=== PATIENT | male | born 1960 | race Caucasian/White ===

== ENCOUNTER 2023-04-20 06:39 | Outpatient (OUT) | payer OTHER, SELFPAY ==
[2023-04-20 08:36] LABS: Prostate Specific Antigen Dx <0.13 ng/mL (<=4.00)
== END 2023-04-20 06:40 | disposition home or self-care (01) ==
LOC: LAB 06:46
PROVIDERS: PCP Internal Medicine; Visit Provider Urology
DX: C61 Malignant neoplasm of prostate (principal)
CPT/HCPCS: 36415; 84153

== ENCOUNTER 2023-12-29 11:47 | Outpatient (OUT) | payer OTHER, SELFPAY ==
[2023-12-29 12:55] LABS: Prostate Specific Antigen Dx <0.13 ng/mL (<=4.00)
== END 2023-12-29 11:48 | disposition home or self-care (01) ==
LOC: LAB 11:48
PROVIDERS: PCP Internal Medicine; Visit Provider Urology
DX: C61 Malignant neoplasm of prostate (principal)
CPT/HCPCS: 36415; 84153

== ENCOUNTER 2024-04-22 14:03 | Outpatient (OUT) | payer OTHER, SELFPAY ==
[2024-04-22 14:29] LABS: Basophils Absolute Auto 0.1 10^3/uL (0.0-0.1); Basophils Percent Auto 0.8 % (0.2-2.0); Eosinophils Absolute Auto 0.1 10^3/uL (0.0-0.7); Eosinophils Percent Auto 1.1 % (0.9-7.0); Hematocrit 44.6 % (42.0-54.0); Immature Granulocytes Abs Auto 0.01 10^3/uL (0.00-0.03); Immature Granulocytes Pct Auto 0.1 % (0.0-0.5); Lymphocytes Absolute Auto 1.5 10^3/uL (1.2-3.8); Lymphocytes Percent Auto 20.3 % (20.5-60.0); Mean Corpuscular HGB Conc 33.6 g/dL (29.9-35.2); Mean Corpuscular Hemoglobin 29.4 pg (25.9-34.0); Mean Corpuscular Volume 87.3 fL (80.0-94.0); Mean Platelet Volume 9.4 fL (9.5-13.5); Monocytes Absolute Auto 0.5 10^3/uL (0.3-0.8); Neutrophils Percent Auto 70.7 % (43.0-75.0); Platelet Count 257 10^3/uL (150-450); Red Blood Count 5.11 10^6/uL (4.70-6.10); White Blood Count 7.1 10^3/uL (4.0-11.0)
[2024-04-22 15:17] LABS: Alanine Aminotransferase 17 U/L (16-63); Albumin Globulin Ratio 1.3; Albumin Level 3.9 g/dL (3.4-5.0); Alkaline Phosphatase 57 U/L (46-116); Anion Gap 11.7; Aspartate Amino Transferase 12 U/L (15-37); BUN Creatinine Ratio 19.1; Bilirubin Total 0.8 mg/dL (0.2-1.0); Chloride 101 mmol/L (98-107); Estimated GFR (African America >60 (>=60); Estimated GFR (Non-African Ame >60 (>=60); Glucose 105 mg/dL (74-106); Potassium 3.7 mmol/L (3.5-5.1); Sodium 138 mmol/L (136-145); Thyroid Stimulating Hormone 1.183 uIU/mL (0.358-3.740); Total Protein 6.9 g/dL (6.4-8.2)
== END 2024-04-22 14:04 | disposition home or self-care (01) ==
LOC: LAB 14:04
PROVIDERS: PCP Internal Medicine; Visit Provider Internal Medicine
DX: R63.4 Abnormal weight loss (principal); C61 Malignant neoplasm of prostate; I10 Essential (primary) hypertension; E78.00 Pure hypercholesterolemia, unspecified
CPT/HCPCS: 36415; 80053; 84443; 85025

== ENCOUNTER 2024-04-25 13:55 | Emergency (ER) | payer OTHER, SELFPAY ==
[2024-04-25 14:09] VITALS: BP 134/91; PULSE 98; TEMP 37.3; O2SAT 98
--- NOTE | 2024-04-25 15:20 | CT_ITS ---
The [address] [address] Patient Name: JACQUELINE DIAZ MRN: [id number] date: 1960 Sex: M Assigned Patient Location: ER Current Patient Location: ER Accession/Order Number: [id number] Exam Date: 04/25/2024 15:43 Report Date: 04/25/2024 16:17 At the request of: CURLY WYNNE Procedure: CT abdomen pelvis w con CT ABDOMEN/PELVIS WITH IV CONTRAST. INDICATION: 20 lb weight loss. COMPARISON: There are no other studies available for comparison. TECHNIQUE: Contiguous axial images were obtained from the lung bases to the pelvic floor following the intravenous administration of contrast. Coronal and sagittal reformations are provided. FINDINGS: LOWER LUNGS: Clear. LIVER/BILIARY TREE: No mass. No intrahepatic ductal dilatation. There are calcified granulomas GALLBLADDER: No significant gallbladder wall thickening. No radiopaque stone. CBD: Normal CBD. SPLEEN: Normal in size. There are calcified granulomas. PANCREAS: No acute findings. No peripancreatic fluid or inflammation. No pancreatic duct dilatation. No discrete mass. ADRENALS: Normal. KIDNEYS: There are a few bilateral renal cysts measuring up to 1.3 cm and the right kidney. No hydronephrosis. There are nonobstructing bilateral renal stones measuring up to 2 mm. STOMACH AND BOWEL: Stomach is unremarkable. No dilated bowel loops. No bowel wall thickening. Moderate colonic fecal load. APPENDIX: Normal appendix. PERITONEAL CAVITY: No fluid. No fat stranding. ABDOMINAL WALL: No subcutaneous stranding. No subcutaneous fluid collection. LYMPH NODES: No mesenteric or retroperitoneal lymphadenopathy by CT criteria. ABDOMINAL AORTA: No aneurysm. PELVIS: Decompressed bladder. Status post prostatectomy. MUSCULOSKELETAL: No acute osseous abnormality. CT/CT abdomen pelvis w con IMPRESSION: No acute abnormality in the abdomen or pelvis. Moderate colonic and rectal fecal load. Electronically authenticated by: PRIMO URENA Date: 04/25/2024 16:17
--- NOTE | 2024-04-25 15:20 | XR_ITS ---
The [address] [address] Patient Name: JACQUELINE DIAZ MRN: [id number] date: 1960 Sex: M Assigned Patient Location: ER Current Patient Location: ER Accession/Order Number: [id number] Exam Date: 04/25/2024 15:52 Report Date: 04/25/2024 16:16 At the request of: CURLY WYNNE Procedure: XR chest 2V EXAM: XR chest 2V HISTORY: 20 lb wieght loss COMPARISON: 02/25/2021 TECHNIQUE: Chest X-ray, 2 views FINDINGS: Support devices: None. Lungs/pleura: No consolidation, effusion, or pneumothorax. No visible mass. Calcified granuloma is noted in the right upper lobe. Heart and mediastinum: Normal contours. No lymphadenopathy. Right paratracheal and hilar calcified lymph nodes, likely due to prior granulomatous disease. Bones: No acute abnormality identified. XR/XR chest 2V Impression: No radiographic evidence of acute cardiopulmonary process. Electronically authenticated by: LOREE MUHAMMAD Date: 04/25/2024 16:16
[2024-04-25 15:38] LABS: Bilirubin Urine NEGATIVE (NEGATIVE); Blood Urine NEGATIVE (NEGATIVE); Clarity Urine CLEAR (CLEAR); Color Urine YELLOW (YELLOW); Glucose Urine UA 100 mg/dL (NEGATIVE); Ketones Urine 15 mg/dL (NEGATIVE); Leukocyte Esterase Urine NEGATIVE (NEGATIVE); Nitrite Urine NEGATIVE (NEGATIVE); Protein Urine NEGATIVE (NEG/TRACE); Specific Gravity Urine >=1.030 (1.005-1.025)
--- NOTE | 2024-04-25 16:16 | ED.GENADUL1 ---
HPI HPI - General Adult General Chief complaint: Recheck/Abnormal Lab/Rx Stated complaint: GENERAL WEAKNESS Time Seen by Provider: 04/25/24 15:13 Source: patient Mode of arrival: walk-in Limitations: no limitations History of Present Illness HPI narrative: 63-year-old gentleman presents here with a chief complaint of constipation and decreased appetite. He states his stomach has been growling more than usual but he does not feel like eating. He states he believes he may have a pinworm infection although he is not seeing any sort of abnormalities in his stool. He had blood work drawn today by his primary care physician's office results were reviewed here. Patient states he also had orders for a CT scan and chest x-ray which she has not yet had performed. Patient's vital signs are stable. He does not appear toxic abdomen soft nontender to palpation initially. Related Data Previous Rx's ?Medication ?Instructions ?Recorded polyethylene glycol 3350 17 gram 34 g PO DAILY 4 days #14 ea 04/25/24 oral powder packet (Miralax) Allergies Allergy/AdvReac Type Severity Reaction Status Date / Time No Known Drug Allergies Allergy Verified 04/25/24 14:14 Opioid HPI Opioid Management Most Recent Opioid Data: No Data to Display Review of Systems ROS Narrative All Systems are negative except as noted/marked.All systems reviewed and otherwise negative [facility] Medical History (Updated 04/25/24 @ 16:54 by Alysha Osborne) Hypertension ?I10 - Essential (primary) hypertension (ICD-10) Social History Little interest or pleasure in doing things: not at all Feeling down, depressed, or hopeless: not at all Exam Narrative Exam Narrative: Nurses note and vital signs reviewed and patient is not hypoxic. General: The patient appears well and in no apparent distress. Patient is resting comfortably on cart. Skin: Warm, dry, no pallor noted. There is no rash noted. Head: Normocephalic, atraumatic Eye: Normal conjunctiva, no drainage, EOMI. PERRL Ears, Nose, Mouth, and Throat: oral mucosa is moist. Nares patent. Mouth without vesicles. Ear canals patent. Tm's without Erythema Cardiovascular: Regular Rate and Rhythm Respiratory: Patient is in no distress, no accessory muscle use, lungs are clear to auscultation, no wheezing, rales or rhonchi Back: non-tender, no CVA tenderness bilaterally to percussion. GI: Normal bowel sounds, no tenderness to palpation, no masses appreciated. No rebound, guarding, or rigidity noted. Musculoskeletal: The patient has no evidence of calf tenderness, no pitting edema, symmetrical pulses noted bilaterally Neurological: A&O x4, normal speech Psychiatric: Cooperative Constitutional Vital Signs, click to edit/add: Last Vital Signs Temp 99.1 F 04/25/24 14:09 Pulse 98 H 04/25/24 14:09 Resp 18 04/25/24 14:09 BP 134/91 04/25/24 14:09 Pulse Ox 98 04/25/24 14:09 O2 Del Method Room Air 04/25/24 14:09 Course Vital Signs Vital signs: Vital Signs Temperature 99.1 F 04/25/24 14:09 Pulse Rate 98 H 04/25/24 14:09 Respiratory Rate 18 04/25/24 14:09 Blood Pressure 134/91 04/25/24 14:09 Pulse Oximetry 98 04/25/24 14:09 Oxygen Delivery Method Room Air 04/25/24 14:09 Temperature 99.1 F 04/25/24 14:09 Pulse Rate 98 H 04/25/24 14:09 Respiratory Rate 18 04/25/24 14:09 Blood Pressure 134/91 04/25/24 14:09 Pulse Oximetry 98 04/25/24 14:09 Oxygen Delivery Method Room Air 04/25/24 14:09 Medical Decision Making [facility] Narrative Medical decision making narrative: 63-year-old gentleman presents here with a chief complaint of constipation and decreased appetite. He states his stomach has been growling more than usual but he does not feel like eating. He states he believes he may have a pinworm infection although he is not seeing any sort of abnormalities in his stool. He had blood work drawn today by his primary care physician's office results were reviewed here. Patient states he also had orders for a CT scan and chest x-ray which she has not yet had performed. Patient's vital signs are stable. He does not appear toxic abdomen soft nontender to palpation initially. 63-year-old male who presented here with a chief complaint of abdominal discomfort and weight loss. He was seen by primary care physician and had several tests including lab work ordered. Lab work today was reviewed and showed no acute abnormalities. Chest x-ray and CT scan were also ordered but patient had not yet had those completed. Upon arrival to the emergency room today, IV was established patient had a CT scan with contrast as well as a chest x-ray. Reading below shows patient does have a large amount of stool noted in the abdomen. No other acute abnormalities chest x-ray was normal. Patient was able to give us a stool specimen here. He was concerned he states he is no longer staying in his home because of fear of mold and also fear of pinworms he believes he was staying with any other family or friend who states they will no longer let him stay there for fear he has pinworms. Patient has not actually seen any worms or any issues in his stool. As stated cultures have been obtained. Patient will be discharged home prescription for MiraLAX to help with the constipation. Patient is encouraged to follow-up with Dr. Faizan gifford for further evaluation and also a colonoscopy which is to be set up. Patient states he had an order for a colonoscopy in early November and did not have it performed. Appeared toxic. Vital signs are stable he is not febrile abdomen was soft nontender to palpation. Medical Records Medical records reviewed: Yes I reviewed the patient's medical records Lab Data Lab results reviewed: Yes I reviewed the patient's lab results Labs: Lab Results 04/25/24 Range/Units 15:30 Urine Color Yellow (YELLOW) Urine Clarity Clear (CLEAR) Urine pH 6.0 (5.0-9.0) Ur Specific Railroad >=1.030 A (1.005-1.025) Urine Protein Negative (NEG/TRACE) mg/dL Urine Glucose (UA) 100 A (NEGATIVE) mg/dL Urine Ketones 15 A (NEGATIVE) mg/dL Urine Occult Blood Negative (NEGATIVE) Urine Nitrite Negative (NEGATIVE) Urine Bilirubin Negative (NEGATIVE) Urine Urobilinogen 2.0 A (0.2-1.0) EU/dL Ur Leukocyte Esterase Negative (NEGATIVE) Imaging Data CT scan - abdomen: Attestation: I have reviewed the pertinent imaging results. Radiologist's impression: ITS Impressions Abdomen/Pelvis CT 04/25/24 15:20 IMPRESSION: No acute abnormality in the abdomen or pelvis. Moderate colonic and rectal fecal load. Electronically authenticated by: PRIMO URENA Date: 04/25/2024 16:17 Chest X-Ray 04/25/24 15:20 Impression: No radiographic evidence of acute cardiopulmonary process. Electronically authenticated by: LOREE MUHAMMAD Date: 04/25/2024 16:16 Discharge Plan Discharge Chief Complaint: Recheck/Abnormal Lab/Rx Clinical Impression: Constipation Patient Disposition: Home, Self-Care Time of Disposition Decision: 16:54 Condition: Good Prescriptions / Home Meds: New polyethylene glycol 3350 [Miralax] 17 gram powder in packet 34 g PO DAILY 4 Days Qty: 14 0RF Print Language: Hungarian Instructions: Constipation (ED), High Fiber Diet (ED) Referrals: Pardeep Gifford DO [Primary Care Provider] - 1 week
[2024-04-25 17:01] VITALS: BP 134/88; PULSE 80; O2SAT 99
== END 2024-04-25 17:01 | disposition home or self-care (01) ==
PROVIDERS: Physician Assistant; Emergency Provider Emergency Medicine; PCP Internal Medicine
DX: K59.00 Constipation, unspecified (principal)
CPT/HCPCS: 71046; 74177; 81003; 87045; 87046; 87427; 99285; Q9967

== ENCOUNTER 2024-05-21 09:55 | Outpatient (OUT) | payer OTHER, SELFPAY ==
--- OUTSIDE RECORDS SUMMARY | 2024-05-21 10:01 | XMS_ITS | CCD ---
Author Organization [facility] Care Team Providers Care Vision Rehabilitation Therapist Name Role Phone PARDEEP MCLAUGHLIN Primary Care Physician [phone] TRA ., DR IVERSON Attending Unavailable GAITAN ., DR IVERSON Consulting Unavailable GAITAN ., DR IVERSON Admitting Unavailable BALL, DR CERVANTES Primary Care Unavailable GAITAN ., DR IVERSON Attending Unavailable GAITAN ., DR IVERSON Consulting Unavailable GAITAN ., DR IVERSON Admitting Unavailable ARNOLDO, DR CERVANTES Primary Care Unavailable MCGILL, REBEKA Consulting Unavailable GAITAN ., DR IVERSON Attending Unavailable GAITAN ., DR IVERSON Consulting Unavailable GAITAN ., DR IVERSON Admitting Unavailable RANOLDO, DR CERVANTES Primary Care Unavailable NICOLÁS [place], DR CARLITOS Ibanez Consulting Unavaila ble GAITAN ., DR IVERSON Procedure Practitioner Unav ailable AGUBOSIM, BRANDIN Consulting Unavailable DORKOSKIE, MAXIME Consulting Unavailable GAITAN ., DR IVERSON Attending Unavailable GAITAN ., DR IVERSON Consulting Unavailable ARNOLDO, DR CERVANTES Primary Care Unavailable GAITAN ., DR IVERSON Admitting Unavailable ARNOLDO, DR CERVANTES Primary Care Unavailable BALL, DR CERVANTES Admitting Unavailable ARNOLDO, DR CERVANTES Attending Unavailable BALL, DR CERVANTES Consulting Unavailable BALL, DR CERVANTES Primary Care Unavailable GAITAN ., DR IVERSON Attending Unavailable GAITAN ., DR IVERSON Consulting Unavailable GAITAN ., DR IVERSON Admcosta Unavailable GAITAN ., DR IVERSON Attending Unavailable BALL, DR CERVANTES Primary Care Unavailable GAITAN ., DR IVERSON Admcosta Unavailable GAITAN ., DR IVERSON Consulting Unavailable Arnoldo, Pardeep Unavailable Isidoro GAITAN Attending Unavailable Isidoro GAITAN Attending Unavailable Isidoro GAITAN Attending Unavailable Medications Current Medications Medication Drug Class(es) Dates Sig (Normalized) Sig (Original) cephalexin 500 mg oral capsule (2 sources) Cephalosporin Antibacterial Start: 12-17-2021 cephalexin 500 mg Cap Refills(s) 0 Start Date: 12/17/21 Status: Ordered losartan potassium 25 mg oral tablet (5 sources) Angiotensin 2 Receptor Ita Start: 01-01-2024 losartan 25 mg Tab Refills(s) 0 Start Date: 01/01/24 Status: Ordered Start: 06-26-2023 take 1 tablet by corby th every twenty-four hours Losartan Potassium 25 MG 1 tablet Orally Once a day Jun, Active olmesartan medoxomil 5 mg oral tablet (1 source) Angiotensin 2 Receptor Ita Start: 05-31-2023 Olmesartan Medoxomil 5 MG as directed Orally Once a day for 30 days May, Active tadalafil 20 mg oral tablet (10 sources) Phosphodiesterase 5 Inhibitor Start: 04-24-2023 take 1 tablet by mouth once daily as needed Cialis 20 mg Tab 20 mg = 1 tab(s), Oral, Daily, PRN for erectile dysfunction, # 30 tab(s), Refills(s) 1, Pharmacy: [id number], 173, cm, 04/24/23 13:49:00 EDT, Height/Length Dosing, 72.1, kg, 04/24/23 13:49:00 EDT, Weight Dosing Start Date: 04/24/23 Status: Ordered Start: 01-14-2022 End: 01-09-2023 take 1 tablet by mouth every twenty-four hours Cialis 20 MG 1 tablet as needed Orally Once a day for 0 days May, Active Completed/Discontinued Medications Medication Drug Class(es) Dates Sig (Normalized) Sig (Original) erythromycin 500 mg oral tablet (3 sources) Macrolide, Macrolide Antimicrobial Start: 11-25-2021 take 2 tablets by mouth three times daily erythromycin 500 mg Tab 1,000 mg = 2 tab(s), Oral, TID, Take 2 pills at 2pm, 4pm and midnight, # 6 tab(s), Refills(s) 0, Pharmacy: [facility]/pharmacy #[id number], 173, cm, 11/01/21 12:52:00 EDT, Height/Length Dosing, 72.3, kg, 11/01/21 12:52:00 EDT, Weight Dosing Start Date: 11/25/21 Status: Ordered metroNIDAZOLE 250 mg oral tablet (3 sources) Nitroimidazole Antimicrobial Start: 11-25-2021 take 1 tablet by mouth three times daily Flagyl 250 mg Tab 250 mg = 1 tab(s), Oral, TID, Take 1 tablet at 2pm, 4pm and midnight, # 3 tab(s), Refills(s) 0, [id number], cm, 11/01/21 12:52:00 EDT, Height/Length Dosing, 72.3, kg, 11/01/21 12:52:00 EDT, Weight Dosing Start Date: 11/25/21 Status: Ordered neomycin sulfate 500 mg oral tablet (3 sources) Aminoglycoside Antibacterial Start: 11-25-2021 take 2 tablets by mouth three times daily neomycin 500 mg Tab 1,000 mg = 2 tab(s), Oral, TID, Take 2 pills at 2pm, 4pm, and midnight, # 6 tab(s), Refills(s) 0, [id number], cm, 11/01/21 12:52:00 EDT, Height/Length Dosing, 72.3, kg, 11/01/21 12:52:00 EDT, Weight Dosing Start Date: 11/25/21 Status: Ordered Problems Problem Classification Problem Date Documented Da te Episodic/Chronic Anxiety disorders (18 sources) Generalized anxiety disorder; Translations: [Generalized anxiety disorder] Onset: 12-09-2021 08-20-2021 Chronic Cancer of prostate (20 sources) Malignant neoplasm of prostate; Translations: [Malignant tumor of prostate] Onset: 11-01-2021 Chronic Cancer of prostate (2 sources) Personal history of malignant neoplasm of prostate; Translations: [History of malignant neoplasm of prostate] Onset: 01-01-2024 Episodic Disorders of lipid metabolism (17 sources) Hyperlipidemia, group A; Translations: [Hyperlipidemia, unspecified] Onset: 12-16-2021 08-20-2021 Chronic Essential hypertension (8 sources) Essential hypertension; Translations: [Essential (primary) hypertension] Chronic Genitourinary symptoms and ill-defined conditions (7 sources) Unspecified urinary incontinence; Translations: [Urinary incontinence] Onset: 01-14-2022 Chronic Hyperplasia of prostate (13 sources) Benign prostatic hypertrophy with outflow obstruction; Translations: [Benign prostatic hyperplasia with lower urinary tract symptoms] Onset: 11-01-2021 Chronic Mood disorders (9 sources) Recurrent major depressive episodes, mild ; Translations: [Major depressive disorder, single episode, unspecified] Onset: 12-16-2021 08-20-2021 Chronic Other and unspecified benign neoplasm (1 source) Benign neoplasm of descending colon Episodic Other circulatory disease (1 source) Elevated blood-pressure reading, without diagnosis of hypertension Episodic Other diseases of kidney and ureters (1 source) Urinary tract obstruction; Translations: [Other obstructive and reflux uropathy] Onset: 01-14-2022 Episodic Other male genital disorders (2 sources) Male erectile dysfunction, unspecified; Translations: [Erectile dysfunction] Onset: 01-01-2024 Chronic Other screening for suspected conditions (not mental disorders or infectious disease) (13 sources) Raised prostate specific antigen; Translations: [Elevated prostate specific antigen [PSA]] Onset: 11-01-2021 Episodic Otitis media and related conditions (2 sources) Unspecified Eustachian tube disorder, left ear Episodic Unclassified (1 source) CONTACT W/AND (SUSP) EXPOS COVID-19; Translations: [CONTACT W/AND (SUSP) EXPOS COVID-19] Onset: 12-09-2021 Results Test Name Value Interpretation Reference Range Facil ity Ambulatory Visit Summaryon 0 01-01-2024 Ambulatory Visit Summary TAWANDA WARNER :1960 Visit Date:01/01/2024 Ambulatory Visit Instructions Your Diagnosis History of prostate cancer ED (erectile dysfunction) Your Care Team Attending Physician - TRA NAGEL, Isidoro Deshpande Primary Care Physician - ARNOLDO [place], PARDEEP This Is Your Medications List tadalafil (Cialis 20 mg Tab) Contact prescribing physician if questions or concerns losartan (losartan 25 mg Tab) Procedures Performed Radical prostatectomy (12/10/2021), Transrectal biopsy of prostate using ultrasound (US) guidance (10/19/2021), Colonoscopy. Discharge Vitals Heart Rate (Peripheral) 76 Blood Pressure 132/81 Height 173 cm Height 68 in Weight 72 kg Weight 158.4 lb BMI 24.06 What to do next Scheduled Follow-Up Appointments Monday 10:45 AM EDT With: TRA NAGEL, Isidoro Deshpande Where: [facility] Lab Reportson 01-01-2024 Lab Reports [id number] [id number] [facility] Patient Educationon 01-01-20 Patient Education Oncology Prostate Cancer Screening Prostate cancer screening is testing that is done to check for the presence of prostate cancer in men. The prostate gland is a walnut-sized gland that is located below the bladder and in front of the rectum in males. The function of the prostate is to add fluid to semen during ejaculation. Prostate cancer is one of the most common types of cancer in men. Who should have prostate cancer screening? Screening recommendations vary based on age and other risk factors, as well as between the professional organizations who make the recommendations. In general, screening is recommended if: ? You are age 50 to 70 and have an average risk for prostate cancer. You should talk with your health care provider about your need for screening and how often screening should be done. Because most prostate cancers are slow growing and will not cause , screening in this age group is generally reserved for men who have a 10- to 15-year life expectancy. ? You are younger than age 50, and you have these risk factors: ? Having a father, brother, or uncle who has been diagnosed with prostate cancer. The risk is higher if your family member's cancer occurred at an early age or if you have multiple family members with prostate cancer at an early age. ? Being a male who is Black or is of Gene or sub-Saharan descent. In general, screening is not recommended if: ? You are younger than age 40. ? You are between the ages of 40 and 49 and you have no risk factors. ? You are 70 years of age or older. At this age, the risks that screening can cause are greater than the benefits that it may provide. If you are at high risk for prostate cancer, your health care provider may recommend that you have screenings more often or that you start screening at a younger age. How is screening for prostate cancer done? The recommended prostate cancer screening test is a blood test called the prostate-specific antigen (PSA) test. PSA is a protein that is made in the prostate. As you age, your prostate naturally produces more PSA. Abnormally high PSA levels may be caused by: ? Prostate cancer. ? An enlarged prostate that is not caused by cancer (benign prostatic hyperplasia, or BPH). This condition is very common in older men. ? A prostate gland infection (prostatitis) or urinary tract infection. ? Certain medicines such as male hormones (like testosterone) or other medicines that raise testosterone levels. A rectal exam may be done as part of prostate cancer screening to help provide information about the size of your prostate gland. When a rectal exam is performed, it should be done after the PSA level is drawn to avoid any effect on the results. Depending on the PSA results, you may need more tests, such as: ? A physical exam to check the size of your prostate gland, if not done as part of screening. ? Blood and imaging tests. ? A procedure to remove tissue samples from your prostate gland for testing (biopsy). This is the only way to know for certain if you have prostate cancer. What are the benefits of prostate cancer screening? ? Screening can help to identify cancer at an early stage, before symptoms start and when the cancer can be treated more easily. ? There is a small chance that screening may lower your risk of dying from prostate cancer. The chance is small because prostate cancer is a slow-growing cancer, and most men with prostate cancer from a different cause. What are the risks of prostate cancer screening? The main risk of prostate cancer screening is diagnosing and treating prostate cancer that would never have caused any symptoms or problems. This is called overdiagnosisand overtreatment. PSA screening cannot tell you if your PSA is high due to cancer or a different cause. A prostate biopsy is the only procedure to diagnose prostate cancer. Even the results of a biopsy may not tell you if your cancer needs to be treated. Slow-growing prostate cancer may not need any treatment other than monitoring, so diagnosing and treating it may cause unnecessary stress or other side effects. Questions to ask your health care provider ? When should I start prostate cancer screening? ? What is my risk for prostate cancer? ? How often do I need screening? ? What type of screening tests do I need? ? How do I get my test results? ? What do my results mean? ? Do I need treatment? Where to find more information ? The [place] [employer]: www.cancer.org ? [place] [employer]: www.auanet.org Contact a health care provider if: ? You have difficulty urinating. ? You have pain when you urinate or ejaculate. ? You have blood in your urine or semen. ? You have pain in your back or in the area of your prostate. Summary ? Prostate cancer is a common type of cancer in men. The prostate gland is located below the bladder and in front of the rectum. This gland adds flu (more content not included)... Normal [facility] Urology Office/Clinic Noteon 01-01-2024 Urology Office/Clinic Note Chief Complaint 6m PSA HPI Staff 8 month f/u with PSA Dx: prostate cancer S/p radical prostatectomy 12/10/21. *Cialis 20mg PRN-pt states he does not use that often PSA 12/29/23- <0.13 Denies all urinary complaints. No concerns at this time. History of Present Illness Tests reviewed: reviewed UA, PSA I have reviewed the previous health record information and history for this patient from Dr. Gaitan. I have reviewed and verified the staff HPI to be accurate for this encounter. Review of Systems PHQ Score Initial Depression Screen Score: 0 SCORE ROS - Provider Constitutional: denies weight loss, denies hot flashes. Eyes: denies eye problems. Gastrointestinal: denies nausea, denies vomiting. Cardiovascular: denies chest pain or angina. Integumentary: no dryness Musculoskeletal: denies musculoskeletal symptoms. ENMT: denies otolaryngeal symptoms. Respiratory: no shortness of breath. Heme/Lymph: denies easy bleeding tendency, denies easy bruising tendency. Psychiatric: no confusion, no anxiety. Genitourinary: See HPI. Physical Exam Vitals & Measurements HR: 76(Peripheral) BP: 132/81 HT: 68 in HT: 173 cm WT: 72 kg WT: 158.4 lb BMI: 24.06 General Appearance: alert, no distress, well nourished, well developed male. Genitourinary: normal scrotum, normal testes, normal urethra, normal epididymis, normal vas deferens/spermatic cord. Flank Pain: none. Bladder: nonpalpable. Assessment/Plan 1. History of prostate cancer (Z85.46: Personal history of malignant neoplasm of prostate) PSA: 01/12/22 - 0.05 05/05/22 - <0.13 09/08/22 - <0.13 04/20/23 - <0.13 12/29/23 - <0.13 S/p radical prostatectomy 12/10/21. Feels he empties completely. Denies UUI. Occasional weak stream, not bothersome. Denies hesitancy or start/stop stream. Denies gross hematuria. UA today negative for blood and infection. PSA remains stable and undetectable. Discussed extending out surveillance to 1 year vs 6 mos. Pt is agreeable. -PSA in 1 year 2. ED (erectile dysfunction) (N52.9: Male erectile dysfunction, unspecified) Taking Cialis 20mg prn to help with blood flow for erections s/p prostatectomy. Follow-up With When Contact Information TRA NAGEL, Isidoro Deshpande, URL [facility] [address], [place] [address] [id number] Additional Instructions: 1 yr w/ PSA Patient Education Prostate Cancer Screening I, Maddie Hung, personally scribed for Dr. Gaitan on 01/01/2024 11:22:59. . Documentation recorded by the scribe, Maddie Hung, accurately reflects the services(s) I performed and decisions made by me. Authenticated by Dr. Gaitan on 01/01/2024 11:24:52. Problem List/Past Medical History Ongoing BPH with urinary obstruction ED (erectile dysfunction) Elevated PSA HERI (generalized anxiety disorder) History of prostate cancer Hyperlipidemia, group A Mild episode of recurrent major depressive disorder Urinary leakage Historical No qualifying data Procedure/Surgical History Radical prostatectomy (12/10/2021), Transrectal biopsy of prostate using ultrasound (US) guidance (10/19/2021), Colonoscopy. Medications Cialis 20 mg Tab, 20 mg= 1 tab(s), Oral, Daily, PRN, 1 refills losartan 25 mg Tab Allergies No Known Allergies Social History Tobacco Never (less than 100 in lifetime) Tobacco Use:. Never Smokeless Tobacco Use:., 04/24/2023 Family History Diabetes: Father. Hypertension: Father. Prostate cancer: Father. Uterine cancer: Mother. Immunizations Vaccine Date Status Comments influenza virus vaccine, inactivated - Not Given Postpone due to refusal SARS-CoV-2 (COVID-19) Ad26 vaccine 06/30/2021 Recorded SARS-CoV-2 (COVID-19) mRNA BNT-162b2 vax 05/19/2021 Recorded SARS-CoV-2 (COVID-19) mRNA BNT-162b2 vax 05/2021 Recorded Pt had 2 shots SARS-CoV-2 (COVID-19) mRNA BNT-162b2 vax 04/28/2021 Recorded Lab Results Ambulatory Point of Care Results Bilirubin Urine Dipstick: 2+ Moderate (01/01/24 10:57:00) Blood Urine Dipstick: Trace-intact (01/01/24 10:57:00) Glucose Urine Dipstick: Negative (01/01/24 10:57:00) Ketones Urine Dipstick: 2+ 40 mg/dl (01/01/24 10:57:00) Leukocytes Urine Dipstick: Negative (01/01/24 10:57:00) Nitrite Urine Dipstick: Negative (01/01/24 10:57:00) Protein Urine Dipstick: Trace (01/01/24 10:57:00) Specific [place] Urine Dipstick: >=1.030 (01/01/24 10:57:00) Urine Appearance Urine Dipstick: Clear (01/01/24 10:57:00) Urine Color Urine Dipstick: Yellow (01/01/24 10:57:00) Urobilinogen Urine Dipstick: Normal 0.2-1 EU/dl (01/01/24 10:57:00) pH Urine Dipstick: 5.5 (01/01/24 10:57:00) Normal [facility] Comment on above: Result Comment: Elec tronically Signed By: Isidoro GAITAN MD\.br\Date and Time Signed: 01/01/24 11:24 EDT\.br\Electronically Co-Signed By: Maddie Hung\.br\Date and Time Co-Signed: 01/01/24 11:23 EDT Ambulatory Visit Summaryon 0 04-24-2023 Ambulatory Visit Summary TAWANDA WARNER :1960 Visit Date:04/24/2023 Ambulatory Visit Instructions Your Diagnosis Prostate cancer Tests Performed Urnls Dip Stick Auto w/o Microscopy POC [id number] Your Care Team Attending Physician - Isidoro GAITAN MD Primary Care Physician - PARDEEP MCLAUGHLIN DO This Is Your Medications List tadalafil (Cialis 20 mg Tab) Procedures Performed Radical prostatectomy (12/10/2021), Transrectal biopsy of prostate using ultrasound (US) guidance (10/19/2021), Colonoscopy. Discharge Vitals Temperature (Temporal Artery) 36.8 ?C Heart Rate (Peripheral) 84 Blood Pressure 118/82 Height 173 cm Height 68 in Weight 72.1 kg Weight 158.62 lb BMI 24.09 What to do next Scheduled Follow-Up Appointments Monday. 2023 10:30 AM EDT With: TRA NAGEL, Isidoro Deshpande Where: [facility] [place] Kameron Normal [facility] Patient Educationon 04-24-20 Patient Education Oncology Prostate Cancer The prostate is a small gland that produces fluid that makes up semen (seminal fluid). It is located below the bladder in men, in front of the rectum. Prostate cancer is the abnormal growth of cells in the prostate gland. What are the causes? The exact cause of this condition is not known. What increases the risk? You are more likely to develop this condition if: ? You are 65 years of age or older. ? You have a family history of prostate cancer. ? You have a family history of breast and ovarian cancer. ? You have genes that are passed from parent to child (inherited), such as BRCA1 and BRCA2. ? You have Narvaez syndrome. men and men of descent are diagnosed with prostate cancer at higher rates than other men. The reasons for this are not well understood and are likely due to a combination of genetic and environmental factors. What are the signs or symptoms? Symptoms of this condition include: ? Problems with urination. This may include: ? A weak or interrupted flow of urine. ? Trouble starting or stopping urination. ? Trouble emptying the bladder all the way. ? The need to urinate more often, especially at night. ? Blood in urine or semen. ? Persistent pain or discomfort in the lower back, lower abdomen, or hips. ? Trouble getting an erection. ? Weakness or numbness in the legs or feet. How is this diagnosed? This condition can be diagnosed with: ? A digital rectal exam. For this exam, a health care provider inserts a gloved finger into the rectum to feel the prostate gland. ? A blood test called a prostate-specific antigen (PSA) test. ? A procedure in which a sample of tissue is taken from the prostate and checked under a microscope (prostate biopsy). ? An imaging test called transrectal ultrasonography. Once the condition is diagnosed, tests will be done to determine how far the cancer has spread. This is called staging the cancer. Staging may involve imaging tests, such as a bone scan, CT scan, PET scan, or MRI. Stages of prostate cancer The stages of prostate cancer are as follows: ? Stage 1 (I). At this stage, the cancer is found in the prostate only. The cancer is not visible on imaging tests, and it is usually found by accident, such as during prostate surgery. ? Stage 2 (II). At this stage, the cancer is more advanced than it is in stage 1, but the cancer has not spread outside the prostate. ? Stage 3 (III). At this stage, the cancer has spread beyond the outer layer of the prostate to nearby tissues. The cancer may be found in the seminal vesicles, which are near the bladder and the prostate. ? Stage 4 (IV). At this stage, the cancer has spread to other parts of the body, such as the lymph nodes, bones, bladder, rectum, liver, or lungs. Prostate cancer grading Prostate cancer is also graded according to how the cancer cells look under a microscope. This is called the [place] score and the total score can range from 6?10, indicating how likely it is that the cancer will spread (metastasize) to other parts of the body. The higher the score, the greater the likelihood that the cancer will spread. ? [place] 6 or lower: This indicates that the cancer cells look similar to normal prostate cells (well differentiated). ? Mart[place] 7: This indicates that the cancer cells look somewhat similar to normal prostate cells (moderately differentiated). ? [place] 8, 9, or 10: This indicates that the cancer cells look very different than normal prostate cells (poorly differentiated). How is this treated? Treatment for this condition depends on several factors, including the stage of the cancer, your age, personal preferences, and your overall health. Talk with your health care provider about treatment options that are recommended for you. Common treatments include: ? Observation for early stage prostate cancer (active surveillance). This involves having exams, blood tests, and in some cases, more biopsies. For some men, this is the only treatment needed. ? Surgery. Types of surgeries include: ? Open surgery (radical prostatectomy). In this surgery, a larger incision is made to remove the prostate. ? A laparoscopic radical prostatectomy. This is a surgery to remove the prostate and lymph nodes through several small incisions. It is often referred to as a minimally invasive surgery. ? A robotic radical prostatectomy. This is laparoscopic surgery to remove the prostate and lymph nodes with the help of robotic arms that are controlled by the surgeon. ? Cryoablation. This is surgery to freeze and destroy cancer cells. ? Radiation treatment. Types of radiation treatment include: ? External beam radiation. This type aims beams of radiation from outside the body at the prostate to destroy cancerous cells. ? Brachytherapy. This type uses radioactive needles, seeds, wires, or tubes that are implanted into the prostate gland. Like external be (more content not included)... Normal [facility] Reminderson 04-24-2023 Reminders - From: Maddie Hung To: CARMEN Gaitan; Sent: 04/24/2023 17:36:04 EDT Show up: 09/24/2023 16:35:00 EST Subject: PSA prior to appt Reminder Message Please Remember to:_have pt get PSA done prior to appt in 6 months. Normal [facility] Urology Office/Clinic Noteon 04-24-2023 Urology Office/Clinic Note Chief Complaint 6 month F/U with PSA HPI Staff 7 month F/U with PSA Last seen in our office on 09/12/2022 PSA 04/20/23 - 0.13 Previous DX; Prostate Cancer S/p radical prostatectomy done 12/10/21. *Cialis 20 mg QOD to help with blood flow for erections s/p prostatectomy.* He states it did not work well that he noticed. But he wants refills on this, he did not refill due to changing insurance. Urinary leakage Dysuria: _denies Incomplete bladder emptying: denies Hematuria: denies Frequency: 5-6 times a day Urgency: _denies Nocturia: _2-3 times a night Stream: denies hesitation, good stream Leaking: denies Post void dripping: denies Wearing pads/ Depends: denies Urge incontinence: denies Stress incontinence: denies Incontinence without Sensory Awareness: denies Abdominal pain: denies Flank pain: denies Sexual complaints: _denies History of Present Illness Tests reviewed: reviewed UA, PSA I have reviewed the previous health record information and history for this patient from Dr. Gaitan. I have reviewed and verified the staff HPI to be accurate for this encounter. There have been no associated fever, chills, flank pain, or blood in the urine. Denies any urinary infections since last encounter. Review of Systems PHQ Score Initial Depression Screen Score: 0 ROS - Provider Constitutional: denies weight loss, denies hot flashes. Eyes: denies eye problems. Gastrointestinal: denies nausea, denies vomiting. Cardiovascular: denies chest pain or angina. Integumentary: no dryness Musculoskeletal: denies musculoskeletal symptoms. ENMT: denies otolaryngeal symptoms. Respiratory: no shortness of breath. Heme/Lymph: denies easy bleeding tendency, denies easy bruising tendency. Psychiatric: no confusion, no anxiety. Genitourinary: See HPI. Physical Exam Vitals & Measurements T: 36.8 ?C(Temporal Artery) HR: 84(Peripheral) BP: 118/82 HT: 68 in HT: 173 cm WT: 72.1 kg WT: 158.62 lb BMI: 24.09 General Appearance: alert, no distress, well nourished, well developed male. Genitourinary: normal scrotum, normal testes, normal urethra, normal epididymis, normal vas deferens/spermatic cord. Flank Pain: none. Bladder: nonpalpable. Assessment/Plan 1. Prostate cancer (C61: Malignant neoplasm of prostate) S/p radical prostatectomy 12/10/21. Continues taking Cialis 20mg PRN to help with blood flow for erections s/p prostatectomy. Reports he has not been taking it due to worries about insurance coverage. Educated pt to use [employer]. Discussed vacuum device, states he does not have an issue achieving an erection. UA today negative for blood and infection. Denies any bothersome urinary sxs. no leaking. PSA: 01/12/22 - 0.05 05/05/22 - <0.13 09/08/22 - <0.13 04/20/23 - <0.13 Follow up with PSA in 6 months or sooner if needed. Pt understands and agrees with plan. Follow-up With When Contact Information TRA NAGEL, Isidoro Deshpande, NI In 6 months [facility] [address], [place] [phone]- [phone] Additional Instructions: PSA Patient Education Prostate Cancer I, Maddie Hung, personally scribed for Dr. Gaitan on 04/24/2023 15:17:46. . Documentation recorded by the scribe, Maddie Hung, accurately reflects the services(s) I performed and decisions made by me. Authenticated by Dr. Gaitan on 04/24/2023 15:20:28. Problem List/Past Medical History Ongoing BPH with urinary obstruction Elevated PSA HERI (generalized anxiety disorder) Hyperlipidemia, group A Mild episode of recurrent major depressive disorder Prostate cancer Urinary leakage Historical No qualifying data Procedure/Surgical History Radical prostatectomy (12/10/2021), Transrectal biopsy of prostate using ultrasound (US) guidance (10/19/2021), Colonoscopy. Medications Cialis 20 mg Tab, 20 mg= 1 tab(s), Oral, Daily, PRN, 1 refills Allergies No Known Allergies Social History Tobacco Never (less than 100 in lifetime) Tobacco Use:. Never Smokeless Tobacco Use:., 04/24/2023 Family History Diabetes: Father. Hypertension: Father. Prostate cancer: Father. Uterine cancer: Mother. Immunizations Vaccine Date Status Comments influenza virus vaccine, inactivated - Not Given Postpone due to refusal SARS-CoV-2 (COVID-19) Ad26 vaccine 06/30/2021 Recorded SARS-CoV-2 (COVID-19) mRNA BNT-162b2 vax 05/19/2021 Recorded SARS-CoV-2 (COVID-19) mRNA BNT-162b2 vax 05/2021 Recorded Pt had 2 shots SARS-CoV-2 (COVID-19) mRNA BNT-162b2 vax 04/28/2021 Recorded Lab Results Ambulatory Point of Care Results Bilirubin Urine Dipstick: Negative (04/24/23 14:03:00) Blood Urine Dipstick: Negative (04/24/23 14:03:00) Glucose Urine Dipstick: Negative (04/24/23 14:03:00) Ketones Urine Dipstick: Negative (04/24/23 14:03:00) Leukocytes Urine Dipstick: Negative (04/24/23 14:03:00) Nitrite Urine Dipstick: Negative (04/24/23 14:03:00) Protein Urine Dips (more content not included)... Normal [facility] Comment on above: Result Comment: Elec tronically Signed By: Isidoro GAITAN MD\.br\Date and Time Signed: 04/24/23 15:20 EDT\.br\Electronically Co-Signed By: Maddie Hung.br\Date and Time Co-Signed: 04/24/23 15:18 EDT Lab Reportson 04-23-2023 Lab Reports [id number] 0CD:127 Normal [facility] CBC AUTO DIFFon 05-17-2022 BASO # 0.1 103/ul Normal 0.0-0.1 Comment on above: Performed By: #### B MP #### [facility] [address] [place] [address] Dr. Herson Narvaez Basophils/100 WBC (Bld) 1.0 % Normal 0.2-2.0 Comment on above: Performed By: #### B MP #### [facility] [address] [address] [address] Herson Narvaez EO # 0.2 103/ul Normal 0.0-0.7 Comment on above: Performed By: #### B MP #### [facility] [address] [address] [address] Herson Narvaez Eosinophils/100 WBC (Bld) 3.1 % Normal 0.9-7.0 [facility] Comment on above: Performed By: #### B MP #### [facility] [address] [place] [address] Dr. Herson Narvaez Erythrocyte distribution width (RBC) [Ratio] 15.8 % Critically high 11.0-15.0 [facility] Comment on above: Performed By: #### B MP #### [facility] [address] [address] [address] Herson Narvaez Hematocrit (Bld) [Volume fraction] 44.7 % Normal 42.0-54.0 Comment on above: Performed By: #### B MP #### [facility] [address] [place] [address] Dr. Herson Narvaez Hemoglobin (Bld) [Mass/Vol] 14.4 g/dL Normal 14.0-18.0 [facility] Comment on above: Performed By: #### B MP #### [facility] [address] [place] [address] Dr. Herson Narvaez IG # 0.01 10e3/ul Normal 0.00-0.03 [facility] Comment on above: Performed By: #### B MP #### [facility] [address] [place] [address] Dr. Herson Narvaez IG % 0.2 % Normal 0.0-0.5 Comment on above: Performed By: #### B MP #### [facility] [address] [place] [address] Dr. Herson Narvaez LYMPH # 1.5 103/ul Normal 1.2-3.8 [facility] Comment on above: Performed By: #### B MP #### [facility] [address] [place] [address] Dr. Herson Narvaez Lymphocytes/100 WBC (Bld) 26.0 % Normal 20.5-60.0 [facility] Comment on above: Performed By: #### B MP #### [facility] [address] [place] [address] Dr. Herson Narvaez MANUAL DIFF REQ NO Normal [facility] Comment on above: Performed By: #### B MP #### [facility] [address] [place] [address] Dr. Herson Narvaez MCH (RBC) [Entitic mass] 27.9 pg Normal 25.9-34.0 [facility] Comment on above: Performed By: #### B MP #### [facility] [address] [place] [address] Dr. Herson Narvaez MCHC (RBC) [Mass/Vol] 32.2 g/dL Normal 29.9-35.2 [facility] Comment on above: Performed By: #### B MP #### [facility] [address] [place] [address] Dr. Herson Narvaez MCV (RBC) [Entitic vol] 86.6 fL Normal 80.0-94.0 [facility] Comment on above: Performed By: #### B MP #### [facility] [address] [place] [address] Dr. Herson Narvaez MONO # 0.5 103/ul Normal 0.3-0.8 [facility] Comment on above: Performed By: #### B MP #### [facility] [address] [place] [address] Dr. Herson Narvaez Monocytes/100 WBC (Bld) 7.9 % Normal 1.7-12.0 [facility] Comment on above: Performed By: #### B MP #### [facility] [address] [place] [address] Dr. Herson Narvaez NEUT # 3.6 103/ul Normal 1.4-6.5 Comment on above: Performed By: #### B MP #### [facility] [address] [place] [address] Dr. Herson Narvaez Neutrophils/100 WBC (Bld) 61.8 % Normal 43.0-75.0 Comment on above: Performed By: #### B MP #### [facility] [address] [place] [address] Dr. Herson Narvaez Platelet mean volume (Bld) [Entitic vol] 9.6 fL Normal 9.5-13.5 [facility] Comment on above: Performed By: #### B MP #### [facility] [address] [place] [address] Dr. Herson Narvaez PLT 242 103/ul Normal 150-450 [facility] Comment on above: Performed By: #### B MP #### [facility] [address] [place] [address] Dr. Herson Narvaez RBC 5.16 106/ul Normal 4.70-6.10 [facility] Comment on above: Performed By: #### B MP #### [facility] [address] [place] [address] Dr. Herson Narvaez WBC 5.8 103/ul Normal 4.0-11.0 [facility] Comment on above: Performed By: #### B MP #### [facility] [address] [address] [address] Herson Narvaez LIPID PROFILEon 05-17-2022 CHOL-HDL RATIO NORM SEE BELOW Normal Comment on above: Result Comment: 3.3 - 4.4 LOW RISK 4.4 - 7.1 AVERAGE RISK 7.1 - 11.0 MODERATE RISK >11.0 HIGH RISK Performed By: #### B MP #### [facility] [address] [address] [address] Herson Narvaez Cholesterol [Mass/Vol] 199 mg/dL Normal <=200 Comment on above: Performed By: #### B MP #### [facility] [address] [address] [address] Herson Narvaez Cholesterol in HDL [Mass/Vol] 70 mg/dL Critically high 40-60 Comment on above: Performed By: #### B MP #### [facility] [address] [address] [address] Herson Narvaez Cholesterol in LDL [Mass/Vol] 114.6 mg/dL Normal Comment on above: Performed By: #### B MP #### [facility] [address] [address] [address] Herson Narvaez Cholesterol.total/ Cholesterol in HDL [Mass ratio] 2.8 {ratio} Normal Comment on above: Performed By: #### B MP #### [facility] [address] [address] [address] Herson Narvaez HDL NORMAL > or = 60 mg/dl - LO W CARDIOVASCULAR RISK <40 mg/dl - HIGH CARDIOVASCULAR RISK Normal [facility] Comment on above: Performed By: #### B MP #### [facility] [address] [address] [address] Herson Narvaez LDL CALC NORMAL SEE BELOW Normal [facility] Comment on above: Result Comment: <100 mg/dl OPTIMAL 100 - 129 mg/dl NEAR OR ABOVE OPTIMAL 130 - 159 mg/dl BORDERLINE HIGH 160 - 189 mg/dl HIGH >190 mg/dl VERY HIGH Performed By: #### B MP #### [facility] [address] [address] [address] Herson Narvaez Triglyceride [Mass/Vol] 72 mg/dL Normal <=150 Comment on above: Performed By: #### B MP #### [facility] [address] [address] [address] Herson Narvaez VLDL CALC 14.4 mg/dL Normal Comment on above: Performed By: #### B MP #### [facility] [address] [address] [address] Herson Narvaez PROF 14(COMP METB)on 022 Albumin [Mass/Vol] 3.9 g/dL Normal 3.4-5.0 [facility] Comment on above: Performed By: #### L IPID, CMP #### [facility] [address] [place] [address] Dr. Herson Narvaez Albumin/Globulin [Mass ratio] 1.1 {ratio} Normal Comment on above: Performed By: #### L IPID, CMP #### [facility] [address] [place] [address] Dr. Herson Narvaez ALP [Catalytic activity/Vol] 61 U/L Normal 46-116 Comment on above: Performed By: #### L IPID, CMP #### [facility] [address] [place] [address] Dr. Herson Narvaez ALT [Catalytic activity/Vol] 22 U/L Normal 16-63 Comment on above: Performed By: #### L IPID, CMP #### [facility] [address] [place] [address] Dr. Herson Narvaez Anion gap [Moles/Vol] 12.2 mmol/L Normal Comment on above: Performed By: #### L IPID, CMP #### [facility] [address] [place] [address] Dr. Herson Narvaez AST [Catalytic activity/Vol] 18 U/L Normal 15-37 Comment on above: Performed By: #### L IPID, CMP #### [facility] [address] [address] [address] Herson Narvaez Bilirubin [Mass/Vol] 0.5 mg/dL Normal 0.2-1.0 Comment on above: Performed By: #### L IPID, CMP #### [facility] [address] [place] [address] Dr. Herson Narvaez Calcium [Mass/Vol] 8.8 mg/dL Normal 8.5-10.1 [facility] Comment on above: Performed By: #### L IPID, CMP #### [facility] [address] [place] [address] Dr. Herson Narvaez Chloride [Moles/Vol] 105 mmol/L Normal 98-107 Comment on above: Performed By: #### L IPID, CMP #### [facility] [address] [place] [address] Dr. Herson Narvaez CO2 [Moles/Vol] 25.8 mmol/L Normal 21.0-32.0 [place] Comment on above: Performed By: #### L IPID, CMP #### [facility] [address] [place] [address] Dr. Herson Narvaez Creatinine [Mass/Vol] 1.07 mg/dL Normal 0.70-1.30 Comment on above: Performed By: #### L IPID, CMP #### [facility] [address] [place] [address] Dr. Herson Narvaez EGFR-AF EMIRATI >60 Normal >=[address] [facility] Comment on above: Performed By: #### L IPID, CMP #### [facility] [address] [place] [address] Dr. Herson Narvaez EGFR-NON AF EMIRATI >60 Normal >=60 Comment on above: Performed By: #### L IPID, CMP #### [facility] [address] [place] [address] Dr. Herson Narvaez Globulin (S) [Mass/Vol] 3.4 g/dL Normal Comment on above: Performed By: #### L IPID, CMP #### [facility] [address] [address] [address] Herson Narvaez Glucose [Mass/Vol] 113 mg/dL Critically high 74-106 [facility] Comment on above: Performed By: #### L IPID, CMP #### [facility] [address] [address] [address] Herson Narvaez Potassium [Moles/Vol] 4.0 mmol/L Normal 3.5-5.1 Comment on above: Performed By: #### L IPID, CMP #### [facility] [address] [place] [address] Dr. Herson Narvaez Protein [Mass/Vol] 7.3 g/dL Normal 6.4-8.2 [facility] Comment on above: Performed By: #### L IPID, CMP #### [facility] [address] [place] [address] Dr. Herson Narvaez Sodium [Moles/Vol] 139 mmol/L Normal 136-145 [facility] Comment on above: Performed By: #### L IPID, CMP #### [facility] [address] [address] [address] Herson Narvaez Urea nitrogen [Mass/Vol] 14.0 mg/dL Normal 7.0-18.0 Comment on above: Performed By: #### L IPID, CMP #### [facility] [address] [address] [address] Herson Narvaez Urea nitrogen/Creatinin e [Mass ratio] 13.1 mg/mg Normal Comment on above: Performed By: #### L IPID, CMP #### [facility] [address] [address] [address] Herson Narvaez CBC AUTO DIFFon 12-11-2021 BASO # 0.0 103/ul Normal 0.0-0.1 Comment on above: Performed By: #### C BC #### [facility] [address] [address] [address] Herson Narvaez Basophils/100 WBC (Bld) 0.1 % Critically low 0.2-2.0 Comment on above: Performed By: #### C BC #### [facility] [address] [place] [address] Dr. Herson Narvaez EO # 0.0 103/ul Normal 0.0-0.7 Comment on above: Performed By: #### C BC #### [facility] [address] [place] [address] Dr. Herson Narvaez Eosinophils/100 WBC (Bld) 0.0 % Critically low 0.9-7.0 Comment on above: Performed By: #### C BC #### [facility] [address] [place] [address] Dr. Herson Narvaez Erythrocyte distribution width (RBC) [Ratio] 13.8 % Normal 11.0-15.0 Comment on above: Performed By: #### C BC #### [facility] [address] [place] [address] Dr. Herson Narvaez Hematocrit (Bld) [Volume fraction] 32.6 % Critically low 42.0-54.0 Comment on above: Performed By: #### C BC #### [facility] [address] [place] [address] Dr. Herson Narvaez Hemoglobin (Bld) [Mass/Vol] 10.9 g/dL Critically low 14.0-18.0 Comment on above: Performed By: #### C BC #### [facility] [address] [place] [address] Dr. Herson Narvaez IG # 0.11 10e3/ul Critically high 0.00-0.03 [facility] Comment on above: Performed By: #### C BC #### [facility] [address] [place] [address] Dr. Herson Narvaez IG % 0.5 % Normal 0.0-0.5 Comment on above: Performed By: #### C BC #### [facility] [address] [place] [address] Dr. Herson Narvaez LYMPH # 0.9 103/ul Critically low 1.2-3.8 [facility] Comment on above: Performed By: #### C BC #### [facility] [address] [place] [address] Dr. Herson Narvaez Lymphocytes/100 WBC (Bld) 4.6 % Critically low 20.5-60.0 Comment on above: Performed By: #### C BC #### [facility] [address] [place] [address] Dr. Herson Narvaez MANUAL DIFF REQ NO Normal [facility] Comment on above: Performed By: #### C BC #### [facility] [address] [place] [address] Dr. Herson Narvaez MCH (RBC) [Entitic mass] 30.5 pg Normal 25.9-34.0 Comment on above: Performed By: #### C BC #### [facility] [address] [place] [address] Dr. Herson Narvaez MCHC (RBC) [Mass/Vol] 33.4 g/dL Normal 29.9-35.2 Comment on above: Performed By: #### C BC #### [facility] [address] [place] [address] Dr. Herson Narvaez MCV (RBC) [Entitic vol] 91.3 fL Normal 80.0-94.0 Comment on above: Performed By: #### C BC #### [facility] [address] [place] [address] Dr. Herson Navraez MONO # 1.5 103/ul Critically high 0.3-0.8 [facility] Comment on above: Performed By: #### C BC #### [facility] [address] [place] [address] Dr. Herson Narvaez Monocytes/100 WBC (Bld) 7.6 % Normal 1.7-12.0 [facility] Comment on above: Performed By: #### C BC #### [facility] [address] [place] [address] Dr. Herson Narvaez NEUT # 17.4 103/ul Critically high 1.4-6.[address] [facility] Comment on above: Performed By: #### C BC #### [facility] [address] [address] [address] Herson Narvaez Neutrophils/100 WBC (Bld) 87.2 % Critically high 43.0-75.0 Comment on above: Performed By: #### C BC #### [facility] [address] [address] [address] Herson Narvaez Platelet mean volume (Bld) [Entitic vol] 9.3 fL Critically low 9.5-13.5 Comment on above: Performed By: #### C BC #### [facility] [address] [address] [address] Herson Narvaez PLT 224 103/ul Normal 150-450 Comment on above: Performed By: #### C BC #### [facility] [address] [address] [address] Herson Narvaez RBC 3.57 106/ul Critically low 4.70-6.10 [facility] Comment on above: Performed By: #### C BC #### [facility] [address] [address] [address] Herson Narvaez WBC 20.0 103/ul Critically high 4.0-11.0 [place] Comment on above: Performed By: #### C BC #### [facility] [address] [address] [address] Herson Narvaez PROF CHEM 8 (BAS METB)on Anion gap [Moles/Vol] 12.0 mmol/L Normal Comment on above: Performed By: #### B MP #### [facility] [address] [address] [address] Herson Narvaez Calcium [Mass/Vol] 7.3 mg/dL Critically low 8.5-10.1 [facility] Comment on above: Performed By: #### B MP #### [facility] [address] [address] [address] Herson Narvaez Chloride [Moles/Vol] 109 mmol/L Critically high 98-107 Comment on above: Performed By: #### B MP #### [facility] [address] [address] [address] Herson Narvaez CO2 [Moles/Vol] 25.7 mmol/L Normal 21.0-32.0 [place] Comment on above: Performed By: #### B MP #### [facility] [address] [address] [address] Herson Narvaez Creatinine [Mass/Vol] 1.48 mg/dL Critically high 0.70-1.30 Comment on above: Performed By: #### B MP #### [facility] [address] [address] [address] Herson Narvaez EGFR-AF EMIRATI 58 mL/min/1.73m2 Critically low >=60 Comment on above: Performed By: #### B MP #### [facility] [address] [address] [address] Herson Narvaez EGFR-NON AF EMIRATI 48 mL/min/1.73m2 Critically low >=60 Comment on above: Performed By: #### B MP #### [facility] [address] [address] [address] Herson Narvaez Glucose [Mass/Vol] 144 mg/dL Critically high 74-106 [facility] Comment on above: Performed By: #### B MP #### [facility] [address] [address] [address] Herson Narvaez Potassium [Moles/Vol] 4.7 mmol/L Normal 3.5-5.1 Comment on above: Performed By: #### B MP #### [facility] [address] [address] [address] Herson Narvaez Sodium [Moles/Vol] 142 mmol/L Normal 136-145 [facility] Comment on above: Performed By: #### B MP #### [facility] [address] [address] [address] Herson Narvaez Urea nitrogen [Mass/Vol] 19.0 mg/dL Critically high 7.0-18.0 Comment on above: Performed By: #### B MP #### [facility] [address] [address] [address] Herson Narvaez Urea nitrogen/Creatinin e [Mass ratio] 12.8 mg/mg Normal [facility] Comment on above: Performed By: #### B MP #### [facility] [address] [place] [address] Dr. Herson Narvaez CBC AUTO DIFFon 12-10-2021 BASO # 0.0 103/ul Normal 0.0-0.1 Comment on above: Performed By: #### C BC #### [facility] [address] [place] [address] Dr. Herson Narvaez Basophils/100 WBC (Bld) 0.2 % Normal 0.2-2.0 Comment on above: Performed By: #### C BC #### [facility] [address] [place] [address] Dr. Herson Narvaez EO # 0.0 103/ul Normal 0.0-0.7 Comment on above: Performed By: #### C BC #### [facility] [address] [place] [address] Dr. Herson Narvaez Eosinophils/100 WBC (Bld) 0.1 % Critically low 0.9-7.0 Comment on above: Performed By: #### C BC #### [facility] [address] [place] [address] Dr. Herson Narvaez Erythrocyte distribution width (RBC) [Ratio] 13.3 % Normal 11.0-15.0 Comment on above: Performed By: #### C BC #### [facility] [address] [place] [address] Dr. Herson Narvaez Hematocrit (Bld) [Volume fraction] 33.6 % Critically low 42.0-54.0 Comment on above: Performed By: #### C BC #### [facility] [address] [place] [address] Dr. Herson Narvaez Hemoglobin (Bld) [Mass/Vol] 11.2 g/dL Critically low 14.0-18.0 Comment on above: Performed By: #### C BC #### [facility] [address] [place] [address] Dr. Herson Narvaez IG # 0.08 10e3/ul Critically high 0.00-0.03 [facility] Comment on above: Performed By: #### C BC #### [facility] [address] [place] [address] Dr. Herson Narvaez IG % 0.5 % Normal 0.0-0.5 Comment on above: Performed By: #### C BC #### [facility] [address] [place] [address] Dr. Herson Narvaez LYMPH # 1.1 103/ul Critically low 1.2-3.8 [facility] Comment on above: Performed By: #### C BC #### [facility] [address] [place] [address] Dr. Herson Narvaez Lymphocytes/100 WBC (Bld) 6.2 % Critically low 20.5-60.0 Comment on above: Performed By: #### C BC #### [facility] [address] [place] [address] Dr. Herson Narvaez MANUAL DIFF REQ NO Normal [facility] Comment on above: Performed By: #### C BC #### [facility] [address] [place] [address] Dr. Herson Narvaez MCH (RBC) [Entitic mass] 29.6 pg Normal 25.9-34.0 Comment on above: Performed By: #### C BC #### [facility] [address] [place] [address] Dr. Herson Narvaez MCHC (RBC) [Mass/Vol] 33.3 g/dL Normal 29.9-35.2 Comment on above: Performed By: #### C BC #### [facility] [address] [place] [address] Dr. Herson Narvaez MCV (RBC) [Entitic vol] 88.9 fL Normal 80.0-94.0 Comment on above: Performed By: #### C BC #### [facility] [address] [address] [address] Herson Narvaez MONO # 0.3 103/ul Normal 0.3-0.8 [facility] Comment on above: Performed By: #### C BC #### [facility] [address] [address] [address] Herson Narvaez Monocytes/100 WBC (Bld) 1.8 % Normal 1.7-12.0 Comment on above: Performed By: #### C BC #### [facility] [address] [address] [address] Herson Narvaez NEUT # 15.7 103/ul Critically high 1.4-6.5 [place] Comment on above: Performed By: #### C BC #### [facility] [address] [place] [address] Dr. Herson Narvaez Neutrophils/100 WBC (Bld) 91.2 % Critically high 43.0-75.0 Comment on above: Performed By: #### C BC #### [facility] [address] [address] [address] Herson Narvaez Platelet mean volume (Bld) [Entitic vol] 9.1 fL Critically low 9.5-13.5 Comment on above: Performed By: #### C BC #### [facility] [address] [address] [address] Herson Narvaez PLT 229 103/ul Normal 150-450 [facility] Comment on above: Performed By: #### C BC #### [facility] [address] [address] [address] Herson Narvaez RBC 3.78 106/ul Critically low 4.70-6.10 [facility] Comment on above: Performed By: #### C BC #### [facility] [address] [address] [address] Herson Narvaez WBC 17.1 103/ul Critically high 4.0-11.[address] [facility] Comment on above: Performed By: #### C BC #### [facility] [address] [address] [address] Herson Narvaez PROF CHEM 8 (BAS METB)on Anion gap [Moles/Vol] 11.0 mmol/L Normal Comment on above: Performed By: #### B MP #### [facility] [address] [address] [address] Herson Narvaez Calcium [Mass/Vol] 7.1 mg/dL Critically low 8.5-10.1 [facility] Comment on above: Performed By: #### B MP #### [facility] [address] [address] [address] Herson Narvaez Chloride [Moles/Vol] 104 mmol/L Normal 98-107 Comment on above: Performed By: #### B MP #### [facility] [address] [place] [address] Dr. Herson Narvaez CO2 [Moles/Vol] 24.9 mmol/L Normal 21.0-32.0 [place] Comment on above: Performed By: #### B MP #### [facility] [address] [address] [address] Herson Narvaez Creatinine [Mass/Vol] 1.22 mg/dL Normal 0.70-1.30 Comment on above: Performed By: #### B MP #### [facility] [address] [address] [address] Herson Narvaez EGFR-AF EMIRATI >60 Normal >=60 [place] Comment on above: Performed By: #### B MP #### [facility] [address] [address] [address] Herson Narvaez EGFR-NON AF EMIRATI 60 mL/min/1.73m2 Normal >=60 Comment on above: Performed By: #### B MP #### [facility] [address] [address] [address] Herson Narvaez Glucose [Mass/Vol] 185 mg/dL Critically high 74-106 [facility] Comment on above: Performed By: #### B MP #### [facility] [address] [address] [address] Herson Narvaez Potassium [Moles/Vol] 3.9 mmol/L Normal 3.5-5.1 Comment on above: Performed By: #### B MP #### [facility] [address] [address] [address] Herson Narvaez Sodium [Moles/Vol] 136 mmol/L Normal 136-145 [facility] Comment on above: Performed By: #### B MP #### [facility] [address] [address] [address] Herson Narvaez Urea nitrogen [Mass/Vol] 18.0 mg/dL Normal 7.0-18.0 Comment on above: Performed By: #### B MP #### [facility] [address] [address] [address] Herson Narvaez Urea nitrogen/Creatinin e [Mass ratio] 14.7 mg/mg Normal Comment on above: Performed By: #### B MP #### [facility] [address] [address] [address] Herson Narvaez [facility]on [facility]-13 SARS-CoV-2 (COVID-19) RNA SHANNEN+probe Ql (Unsp spec) Not detected Normal NOT DETECTED [facility] Comment on above: Result Comment: This test is not yet approved or cleared by the [place] FDA. When there are no FDA-approved or cleared tests available, and other criteria are met, FDA can make tests available under an emergency access mechanism called an Emergency Use Authorization (EUA). The EUA for this test is supported by the Line O Scribe Operator of Health and Human Service's (HHS's) declaration that circumstances exist to justify the emergency use of in vitro diagnostics for the detection and/or diagnosis of the virus that causes COVID-19. This EUA will remain in effect (meaning this test can be used) for the duration of the COVID-19 declaration justifying emergency of IVDs, unless it is terminated or revoked by FDA (after which the test may no longer be used). When diagnostic testing is negative, the possibility of a false negative should be considered in the context of a patient's recent exposures and the presence of clinical signs and symptoms consistent with SARS-CoV-2. Performed By: #### C VDTB #### [facility] [address] [place] [address] Dr. Herson Narvaez TYPE AND SCREENon 12-07-2021 TYPE AND SCREEN Negative Normal [facility] Comment on above: Performed By: #### B MP #### [facility] [address] [place] [address] Dr. Herson Narvaez CBC AUTO DIFFon 11-29-2021 BASO # 0.1 103/ul Normal 0.0-0.1 Comment on above: Performed By: #### C BC #### [facility] [address] [place] [address] Dr. Herson Narvaez Basophils/100 WBC (Bld) 1.2 % Normal 0.2-2.0 Comment on above: Performed By: #### C BC #### [facility] [address] [place] [address] Dr. Herson Narvaez EO # 0.4 103/ul Normal 0.0-0.7 Comment on above: Performed By: #### C BC #### [facility] [address] [place] [address] Dr. Herson Narvaez Eosinophils/100 WBC (Bld) 5.4 % Normal 0.9-7.0 Comment on above: Performed By: #### C BC #### [facility] [address] [place] [address] Dr. Herson Narvaez Erythrocyte distribution width (RBC) [Ratio] 13.6 % Normal 11.0-15.0 [facility] Comment on above: Performed By: #### C BC #### [facility] [address] [place] [address] Dr. Herson Narvaez Hematocrit (Bld) [Volume fraction] 43.2 % Normal 42.0-54.0 Comment on above: Performed By: #### C BC #### [facility] [address] [place] [address] Dr. Herson Narvaez Hemoglobin (Bld) [Mass/Vol] 14.6 g/dL Normal 14.0-18.0 Comment on above: Performed By: #### C BC #### [facility] [address] [place] [address] Dr. Herson Narvaez IG # 0.02 10e3/ul Normal 0.00-0.03 Comment on above: Performed By: #### C BC #### [facility] [address] [place] [address] Dr. Herson Narvaez IG % 0.3 % Normal 0.0-0.5 Comment on above: Performed By: #### C BC #### [facility] [address] [place] [address] Dr. Herson Narvaez LYMPH # 2.3 103/ul Normal 1.2-3.8 Comment on above: Performed By: #### C BC #### [facility] [address] [place] [address] Dr. Herson Narvaez Lymphocytes/100 WBC (Bld) 33.2 % Normal 20.5-60.0 Comment on above: Performed By: #### C BC #### [facility] [address] [place] [address] Dr. Herson Narvaez MANUAL DIFF REQ NO Normal [facility] Comment on above: Performed By: #### C BC #### [facility] [address] [place] [address] Dr. Herson Narvaez MCH (RBC) [Entitic mass] 30.0 pg Normal 25.9-34.0 Comment on above: Performed By: #### C BC #### [facility] [address] [place] [address] Dr. Herson Narvaez MCHC (RBC) [Mass/Vol] 33.8 g/dL Normal 29.9-35.2 Comment on above: Performed By: #### C BC #### [facility] [address] [place] [address] Dr. Herson Narvaez MCV (RBC) [Entitic vol] 88.7 fL Normal 80.0-94.0 Comment on above: Performed By: #### C BC #### [facility] [address] [place] [address] Dr. Herson Narvaez MONO # 0.6 103/ul Normal 0.3-0.8 Comment on above: Performed By: #### C BC #### [facility] [address] [place] [address] Dr. Herson Narvaez Monocytes/100 WBC (Bld) 8.3 % Normal 1.7-12.0 Comment on above: Performed By: #### C BC #### [facility] [address] [place] [address] Dr. Herson Narvaez NEUT # 3.6 103/ul Normal 1.4-6.5 Comment on above: Performed By: #### C BC #### [facility] [address] [place] [address] Dr. Herson Narvaez Neutrophils/100 WBC (Bld) 51.6 % Normal 43.0-75.0 Comment on above: Performed By: #### C BC #### [facility] [address] [place] [address] Dr. Herson Narvaez Platelet mean volume (Bld) [Entitic vol] 9.0 fL Critically low 9.5-13.5 Comment on above: Performed By: #### C BC #### [facility] [address] [place] [address] Dr. Herson Narvaez PLT 231 103/ul Normal 150-450 [facility] Comment on above: Performed By: #### C BC #### [facility] [address] [place] [address] Dr. Herson Narvaez RBC 4.87 106/ul Normal 4.70-6.10 [facility] Comment on above: Performed By: #### C BC #### [facility] [address] [place] [address] Dr. Herson Narvaez WBC 6.9 103/ul Normal 4.0-11.0 [facility] Comment on above: Performed By: #### C BC #### [facility] [address] [address] [address] Herson Narvaez LIVER PROFILEon 11-29-2021 Albumin [Mass/Vol] 3.7 g/dL Normal 3.4-5.0 [facility] Comment on above: Performed By: #### L IVER, BMP #### [facility] [address] [address] [address] Herson Narvaez Albumin/Globulin [Mass ratio] 1.2 {ratio} Normal Comment on above: Performed By: #### L IVER, BMP #### [facility] [address] [address] [address] Herson Narvaez ALP [Catalytic activity/Vol] 52 U/L Normal 46-116 Comment on above: Performed By: #### L IVER, BMP #### [facility] [address] [address] [address] Herson Narvaez ALT [Catalytic activity/Vol] 30 U/L Normal 16-63 Comment on above: Performed By: #### L IVER, BMP #### [facility] [address] [address] [address] Herson Narvaez AST [Catalytic activity/Vol] 16 U/L Normal 15-37 Comment on above: Performed By: #### L IVER, BMP #### [facility] [address] [address] [address] Herson Narvaez BILI, CONJUGATED 0.1 mg/dL Normal 0.0-0.3 [place] Comment on above: Performed By: #### L IVER, BMP #### [facility] [address] [address] [address] Herson Narvaez Bilirubin [Mass/Vol] 0.5 mg/dL Normal 0.2-1.3 Comment on above: Performed By: #### L IVER, BMP #### [facility] [address] [address] [address] Herson Narvaez Globulin (S) [Mass/Vol] 3.2 g/dL Normal Comment on above: Performed By: #### L IVJERROD, BMP #### [facility] [address] [place] [address] Dr. Herson Narvaez Protein [Mass/Vol] 6.9 g/dL Normal 6.1-8.2 [facility] Comment on above: Performed By: #### L IVJERROD, BMP #### [facility] [address] [place] [address] Dr. Herson Narvaez PROF CHEM 8 (BAS METB)on Anion gap [Moles/Vol] 14.0 mmol/L Normal Comment on above: Performed By: #### L IVJERROD, BMP #### [facility] [address] [place] [address] Dr. Herson Narvaez Calcium [Mass/Vol] 8.5 mg/dL Normal 8.5-10.1 [facility] Comment on above: Performed By: #### L GERMÁN, BMP #### [facility] [address] [place] [address] Dr. Herson Narvaez Chloride [Moles/Vol] 106 mmol/L Normal 98-107 [facility] Comment on above: Performed By: #### L GERMÁN, BMP #### [facility] [address] [place] [address] Dr. Herson Narvaez CO2 [Moles/Vol] 26.3 mmol/L Normal 22.0-30.[address] [facility] Comment on above: Performed By: #### L GERMÁN, BMP #### [facility] [address] [place] [address] Dr. Herson Narvaez Creatinine [Mass/Vol] 0.98 mg/dL Normal 0.66-1.25 [facility] Comment on above: Performed By: #### L IVJERROD, BMP #### [facility] [address] [place] [address] Dr. Herson Narvaez EGFR-AF EMIRATI >94 Normal >=[address] [facility] Comment on above: Performed By: #### L GERMÁN, BMP #### [facility] [address] [place] [address] Dr. Herson Narvaez EGFR-NON AF EMIRATI >77 Normal >=60 [facility] Comment on above: Performed By: #### L GERMÁN, BMP #### [facility] [address] [place] [address] Dr. Herson Narvaez Glucose [Mass/Vol] 95 mg/dL Normal 74-106 [facility] Comment on above: Performed By: #### L GERMÁN, BMP #### [facility] [address] [place] [address] Dr. Herson Narvaez Potassium [Moles/Vol] 4.3 mmol/L Normal 3.4-5.0 Comment on above: Performed By: #### Shamar DUNLAP, BMP #### [facility] [address] [place] [address] Dr. Herson Narvaez Sodium [Moles/Vol] 142 mmol/L Normal 137-145 [facility] Comment on above: Performed By: #### Shamar DUNLAP, BMP #### [facility] [address] [place] [address] Dr. Herson Narvaez Urea nitrogen [Mass/Vol] 20.0 mg/dL Critically high 7.0-18.0 Comment on above: Performed By: #### Shamar DUNLAP, BMP #### [facility] [address] [place] [address] Dr. Herson Narvaez Urea nitrogen/Creatinin e [Mass ratio] 20.4 mg/mg Normal [facility] Comment on above: Performed By: #### Shamar DUNLAP, BMP #### [facility] [address] [place] [address] Dr. Herson Narvaez PROTIMEon 11-29-2021 INR Coag (PPP) [Relative time] 1.08 {INR} Normal Comment on above: Performed By: #### B MP #### [facility] [address] [place] [address] Dr. Herson Narvaez INR GUIDELINES SEE BELOW Normal [facility] Comment on above: Result Comment: MODESTA RED INR: 2.0 - 3.0 CONDITIONS NOT LISTED BELOW 2.5 - 3.5 FOR PROSTHETIC HEART VALVE REPLACEMENT 2.5 - 3.5 RECURRENT THROMBOSIS Performed By: #### B MP #### [facility] [address] [place], [place] [address] Dr. Herson Narvaez PT Coag (PPP) [Time] 11.6 s Normal 9.0-11.6 Comment on above: Performed By: #### B MP #### [facility] [address] [place], [place] [address] Dr. Herson Narvaez PTTon 11-29-2021 aPTT Coag (Bld) [Time] 23.9 s Normal 22.3-36.2 Comment on above: Performed By: #### B MP #### [facility] [address] [place], [place] [address] Dr. Herson Narvaez MR prostate wo/w conon 09-02 MR prostate wo/w con [facility] [address] MRI Report Signed Patient: Tawanda Warner MR#: [id number] : 1960 Acct:[id number] Age/Sex: 61 / M ADM Date: 09/01/21 Loc: MR Room: Type: [facility] Attending Dr: Isidoro Gaitan MD Ordering Provider: Isidoro Gaitan MD Date of Service: 09/01/21 MR/MR prostate wo/w con: ELEVATED PSA Copies to: Isidoro Gaitan MD EXAMINATION: MR prostate wo/w con HISTORY: Elevated PSA level COMPARISON: NONE TECHNIQUE: Multiparametric imaging of the prostate gland was performed with IV contrast. FINDINGS: Prostate Dimensions: 5.0 x 3.7 x 4.6 cm Prostate Volume: 45 mL Peripheral Zone: Heterogenous and T2 signal suggestive of prior prostatitis. No focal T2 or ADC map abnormality is identified to suggest prostate malignancy. No suspicious abnormal enhancement is seen. Central/Transitional Zone: BPH changes. No focal T2 or ADC map abnormalities identified to suggest prostate malignancy. No suspicious abnormal enhancement is seen. Seminal Vesicles: Unremarkable Neurovascular bundles: Unremarkable. Lymphadenopathy: No evidence of lymphadenopathy. Bladder: The bladder is unremarkable. Bowel: The visualized bowel is without acute abnormality. Peritoneal Cavity: No free fluid. Bones: No aggressive bony lesions. MR/MR prostate wo/w con IMPRESSION: * No MRI evidence of prostate malignancy. * BPH changes. * Heterogenous T2 signal involving the peripheral zone suggestive of prior prostatitis. Impression dictated by: Jonh Fuentes Jr., Jalen09/02/2021 1:49 PM Dictation Location: [place] [address] Transcribed By: [facility] 09/02/21 1349 Dictated By: Jonh Fuentes Jr DO 09/02/21 1340 Signed By: 09/02/21 1349 Normal [facility] Blood Urea Nitrogenon 2021 Urea nitrogen [Mass/Vol] 21 mg/dL Normal 9-23 [facility] Comment on above: Performed By: #### C CHICHO BUN #### [facility] [address] [place] [address] Creatinineon 09-01-2021 Creatinine [Mass/Vol] 1.01 mg/dL Normal 0.64-1.27 [facility] Comment on above: Performed By: #### C CHICHO BUN #### [address] Estimated GFR ( Ronda > 60 Normal [facility] Comment on above: Result Comment: GFR estimated reference range: According to KDOQI guidelines, <60 ml/min/1.73m2 is sufficient to diagnose a patient with chronic kidney disease. PERFORMED BY: [place] [address] PATHOLOGIST [employer] ZHANNA LUCAS M.D. Performed By: #### C CHICHO BUN #### [facility] [address] [place] [address] Estimated GFR (Non- Am > 60 Normal [facility] Comment on above: Performed By: #### C CHICHO BUN #### [place] [id number] [facility] Vital Signs Date Time Vital Sign Value Performing Clinician Facility 01-01-2024 11:00-0400 Blood Pressure Location Isidoro GAITAN [facility] 05-20-2024 11:00-0400 Diastolic blood pressure 81 mm[Hg] Isidoro GAITAN [facility] 01-01-2024 11:00-0400 Heart rate 76 /min Isidoro GAITAN [facility] 01-01-2024 11:00-0400 Systolic blood pressure 132 mm[Hg] Isidoro GIATAN [facility] 09-18-2023 08:30-0500 Body height 172.72 cm Pardeep Ball Other [facility] Other 09-18-2023 08:30-0500 Body mass index (BMI) [Ratio] 27.76 kg/m2 Pardeep Ball Other [facility] Other 09-18-2023 08:30-0500 Body weight 82.83 kg Pardeep Ball Other [facility] Other 09-18-2023 08:30-0500 Diastolic blood pressure 88 mm[Hg] Pardeep Ball Other [facility] Other 09-18-2023 08:30-0500 Respiratory rate 12 /min Pardeep Ball Other [facility] Other 09-18-2023 08:30-0500 Systolic blood pressure 131 mm[Hg] Pardeep Ball Other [facility] Other 05-17-2023 08:30-0400 Body height 172.72 cm Pardeep Ball Other [facility] Other 05-17-2023 08:30-0400 Body mass index (BMI) [Ratio] 27.43 kg/m2 Pardeep Ball Other [facility] Other 05-17-2023 08:30-0400 Body weight 81.83 kg Pardeep Ball Other [facility] Other 05-17-2023 08:30-0400 Diastolic blood pressure 102 mm[Hg] Pardeep Ball Other [facility] Other 05-17-2023 08:30-0400 Respiratory rate 12 /min Pardeep Ball Other [facility] Other 05-17-2023 08:30-0400 Systolic blood pressure 162 mm[Hg] Pardeep Ball Other [facility] Other 04-24-2023 13:47-0400 Blood Pressure Location Isidoro GAITAN [facility] 04-24-2023 13:47-0400 Body temperature 98.24 [degF] Isidoro GAITAN [facility] 04-24-2023 13:47-0400 Diastolic blood pressure 82 mm[Hg] Isidoro GAITAN [facility] 04-24-2023 13:47-0400 Heart rate 84 /min Isidoro GAITAN [facility] 04-24-2023 13:47-0400 Systolic blood pressure 118 mm[Hg] Isidoro GAITAN [facility] 09-12-2022 10:45-0500 Blood Pressure Location Isidoro GAITAN [facility] 09-12-2022 10:45-0500 Diastolic blood pressure 90 mm[Hg] Isidoro GAITAN [facility] 09-12-2022 10:45-0500 Heart rate 72 /min Isidoro GAITAN [facility] 09-12-2022 10:45-0500 Respiratory rate 16 /min Isidoro GAITAN [facility] 09-12-2022 10:45-0500 Systolic blood pressure 140 mm[Hg] Isidoro GAITAN [facility] 01-14-2022 09:33-0400 Blood Pressure Location Isidoro GAITAN [facility] 01-14-2022 09:33-0400 Diastolic blood pressure 74 mm[Hg] Isidoro GAITAN [facility] 01-14-2022 09:33-0400 Heart rate 61 /min Isidoro GAITAN [facility] 01-14-2022 09:33-0400 Respiratory rate 16 /min Isidoro GAITAN [facility] 01-14-2022 09:33-0400 Systolic blood pressure 121 mm[Hg] Isidoro GAITAN [facility] 12-20-2021 09:35-0400 Blood Pressure Location Isidoro GAITAN [facility] 12-20-2021 09:35-0400 Diastolic blood pressure 80 mm[Hg] Isidoro GAITAN [facility] 12-20-2021 09:35-0400 Heart rate 89 /min Isidoro GAITAN [facility] 12-20-2021 09:35-0400 Systolic blood pressure 120 mm[Hg] Isidoro GAITAN [facility] 12-17-2021 10:03-0400 Blood Pressure Location Isidoro GAITAN [facility] 12-17-2021 10:03-0400 Diastolic blood pressure 83 mm[Hg] Isidoro GAITAN [facility] 12-17-2021 10:03-0400 Heart rate 87 /min Isidoro GAITAN [facility] 12-17-2021 10:03-0400 Respiratory rate 16 /min Isidoro GAITAN [facility] 12-17-2021 10:03-0400 Systolic blood pressure 132 mm[Hg] [facility] 11-01-2021 12:49-0400 Blood Pressure Location Isidoro GAITAN [facility] 11-01-2021 12:49-0400 Diastolic blood pressure 83 mm[Hg] [email or web address] 11-01-2021 12:49-0400 Heart rate 85 /min Isidoro GAITAN [facility] 11-01-2021 12:49-0400 Respiratory rate 16 /min Isidoro GAITAN [facility] 11-01-2021 12:49-0400 Systolic blood pressure 118 mm[Hg] [email or web address] Encounters Encounter Date Encounter Type Care Provider Facility Start: 01-03-2025 ambulatory Isidoro GAITAN Facili ty:[facility] Start: 01-01-2024 End: 01-02-2024 ambulatory Isidoro GAITAN [facility] [facility] Start: 01-01-2024 End: 01-01-2024 Patient encounter procedure Isidoro GAITAN [facility] [employer] Start: 09-18-2023 End: 09-18-2023 ambulatory Pardeep Mclaughlin Other [employer] Other Start: 09-18-2023 Office outpatient vi sit 25 minutes Pardeep ZHANG [facility] Start: 08-18-2023 End: 08-18-2023 ambulatory Pardeep Mclaughlin Other [employer] Other Start: 08-18-2023 Telephone encounter Pardeep Vazquez [facility] Start: 07-31-2023 End: 07-31-2023 ambulatory Pardeep Mclaughlin Other [facility] Other Start: 07-31-2023 Telephone encounter Pardeep Vazquez [employer] Start: 06-26-2023 End: 06-26-2023 ambulatory Pardeep Mclaughlin Other [employer] Other Start: 06-26-2023 Telephone encounter Pardeep Mclaughlin YURIY Mclaughlin [facility] Start: 05-31-2023 End: 05-31-2023 ambulatory Pardeep Mclaughlin Other [employer] Other Start: 05-31-2023 Telephone encounter Pardeep Mclaughlin YURIY Mclaughlin [facility] Start: 05-17-2023 End: 05-17-2023 ambulatory Pardeep Mclaughlin Other [employer] Other Start: 05-17-2023 Patient encounter procedure Pardeep Mclaughlin LEATHA Mclaughlin [facility] Start: 04-24-2023 End: 04-25-2023 ambulatory Isidoro GAITAN Facility:[facility] Start: 04-24-2023 End: 04-24-2023 Patient encounter procedure Isidoro GAITAN [facility] Start: 09-12-2022 End: 09-12-2022 Patient encounter procedure Isidoro GAITAN [facility] Start: 09-08-2022 End: 09-09-[address] ISIDORO GAITAN . Facility:[facility] Start: 05-20-2022 Encounter for genera l adult medical examination without abnormal findings DR PARDEEP MCLAUGHLIN Start: 05-17-2022 End: 05-18-[address] PARDEEP MCLAUGHLIN Facility:[facility] Start: 05-17-2022 End: 05-18-2022 Encounter for general adult medical examination without abnormal findings DR PARDEEP MCLAUGHLIN Facility:[facility] Start: 05-05-2022 End: 05-06-[address] PARDEEP MCLAUGHLIN Facility:[facility] Start: 01-14-2022 End: 01-14-2022 Patient encounter procedure Isidoro GAITAN [facility] Start: 01-12-2022 End: 01-13-[address] ISIDORO GAITAN . Facility:[facility] Start: 12-20-2021 End: 12-20-2021 Patient encounter procedure Isidoro GAITAN [facility] Start: 12-17-2021 End: 12-17-2021 Patient encounter procedure Isidoro GAITAN [facility] Start: 12-15-2021 End: 12-15-2021 Patient encounter procedure Isidoro GAITAN [facility] Start: 12-10-2021 End: 12-11-2021 Evaluation and management of inpatient DR ISIDORO GAITAN . Facility:[facility] Start: 12-09-2021 Encounter for preprocedural laboratory examination DR ISIDORO GAITAN . [facility] Start: 12-07-2021 End: 12-08-[address] ISIDORO GAITAN . Facility:[facility] Start: 12-07-2021 End: 12-08-2021 Encounter for preprocedural laboratory examination DR ISIDORO GAITAN . Facility:[facility] Start: 12-02-2021 Encounter for preprocedural cardiovascular examination DR ISIDORO GAITAN . [facility] Start: 11-29-2021 End: 11-30-[address] ISIDORO GAITAN . Facility:[facility] Start: 11-01-2021 End: 11-01-2021 Patient encounter procedure Isidoro GAITAN [facility] Procedures Date Procedure Procedure Detail Performing Clinician Start: 09-08-[address] KP GAITAN . Comment on above: Performed By: #### P SAD #### [facility] [address] [place] [address] Dr. Herson Narvaez Start: 05-05-[address] KP GAITAN . Comment on above: Performed By: #### P SAD #### [facility] [address] [address] [address] Herson Narvaez Start: 01-12-[address] KP GAITAN . Comment on above: Performed By: #### B MP #### [facility] [address] [address] [address] Herson Narvaez Start: 12-10-2021 Resection of Pelvis Lymphatic, Open Approach DR ISDIORO GAITAN . Start: 12-10-2021 Resection of Prostat e, Open Approach DR ISIDORO GAITAN . Start: 12-10-2021 Radical prostatectomy P kike GAITAN Start: 10-19-2021 Transrectal biopsy o f prostate using ultrasound guidance Isidoro GAITAN Colonoscopy Isidoro GAITAN Immunizations Immunization Date Immunization Notes Care Provider Fa cili 06-30-2021 SARS-CoV-2 (COVID-19 ) Ad26 vaccine, recombinant Isidoro GAITAN [facility] 05-19-2021 SARS-CoV-2 (COVID-19 ) mRNA BNT-162b2 vax Isidoro GAITAN [facility] 2021 SARS-CoV-2 (COVID-19 ) mRNA BNT-162b2 vax Isidoro GAITAN [facility] Comment on above: Result Comment: Pt h ad 2 shots 04-28-2021 SARS-CoV-2 (COVID-19 ) mRNA BNT-162b2 vax Isidoro GAITAN [facility] NEGATED: Highlighted row has not occurred!12-20-2021 influenza virus vaccine, unspecified formulation Isidoro GAITAN [facility] Payers Date Payer Category Payer Unknown [id number] 1961 Unknown [id number] 1961 Unknown [id number] 1960 Unknown [id number] 2.16.84 [id number] 1958 Unknown [id number] 2.16.84 [id number] 1958 Unknown [id number] 2.16.84 [id number] 1958 Unknown [id number] 2.16.84 [id number] 1958 Unknown [id number] 2.16.84 [id number] 1958 Unknown [id number] 2.16.84 [id number] 1958 Unknown [id number] 2.16.84 [id number] 1958 Unknown [id number] 2.16.8 [id number] 1958 Unknown [id number] 2.16.8 [id number] 1958 Unknown [id number] 2.16.8 [id number] Social History Date Type Detail Facility Start: 11-01-2021 End: 04-24-2023 Tobacco smoking status Never smoked tobacco (finding) [facility] Sex Assigned At Male [facility] Tobacco smoking status Never [facility] Functional Status Date Assessment Result Facility 01-01-2024 Functional Status N/A [facility] 04-24-2023 Functional Status N/A [facility] 09-12-2022 Functional Status N/A [facility] Clinical Notes 11-01-2021 to 01-01-2024 Note Date & Type Note Facility 01-01-2024 Hospital Discharge instructions Patient Education 01/01/2024 11:20:08 Prostate Cancer Screening Prostate Cancer Screening Prostate cancer screening is testing that is done to check for the presence of prostate cancer in men. The prostate gland is a walnut-sized gland that is located below the bladder and in front of the rectum in males. The function of the prostate is to add fluid to semen during ejaculation. Prostate cancer is one of the most common types of cancer in men. Who should have prostate cancer screening? Screening recommendations vary based on age and other risk factors, as well as between the professional organizations who make the recommendations. In general, screening is recommended if: You are age 50 to 70 and have an average risk for prostate cancer. You should talk with your health care provider about your need for screening and how often screening should be done. Because most prostate cancers are slow growing and will not cause , screening in this age group is generally reserved for men who have a 10- to 15-year life expectancy. You are younger than age 50, and you have these risk factors: ?Having a father, brother, or uncle who has been diagnosed with prostate cancer. The risk is higher if your family member's cancer occurred at an early age or if you have multiple family members with prostate cancer at an early age. ?Being a male who is Black or is of Gene or sub-Saharan descent. In general, screening is not recommended if: You are younger than age 40. You are between the ages of 40 and 49 and you have no risk factors. You are 70 years of age or older. At this age, the risks that screening can cause are greater than the benefits that it may provide. If you are at high risk for prostate cancer, your health care provider may recommend that you have screenings more often or that you start screening at a younger age. How is screening for prostate cancer done? The recommended prostate cancer screening test is a blood test called the prostate-specific antigen (PSA) test. PSA is a protein that is made in the prostate. As you age, your prostate naturally produces more PSA. Abnormally high PSA levels may be caused by: Prostate cancer. An enlarged prostate that is not caused by cancer (benign prostatic hyperplasia, or BPH). This condition is very common in older men. A prostate gland infection (prostatitis) or urinary tract infection. Certain medicines such as male hormones (like testosterone) or other medicines that raise testosterone levels. A rectal exam may be done as part of prostate cancer screening to help provide information about the size of your prostate gland. When a rectal exam is performed, it should be done after the PSA level is drawn to avoid any effect on the results. Depending on the PSA results, you may need more tests, such as: A physical exam to check the size of your prostate gland, if not done as part of screening. Blood and imaging tests. A procedure to remove tissue samples from your prostate gland for testing (biopsy). This is the only way to know for certain if you have prostate cancer. What are the benefits of prostate cancer screening? Screening can help to identify cancer at an early stage, before symptoms start and when the cancer can be treated more easily. There is a small chance that screening may lower your risk of dying from prostate cancer. The chance is small because prostate cancer is a slow-growing cancer, and most men with prostate cancer from a different cause. What are the risks of prostate cancer screening? The main risk of prostate cancer screening is diagnosing and treating prostate cancer that would never have caused any symptoms or problems. This is called overdiagnosisand overtreatment. PSA screening cannot tell you if your PSA is high due to cancer or a different cause. A prostate biopsy is the only procedure to diagnose prostate cancer. Even the results of a biopsy may not tell you if your cancer needs to be treated. Slow-growing prostate cancer may not need any treatment other than monitoring, so diagnosing and treating it may cause unnecessary stress or other side effects. Questions to ask your health care provider When should I start prostate cancer screening? What is my risk for prostate cancer? How often do I need screening? What type of screening tests do I need? How do I get my test results? What do my results mean? Do I need treatment? Where to find more information The [place] [employer]: www.cancer.org [place] [employer]: www.auanet.org Contact a health care provider if: You have difficulty urinating. You have pain when you urinate or ejaculate. You have blood in your urine or semen. You have pain in your back or in the area of your prostate. Summary Prostate cancer is a common type of cancer in men. The prostate gland is located below the bladder and in front of the rectum. This gland adds fluid to semen during ejaculation. Prostate cancer screening may identify cancer at an early stage, when the cancer can be treated more easily and is less likely to have spread to other areas of the body. The prostate-specific antigen (PSA) test is the recommended screening test for prostate cancer, but it has associated risks. Discuss the risks and benefits of prostate cancer screening with your health care provider. If you are age 70 or older, the risks that screening can cause are greater than the benefits that it may provide. This information is not intended to replace advice given to you by your health care provider. Make sure you discuss any questions you have with your health care provider. Document Revised: 01/24/2022 Document Reviewed: 01/24/2022 [employer] Patient Education 2022 [employer]. Follow Up Care 04/24/2023 15:19:29 With:TRA NAGEL, Isidoro Deshpande, URL Address: [facility] [address], [place] [address]- [phone] When: Unknown Comments:1 yr w/ PSA [facility] 09-18-2023 Evaluation note Encounter Date Diagnosis Assessment Notes Sep, Elevated cholesterol (ICD-10 - E78.00) Instructed on diet and exercise.Discusse d the beneficial effects of lowering cholesterol in reducing the risk for cerebrovascular and cardiovascular disease. Sep, Primary hypertension (ICD-10 - I10) This patient is instructed to consume a healthy, low-fat, low-salt diet. They are also encouraged to continue exercise to achieve/maintain a normal BMI. Patient is instructed on home BP measurements: - rest for 5 minutes w/o talking.- positioned w/ feet on floor and arm supported.- average best 2/3 readings w/ goal < 135/85.- update office w/ home readings in 2 weeks. Sep, HERI (generalized anxiety disorder) (ICD-10 - F41.1) Healthy diet, exercise and keep active. No medical therapy necessary. Seek activities for enjoyment and relaxation Sep, Prostate cancer (ICD-10 - C61) PSA suppressed s/p radical prostatectomy No s/s recurrence f/u Urology Sep, Dysfunction of left eustachian tube (ICD-10 - H69.92) Valsalva maneuver as well as Flonase NS. He cancelled his appt w/ ENT for audiogram and evaluation. Recommend initiating Flonase and continuing valsalva. Sep, Adenomatous polyp of descending colon (ICD-10 - D12.4) Continue surveillance scopes. He is due for screening colonoscopy 11/2023. He is due for screening colonoscopy in November,He denies change in appetite, weight or bowel habitsHe denies heartburn, dysphagia, melena or hematochezia. Sep, Screening for colon cancer (ICD-10 - Z12.11) Referral sent to schedule colonoscopy [facility] Other 11-13-2023 Evaluation note* Encounter Date Diagnosis Assessment Notes Treatment Notes Treatment Clinical Notes Jun, Primary hypertension (ICD-10 - I10) [employer] Other 10-18-2023 Evaluation note* Encounter Date Diagnosis Assessment Notes Treatment Notes Treatment Clinical Notes May, Primary hypertension (ICD-10 - I10) [facility] Other 10-04-2023 Evaluation note* Encounter Date Diagnosis Assessment Notes Treatment Notes Treatment Clinical Notes May, Medicare annual wellness visit, initial (ICD-10 - Z00.00) Personalized health advice was given to the beneficiary including a written plan for screenings discussed and provided. Advanced care planning reviewed and/or information given as requested. Additional counseling was provided here today in regards to, [ ]. The above visit was performed by [ ], under direct supervision of [ ]. Document reviewed and amended by provider signed below. May, Elevated BP without diagnosis of hypertension (ICD-10 - R03.0) This patient is instructed to consume a healthy, low-fat, low-salt diet. They are also encouraged to continue exercise to achieve/maintain a normal BMI. Patient is instructed on home BP measurements: - rest for 5 minutes w/o talking- positioned w/ feet on floor and arm supported- average best 2/3 readings w/ goal < 135/85 _update office in couple weeks May, Elevated cholesterol (ICD-10 - E78.00) Instructed on diet and exerciseDiscussed the beneficial effects of lowering cholesterol in reducing the risk for cerebrovascular and cardiovascular disease. May, HERI (generalized anxiety disorder) (ICD-10 - F41.1) Healthy diet and exercise, keep active May, Prostate cancer (ICD-10 - C61) Suppressed PSA No s/s recurrence f/u May, Dysfunction of left eustachian tube (ICD-10 - H69.92) Valsalva Antihistamine/deconges tant if develop nasal obstruction or rhinorrhea Refer for Audiogram and ENT [facility] Other 09-11-2023 Hospital Discharge instructions Patient Education 04/24/2023 15:07:13 Prostate Cancer Prostate Cancer The prostate is a small gland that produces fluid that makes up semen (seminal fluid). It is located below the bladder in men, in front of the rectum. Prostate cancer is the abnormal growth of cells in the prostate gland. What are the causes? The exact cause of this condition is not known. What increases the risk? You are more likely to develop this condition if: You are 65 years of age or older. You have a family history of prostate cancer. You have a family history of breast and ovarian cancer. You have genes that are passed from parent to child (inherited), such as BRCA1 and BRCA2. You have Narvaez syndrome. men and men of descent are diagnosed with prostate cancer at higher rates than other men. The reasons for this are not well understood and are likely due to a combination of genetic and environmental factors. What are the signs or symptoms? Symptoms of this condition include: Problems with urination. This may include: ?A weak or interrupted flow of urine. ?Trouble starting or stopping urination. ?Trouble emptying the bladder all the way. ?The need to urinate more often, especially at night. Blood in urine or semen. Persistent pain or discomfort in the lower back, lower abdomen, or hips. Trouble getting an erection. Weakness or numbness in the legs or feet. How is this diagnosed? This condition can be diagnosed with: A digital rectal exam. For this exam, a health care provider inserts a gloved finger into the rectum to feel the prostate gland. A blood test called a prostate-specific antigen (PSA) test. A procedure in which a sample of tissue is taken from the prostate and checked under a microscope (prostate biopsy). An imaging test called transrectal ultrasonography. Once the condition is diagnosed, tests will be done to determine how far the cancer has spread. This is called staging the cancer. Staging may involve imaging tests, such as a bone scan, CT scan, PETscan, or MRI. Stages of prostate cancer The stages of prostate cancer are as follows: Stage 1 (I). At this stage, the cancer is found in the prostate only. The cancer is not visible on imaging tests, and it is usually found by accident, such as during prostate surgery. Stage 2 (II). At this stage, the cancer is more advanced than it is in stage 1, but the cancer has not spread outside the prostate. Stage 3 (III). At this stage, the cancer has spread beyond the outer layer of the prostate to nearby tissues. The cancer may be found in the seminal vesicles, which are near the bladder and the prostate. Stage 4 (IV). At this stage, the cancer has spread to other parts of the body, such as the lymph nodes, bones, bladder, rectum, liver, or lungs. Prostate cancer grading Prostate cancer is also graded according to how the cancer cells look under a microscope. This is called the [place] score and the total score can range from 6 10, indicating how likely it is that the cancer will spread (metastasize) to other parts of the body. The higher the score, the greater thelikelihood that the cancer will spread. Marti 6 or lower: This indicates that the cancer cells look similar to normal prostate cells (well differentiated). Marti 7: This indicates that the cancer cells look somewhat similar to normal prostate cells (moderately differentiated). Marti 8, 9, or 10: This indicates that the cancer cells look very different than normal prostate cells (poorly differentiated). How is this treated? Treatment for this condition depends on several factors, including the stage of the cancer, your age, personal preferences, and your overall health. Talk with your health care provider about treatment options that are recommended for you. Common treatments include: Observation for early stage prostate cancer (active surveillance). This involves having exams, blood tests, and in some cases, more biopsies. For some men, this is the only treatment needed. Surgery. Types of surgeries include: ?Open surgery (radical prostatectomy). In this surgery, a larger incision is made to remove the prostate. ?A laparoscopic radical prostatectomy. This is a surgery to remove the prostate and lymph nodes through several small incisions. It is often referred to as a minimally invasive surgery. ?A robotic radical prostatectomy. This is laparoscopic surgery to remove the prostate and lymph nodes with the help of robotic arms that are controlled by the surgeon. ?Cryoablation. This is surgery to freeze and destroy cancer cells. Radiation treatment. Types of radiation treatment include: ?External beam radiation. This type aims beams of radiation from outside the body at the prostate to destroy cancerous cells. ?Brachytherapy. This type uses radioactive needles, seeds, wires, or tubes that are implanted into the prostate gland. Like external beam radiation, brachytherapy destroys cancerous cells. An advantage is that this type of radiation limits the damage to surrounding tissue and has fewer side effects. Chemotherapy. This treatment kills cancer cells or stops them from multiplying. It kills both cancer cells and normal cells. Targeted therapy. This treatment uses medicines to kill cancer cells without damaging normal cells. Hormone treatment. This treatment involves taking medicines that act on testosterone, one of the male hormones, by: ?Stopping your body from producing testosterone. ?Blocking testosterone from reaching cancer cells. Follow these instructions at home: Lifestyle Do not use any products that contain nicotine or tobacco. These products include cigarettes, chewing tobacco, and vaping devices, such as e-cigarettes. If you need help quitting, ask your health careprovider. Eat a healthy diet. To do this: ?Eat foods that are high in fiber. These include beans, whole grains, and fresh fruits and vegetables. ?Limit foods that are high in fat and sugar. These include fried or sweet foods. Treatment for prostate cancer may affect sexual function. If you have a partner, continue to have intimate moments. This may include touching, holding, hugging, and caressing your partner. Get plenty of sleep. Consider joining a support group for men who have prostate cancer. Meeting with a support group mayhelp you learn to manage the stress of having cancer. General instructions Take [id number] and prescription medicines only as told by your health care provider. If you have to go to the hospital, notify your cancer specialist (oncologist). Keep all follow-up visits. This is important. Where to find more information [place] [employer]: www.cancer.org [place] [employer] On[employer]: www.cancer.net [employer] Cancer [place]: www.cancer.gov Contact a health care provider if: You have new or increasing trouble urinating. You have new or increasing blood in your urine. You have new or increasing pain in your hips, back, or chest. Get help right away if: You have weakness or numbness in your legs. You cannot control urination or your bowel movements (incontinence). You have chills or a fever. Summary The prostate is a small gland that is involved in the production of semen. It is located below a man's bladder, in front of the rectum. Prostate cancer is the abnormal growth of cells in the prostate gland. Treatment for this condition depends on the stage of the cancer, your age, personal preferences, and your overall health. Talk with your health care provider about treatment options that are recommended for you. Consider joining a support group for men who have prostate cancer. Meeting with a support group mayhelp you learn to manage the stress of having cancer. This information is not intended to replace advice given to you by your health care provider. Make sure you discuss any questions you have with your health care provider. Document Revised: 10/27/2021 Document Reviewed: 10/27/2021 [employer] Patient Education 2022 [employer]. Follow Up Care 09/12/2022 11:45:29 With:TRA NAGEL, Isidoro Deshpande, URL Address: [facility] [address] , [place] [address]- [phone] When:Within 6 Month(s) Comments:PSA [facility] 01-30-2023 Hospital Discharge instructions Patient Education 09/12/2022 11:24:47 [employer] Exercises Kegel Exercises Kegel exercises can help strengthen your pelvic floor muscles. The pelvic floor is a group of muscles that support your rectum, small intestine, and bladder. In females, pelvic floor muscles also help support the womb (uterus). These muscles help you control the flow of urine and stool. Kegel exercises are painless and simple, and they do not require any equipment. Your provider may suggest Kegel exercises to: Improve bladder and bowel control. Improve sexual response. Improve weak pelvic floor muscles after surgery to remove the uterus (hysterectomy) or (females). Improve weak pelvic floor muscles after prostate gland removal or surgery (males). Kegel exercises involve squeezing your pelvic floor muscles, which are the same muscles you squeezewhen you try to stop the flow of urine or keep from passing gas. The exercises can be done while sitting, standing, or lying down, but it is best to vary your position. Exercises How to do Kegel exercises: 1.Squeeze your pelvic floor muscles tight. You should feel a tight lift in your rectal area. If youare a female, you should also feel a tightness in your vaginal area. Keep your stomach, buttocks, and legs relaxed. 2.Hold the muscles tight for up to 10 seconds. 3.Breathe normally. 4.Relax your muscles. 5.Repeat as told by your health care provider. Repeat this exercise daily as told by your health care provider. Continue to do this exercise for at least 4 6 weeks, or for as long as told by your health care provider. You may be referred to a physical therapist who can help you learn more about how to do Kegel exercises. Depending on your condition, your health care provider may recommend: Varying how long you squeeze your muscles. Doing several sets of exercises every day. Doing exercises for several weeks. Making Kegel exercises a part of your regular exercise routine. This information is not intended to replace advice given to you by your health care provider. Make sure you discuss any questions you have with your health care provider. Document Released: 07/17/2013 Document Revised: 03/20/2019 Document Reviewed: 03/20/2019 [employer] Patient Education 2020 [employer]. Follow Up Care 05/30/2022 11:17:27 With:TRA NAGEL, Isidoro Deshpande, URL Address: [facility] [address], [place] [address]- When: Unknown [facility] 06-03-2022 Hospital Discharge instructions Patient Education 01/14/2022 09:41:08 Prostate Cancer, Qowu-iq-Rqvw Prostate Cancer The prostate is a male gland that helps make semen. Prostate cancer is when abnormal cells grow in this gland. Follow these instructions at home: Take pnxn-tsl-mbzgvov and prescription medicines only as told by your doctor. Eat a healthy diet. Get plenty of sleep. Ask your doctor for help to find a support group for men with prostate cancer. Keep all follow-up visits as told by your doctor. This is important. If you have to go to the hospital, let your cancer doctor (oncologist) know. Touch, hold, hug, and caress your partner to continue to show sexual feelings. Contact a doctor if: You have trouble peeing (urinating). You have blood in your pee (urine). You have pain in your hips, back, or chest. Get help right away if: You have weakness in your legs. You lose feeling (have numbness) in your legs. You cannot control your pee or your poop (stool). You have trouble breathing. You have sudden pain in your chest. You have chills or a fever. Summary The prostate is a male gland that helps make semen. Prostate cancer is when abnormal cells grow in this gland. Ask your doctor for help to find a support group for men with prostate cancer. Contact a doctor if you have problems peeing or have any new pain that you did not have before. This information is not intended to replace advice given to you by your health care provider. Make sure you discuss any questions you have with your health care provider. Document Released: 07/19/2010 Document Revised: 07/13/2018 Document Reviewed: 04/10/2017 [employer] Patient Education 2019 [employer]. Follow Up Care 12/20/2021 10:34:40 With:TRA NAGEL, Isidoro Deshpande, URL Address: [facility] [address] , [place] [address]- When: Unknown [facility] [place] 05-09-2022 Hospital Discharge instructions Patient Education 12/20/2021 08:06:57 Prostate Cancer, Geya-vm-Hfkk Prostate Cancer The prostate is a male gland that helps make semen. Prostate cancer is when abnormal cells grow in this gland. Follow these instructions at home: Take wajn-oeh-fkpzwzw and prescription medicines only as told by your doctor. Eat a healthy diet. Get plenty of sleep. Ask your doctor for help to find a support group for men with prostate cancer. Keep all follow-up visits as told by your doctor. This is important. If you have to go to the hospital, let your cancer doctor (oncologist) know. Touch, hold, hug, and caress your partner to continue to show sexual feelings. Contact a doctor if: You have trouble peeing (urinating). You have blood in your pee (urine). You have pain in your hips, back, or chest. Get help right away if: You have weakness in your legs. You lose feeling (have numbness) in your legs. You cannot control your pee or your poop (stool). You have trouble breathing. You have sudden pain in your chest. You have chills or a fever. Summary The prostate is a male gland that helps make semen. Prostate cancer is when abnormal cells grow in this gland. Ask your doctor for help to find a support group for men with prostate cancer. Contact a doctor if you have problems peeing or have any new pain that you did not have before. This information is not intended to replace advice given to you by your health care provider. Make sure you discuss any questions you have with your health care provider. Document Released: 07/19/2010 Document Revised: 07/13/2018 Document Reviewed: 04/10/2017 [employer] Patient Education 2020 [employer]. Follow Up Care 12/17/2021 11:19:32 With:TRA NAGEL, Isidoro Deshpande, URL Address: [facility] [address] , [place] [address]- When: Unknown [facility] 05-06-2022 Hospital Discharge instructions Patient Education 12/17/2021 07:59:25 Prostate Cancer Prostate Cancer The prostate is a walnut-sized gland that is involved in the production of semen. It is located below a man's bladder, in front of the rectum. Prostate cancer is the abnormal growth of cells in the prostate gland. What are the causes? The exact cause of this condition is not known. What increases the risk? This condition is more likely to develop in men who: Are older than age 65. Are -[place]. Are obese. Have a family history of prostate cancer. Have a family history of breast cancer. What are the signs or symptoms? Symptoms of this condition include: A need to urinate often. Weak or interrupted flow of urine. Trouble starting or stopping urination. Inability to urinate. Pain or burning during urination. Painful ejaculation. Blood in urine or semen. Persistent pain or discomfort in the lower back, lower abdomen, hips, or upper thighs. Trouble getting an erection. Trouble emptying the bladder all the way. How is this diagnosed? This condition can be diagnosed with: A digital rectal exam. For this exam, a health care provider inserts a gloved finger into the rectum to feel the prostate gland. A blood test called a prostate-specific antigen (PSA) test. An imaging test called transrectal ultrasonography. A procedure in which a sample of tissue is taken from the prostate and examined under a microscope (prostate biopsy). Once the condition is diagnosed, tests will be done to determine how far the cancer has spread. This is called staging the cancer. Staging may involve imaging tests, such as: A bone scan. A CT scan. A PET scan. An MRI. The stages of prostate cancer are as follows: Stage I. At this stage, the cancer is found in the prostate only. The cancer is not visible on imaging tests and it is usually found by accident, such as during a prostate surgery. Stage II. At this stage, the cancer is more advanced than it is in stage I, but the cancer has not spread outside the prostate. Stage III. At this stage, the cancer has spread beyond the outer layer of the prostate to nearby tissues. The cancer may be found in the seminal vesicles, which are near the bladder and the prostate. Stage IV. At this stage, the cancer has spread other parts of the body, such as the lymph nodes, bones, bladder, rectum, liver, or lungs. How is this treated? Treatment for this condition depends on several factors, including the stage of the cancer, your age, personal preferences, and your overall health. Talk with your health care provider about treatment options that are recommended for you. Common treatments include: Observation for early stage prostate cancer (active surveillance). This involves having exams, blood tests, and in some cases, more biopsies. For some men, this is the only treatment needed. Surgery. Types of surgeries include: ?Open surgery. In this surgery, a larger incision is made to remove the prostate. ?A laparoscopic prostatectomy. This is a surgery to remove the prostate and lymph nodes through several, small incisions. It is often referred to as a minimally invasive surgery. ?A robotic prostatectomy. This is a surgery to remove the prostate and lymph nodes with the help ofa robotic arm that is controlled by a computer. ?Orchiectomy. This is a surgery to remove the testicles. ?Cryosurgery. This is a surgery to freeze and destroy cancer cells. Radiation treatment. Types of radiation treatment include: ?External beam radiation. This type aims beams of radiation from outside the body at the prostate to destroy cancerous cells. ?Brachytherapy. This type uses radioactive needles, seeds, wires, or tubes that are implanted into the prostate gland. Like external beam radiation, brachytherapy destroys cancerous cells. An advantage is that this type of radiation limits the damage to surrounding tissue and has fewer side effects. High-intensity, focused ultrasonography. This treatment destroys cancer cells by delivering high-energy ultrasound waves to the cancerous cells. Chemotherapy medicines. This treatment kills cancer cells or stops them from multiplying. Hormone treatment. This treatment involves taking medicines that act on one of the male hormones (testosterone): ?By stopping your body from producing testosterone. ?By blocking testosterone from reaching cancer cells. Follow these instructions at home: Take fqpm-svt-ccvlpfo and prescription medicines only as told by your health care provider. Maintain a healthy diet. Get plenty of sleep. Consider joining a support group for men who have prostate cancer. Meeting with a support group mayhelp you learn to cope with the stress of having cancer. Keep all follow-up visits as told by your health care provider. This is important. If you have to go to the hospital, notify your cancer specialist (oncologist). Treatment for prostate cancer may affect sexual function. Continue to have intimate moments with your partner. This may include touching, holding, hugging, and caressing. Contact a health care provider if: You have trouble urinating. You have blood in your urine. You have pain in your hips, back, or chest. Get help right away if: You have weakness or numbness in your legs. You cannot control urination or your bowel movements (incontinence). You have trouble breathing. You have sudden chest pain. You have chills or a fever. Summary The prostate is a walnut-sized gland that is involved in the production of semen. It is located below a man's bladder, in front of the rectum. Prostate cancer is the abnormal growth of cells in the prostate gland. Treatment for this condition depends on several factors, including the stage of the cancer, your age, personal preferences, and your overall health. Talk with your health care provider about treatment options that are recommended for you. Consider joining a support group for men who have prostate cancer. Meeting with a support group mayhelp you learn to cope with the stress of having cancer. This information is not intended to replace advice given to you by your health care provider. Make sure you discuss any questions you have with your health care provider. Document Released: 07/31/2006 Document Revised: 07/13/2018 Document Reviewed: 04/10/2017 [employer] Patient Education 2020 [employer]. Follow Up Care 12/15/2021 13:23:32 With:TRA NAGEL, Isidoro Deshpande, URL Address: [facility] [address] [place] [address]- [phone] When:3 to 4 days Comments:Dr. Gaitan to take out catheter [facility] [place] 05-04-2022 Hospital Discharge instructions Patient Education 12/15/2021 13:29:27 Prostate Cancer Prostate Cancer The prostate is a walnut-sized gland that is involved in the production of semen. It is located below a man's bladder, in front of the rectum. Prostate cancer is the abnormal growth of cells in the prostate gland. What are the causes? The exact cause of this condition is not known. What increases the risk? This condition is more likely to develop in men who: Are older than age 65. Are -[place]. Are obese. Have a family history of prostate cancer. Have a family history of breast cancer. What are the signs or symptoms? Symptoms of this condition include: A need to urinate often. Weak or interrupted flow of urine. Trouble starting or stopping urination. Inability to urinate. Pain or burning during urination. Painful ejaculation. Blood in urine or semen. Persistent pain or discomfort in the lower back, lower abdomen, hips, or upper thighs. Trouble getting an erection. Trouble emptying the bladder all the way. How is this diagnosed? This condition can be diagnosed with: A digital rectal exam. For this exam, a health care provider inserts a gloved finger into the rectum to feel the prostate gland. A blood test called a prostate-specific antigen (PSA) test. An imaging test called transrectal ultrasonography. A procedure in which a sample of tissue is taken from the prostate and examined under a microscope (prostate biopsy). Once the condition is diagnosed, tests will be done to determine how far the cancer has spread. This is called staging the cancer. Staging may involve imaging tests, such as: A bone scan. A CT scan. A PET scan. An MRI. The stages of prostate cancer are as follows: Stage I. At this stage, the cancer is found in the prostate only. The cancer is not visible on imaging tests and it is usually found by accident, such as during a prostate surgery. Stage II. At this stage, the cancer is more advanced than it is in stage I, but the cancer has not spread outside the prostate. Stage III. At this stage, the cancer has spread beyond the outer layer of the prostate to nearby tissues. The cancer may be found in the seminal vesicles, which are near the bladder and the prostate. Stage IV. At this stage, the cancer has spread other parts of the body, such as the lymph nodes, bones, bladder, rectum, liver, or lungs. How is this treated? Treatment for this condition depends on several factors, including the stage of the cancer, your age, personal preferences, and your overall health. Talk with your health care provider about treatment options that are recommended for you. Common treatments include: Observation for early stage prostate cancer (active surveillance). This involves having exams, blood tests, and in some cases, more biopsies. For some men, this is the only treatment needed. Surgery. Types of surgeries include: ?Open surgery. In this surgery, a larger incision is made to remove the prostate. ?A laparoscopic prostatectomy. This is a surgery to remove the prostate and lymph nodes through several, small incisions. It is often referred to as a minimally invasive surgery. ?A robotic prostatectomy. This is a surgery to remove the prostate and lymph nodes with the help ofa robotic arm that is controlled by a computer. ?Orchiectomy. This is a surgery to remove the testicles. ?Cryosurgery. This is a surgery to freeze and destroy cancer cells. Radiation treatment. Types of radiation treatment include: ?External beam radiation. This type aims beams of radiation from outside the body at the prostate to destroy cancerous cells. ?Brachytherapy. This type uses radioactive needles, seeds, wires, or tubes that are implanted into the prostate gland. Like external beam radiation, brachytherapy destroys cancerous cells. An advantage is that this type of radiation limits the damage to surrounding tissue and has fewer side effects. High-intensity, focused ultrasonography. This treatment destroys cancer cells by delivering high-energy ultrasound waves to the cancerous cells. Chemotherapy medicines. This treatment kills cancer cells or stops them from multiplying. Hormone treatment. This treatment involves taking medicines that act on one of the male hormones (testosterone): ?By stopping your body from producing testosterone. ?By blocking testosterone from reaching cancer cells. Follow these instructions at home: Take egfm-nru-nahqjzq and prescription medicines only as told by your health care provider. Maintain a healthy diet. Get plenty of sleep. Consider joining a support group for men who have prostate cancer. Meeting with a support group mayhelp you learn to cope with the stress of having cancer. Keep all follow-up visits as told by your health care provider. This is important. If you have to go to the hospital, notify your cancer specialist (oncologist). Treatment for prostate cancer may affect sexual function. Continue to have intimate moments with your partner. This may include touching, holding, hugging, and caressing. Contact a health care provider if: You have trouble urinating. You have blood in your urine. You have pain in your hips, back, or chest. Get help right away if: You have weakness or numbness in your legs. You cannot control urination or your bowel movements (incontinence). You have trouble breathing. You have sudden chest pain. You have chills or a fever. Summary The prostate is a walnut-sized gland that is involved in the production of semen. It is located below a man's bladder, in front of the rectum. Prostate cancer is the abnormal growth of cells in the prostate gland. Treatment for this condition depends on several factors, including the stage of the cancer, your age, personal preferences, and your overall health. Talk with your health care provider about treatment options that are recommended for you. Consider joining a support group for men who have prostate cancer. Meeting with a support group mayhelp you learn to cope with the stress of having cancer. This information is not intended to replace advice given to you by your health care provider. Make sure you discuss any questions you have with your health care provider. Document Released: 07/31/2006 Document Revised: 07/13/2018 Document Reviewed: 04/10/2017 [employer] Patient Education 2020 [employer]. 12/15/2021 13:16:04 Prostate Cancer Prostate Cancer The prostate is a walnut-sized gland that is involved in the production of semen. It is located below a man's bladder, in front of the rectum. Prostate cancer is the abnormal growth of cells in the prostate gland. What are the causes? The exact cause of this condition is not known. What increases the risk? This condition is more likely to develop in men who: Are older than age 65. Are -[place]. Are obese. Have a family history of prostate cancer. Have a family history of breast cancer. What are the signs or symptoms? Symptoms of this condition include: A need to urinate often. Weak or interrupted flow of urine. Trouble starting or stopping urination. Inability to urinate. Pain or burning during urination. Painful ejaculation. Blood in urine or semen. Persistent pain or discomfort in the lower back, lower abdomen, hips, or upper thighs. Trouble getting an erection. Trouble emptying the bladder all the way. How is this diagnosed? This condition can be diagnosed with: A digital rectal exam. For this exam, a health care provider inserts a gloved finger into the rectum to feel the prostate gland. A blood test called a prostate-specific antigen (PSA) test. An imaging test called transrectal ultrasonography. A procedure in which a sample of tissue is taken from the prostate and examined under a microscope (prostate biopsy). Once the condition is diagnosed, tests will be done to determine how far the cancer has spread. This is called staging the cancer. Staging may involve imaging tests, such as: A bone scan. A CT scan. A PET scan. An MRI. The stages of prostate cancer are as follows: Stage I. At this stage, the cancer is found in the prostate only. The cancer is not visible on imaging tests and it is usually found by accident, such as during a prostate surgery. Stage II. At this stage, the cancer is more advanced than it is in stage I, but the cancer has not spread outside the prostate. Stage III. At this stage, the cancer has spread beyond the outer layer of the prostate to nearby tissues. The cancer may be found in the seminal vesicles, which are near the bladder and the prostate. Stage IV. At this stage, the cancer has spread other parts of the body, such as the lymph nodes, bones, bladder, rectum, liver, or lungs. How is this treated? Treatment for this condition depends on several factors, including the stage of the cancer, your age, personal preferences, and your overall health. Talk with your health care provider about treatment options that are recommended for you. Common treatments include: Observation for early stage prostate cancer (active surveillance). This involves having exams, blood tests, and in some cases, more biopsies. For some men, this is the only treatment needed. Surgery. Types of surgeries include: ?Open surgery. In this surgery, a larger incision is made to remove the prostate. ?A laparoscopic prostatectomy. This is a surgery to remove the prostate and lymph nodes through several, small incisions. It is often referred to as a minimally invasive surgery. ?A robotic prostatectomy. This is a surgery to remove the prostate and lymph nodes with the help ofa robotic arm that is controlled by a computer. ?Orchiectomy. This is a surgery to remove the testicles. ?Cryosurgery. This is a surgery to freeze and destroy cancer cells. Radiation treatment. Types of radiation treatment include: ?External beam radiation. This type aims beams of radiation from outside the body at the prostate to destroy cancerous cells. ?Brachytherapy. This type uses radioactive needles, seeds, wires, or tubes that are implanted into the prostate gland. Like external beam radiation, brachytherapy destroys cancerous cells. An advantage is that this type of radiation limits the damage to surrounding tissue and has fewer side effects. High-intensity, focused ultrasonography. This treatment destroys cancer cells by delivering high-energy ultrasound waves to the cancerous cells. Chemotherapy medicines. This treatment kills cancer cells or stops them from multiplying. Hormone treatment. This treatment involves taking medicines that act on one of the male hormones (testosterone): ?By stopping your body from producing testosterone. ?By blocking testosterone from reaching cancer cells. Follow these instructions at home: Take svzk-ljm-xsiajlb and prescription medicines only as told by your health care provider. Maintain a healthy diet. Get plenty of sleep. Consider joining a support group for men who have prostate cancer. Meeting with a support group mayhelp you learn to cope with the stress of having cancer. Keep all follow-up visits as told by your health care provider. This is important. If you have to go to the hospital, notify your cancer specialist (oncologist). Treatment for prostate cancer may affect sexual function. Continue to have intimate moments with your partner. This may include touching, holding, hugging, and caressing. Contact a health care provider if: You have trouble urinating. You have blood in your urine. You have pain in your hips, back, or chest. Get help right away if: You have weakness or numbness in your legs. You cannot control urination or your bowel movements (incontinence). You have trouble breathing. You have sudden chest pain. You have chills or a fever. Summary The prostate is a walnut-sized gland that is involved in the production of semen. It is located below a man's bladder, in front of the rectum. Prostate cancer is the abnormal growth of cells in the prostate gland. Treatment for this condition depends on several factors, including the stage of the cancer, your age, personal preferences, and your overall health. Talk with your health care provider about treatment options that are recommended for you. Consider joining a support group for men who have prostate cancer. Meeting with a support group mayhelp you learn to cope with the stress of having cancer. This information is not intended to replace advice given to you by your health care provider. Make sure you discuss any questions you have with your health care provider. Document Released: 07/31/2006 Document Revised: 07/13/2018 Document Reviewed: 04/10/2017 [employer] Patient Education 2020 [employer]. Follow Up Care 12/14/2021 15:41:04 With:TRA NAGEL, Isidoro Deshpande, URL Address: [facility] [address] , [place] [address]- Business (1) When: Unknown [facility] [place] [facility] 04-01-2022 History general Narrative - Reported* Type Description Date Medical History HERI (generalized anxiety disorde r) Medical History Prostate cancer Medical History Elevated cholesterol Surgical History Colonoscopy (repeat 5 years ) 2 019 Surgical History Radical prostatectomy 11/2021 Hospitalization History SEE SURGICAL HX [employer] Other 03-21-2022 Hospital Discharge instructions Patient Education 11/01/2021 13:15:29 Laparoscopic Prostatectomy Laparoscopic Prostatectomy Laparoscopic prostatectomy is a surgery to remove the entire prostate gland and seminal vesicles. The surgery is performed using a thin, pencil-sized instrument (laparoscope) with a light and camera on the end to help the surgeon see inside the abdomen. This surgery may be done to treat prostate cancer or an enlarged prostate gland (benign prostatic hyperplasia). Laparoscopic prostatectomy is less invasive than other types of surgeries for removing the prostategland. During this procedure, 4 5 small incisions are made in the abdomen. The laparoscope and other surgical instruments are placed through the incisions and the prostate gland is removed. Tell a health care provider about: Any allergies you have. All medicines you are taking, including vitamins, herbs, eye drops, creams, and iqwy-han-omykcub medicines. Any problems you or family members have had with anesthetic medicines. Any blood disorders you have. Any surgeries you have had. Any medical conditions you have. What are the risks? Generally, this is a safe procedure. However, problems may occur, including: Infection. Bleeding and the risk that you may require donated blood (transfusion). Allergic reactions to medicines. Damage to other structures or organs, such as the rectum, bladder, or small bowel. Blockage in the intestines or bowel. Scarring (stricture) that causes problems with the flow of urine. Inability to control when you urinate (incontinence). Inability to get or keep an erection (erectile dysfunction). What happens before the procedure? Staying hydrated Follow instructions from your health care provider about hydration, which may include: Up to 2 hours before the procedure you may continue to drink clear liquids, such as water, clear fruit juice, black coffee, and plain tea. Eating and drinking restrictions Follow instructions from your health care provider about eating and drinking, which may include: 8 hours before the procedure stop eating heavy meals or foods such as meat, fried foods, or fatty foods. 6 hours before the procedure stop eating light meals or foods, such as toast or cereal. 6 hours before the procedure stop drinking milk or drinks that contain milk. 2 hours before the procedure stop drinking clear liquids. General instructions Ask your health care provider about: ?Changing or stopping your regular medicines. This is especially important if you are taking diabetes medicines or blood thinners. ?Taking medicines such as aspirin and ibuprofen. These medicines can thin your blood. Do not take these medicines before your procedure if your health care provider instructs you not to. Follow your health care provider's instructions about cleansing your bowels. Do not use any products that contain nicotine or tobacco, such as cigarettes and e-cigarettes. If you need help quitting, ask your health care provider. Practice any breathing exercises as told by your health care provider. Plan to have someone take you home from the hospital or clinic. If you will be going home right after the procedure, plan to have someone with you for 24 hours. What happens during the procedure? To reduce your risk of infection: ?Your health care team will wash or sanitize their hands. ?Your skin will be washed with soap. ?Hair may be removed from the surgical area. An IV tube will be inserted into one of your veins. You will be given one or more of the following: ?A medicine to help you relax (sedative). ?A medicine to make you fall asleep (general anesthetic). A tube (Soria catheter) will be inserted into your urethra to drain urine from your bladder. An incision will be made in your abdomen at your belly button. A laparoscope will be inserted into your abdomen through the incision. Four or more small incisions will be made. Surgical instruments will be inserted into the incisions and used to remove your prostate and seminal vesicles. Your urethra will be disconnected from your bladder. Your urethra will be reconnected to the group of muscles that help push urine through the urethra (bladder neck). The laparoscope and other surgical instruments will be removed. Your incisions will be closed with stitches (sutures). The procedure may vary among health care providers and hospitals. What happens after the procedure? Your blood pressure, heart rate, breathing rate, and blood oxygen level will be monitored until themedicines you were given have worn off. You may continue to receive fluids and medicines through an IV tube. You may be given antibiotics, or medicine to help relieve pain or nausea. You will be encouraged to walk as soon as possible. You will also use a device or do breathing exercises to keep your lungs clear. You may continue to have a Soria catheter draining your urine. You will be instructed on how to care for this at home. Do not drive for 24 hours if you received a sedative. Summary Laparoscopic prostatectomy is a surgery to remove the entire prostate gland and seminal vesicles. The surgery is performed using a thin, pencil-sized instrument (laparoscope) with a light and camera on the end to help the surgeon see inside the abdomen. You may continue to receive fluids and medicines through an IV tube. You may be given antibiotics, or medicine to help relieve pain or nausea. You will continue to have a Soria catheter draining your urine. You will be instructed on how to care for this at home. Plan to have someone take you home from the hospital or clinic. This information is not intended to replace advice given to you by your health care provider. Make sure you discuss any questions you have with your health care provider. Document Released: 07/31/2006 Document Revised: 07/13/2018 Document Reviewed: 07/17/2017 [employer] Patient Education 2020 [employer]. 11/01/2021 13:15:19 Prostate Cancer Prostate Cancer The prostate is a walnut-sized gland that is involved in the production of semen. It is located below a man's bladder, in front of the rectum. Prostate cancer is the abnormal growth of cells in the prostate gland. What are the causes? The exact cause of this condition is not known. What increases the risk? This condition is more likely to develop in men who: Are older than age 65. Are -[place]. Are obese. Have a family history of prostate cancer. Have a family history of breast cancer. What are the signs or symptoms? Symptoms of this condition include: A need to urinate often. Weak or interrupted flow of urine. Trouble starting or stopping urination. Inability to urinate. Pain or burning during urination. Painful ejaculation. Blood in urine or semen. Persistent pain or discomfort in the lower back, lower abdomen, hips, or upper thighs. Trouble getting an erection. Trouble emptying the bladder all the way. How is this diagnosed? This condition can be diagnosed with: A digital rectal exam. For this exam, a health care provider inserts a gloved finger into the rectum to feel the prostate gland. A blood test called a prostate-specific antigen (PSA) test. An imaging test called transrectal ultrasonography. A procedure in which a sample of tissue is taken from the prostate and examined under a microscope (prostate biopsy). Once the condition is diagnosed, tests will be done to determine how far the cancer has spread. This is called staging the cancer. Staging may involve imaging tests, such as: A bone scan. A CT scan. A PET scan. An MRI. The stages of prostate cancer are as follows: Stage I. At this stage, the cancer is found in the prostate only. The cancer is not visible on imaging tests and it is usually found by accident, such as during a prostate surgery. Stage II. At this stage, the cancer is more advanced than it is in stage I, but the cancer has not spread outside the prostate. Stage III. At this stage, the cancer has spread beyond the outer layer of the prostate to nearby tissues. The cancer may be found in the seminal vesicles, which are near the bladder and the prostate. Stage IV. At this stage, the cancer has spread other parts of the body, such as the lymph nodes, bones, bladder, rectum, liver, or lungs. How is this treated? Treatment for this condition depends on several factors, including the stage of the cancer, your age, personal preferences, and your overall health. Talk with your health care provider about treatment options that are recommended for you. Common treatments include: Observation for early stage prostate cancer (active surveillance). This involves having exams, blood tests, and in some cases, more biopsies. For some men, this is the only treatment needed. Surgery. Types of surgeries include: ?Open surgery. In this surgery, a larger incision is made to remove the prostate. ?A laparoscopic prostatectomy. This is a surgery to remove the prostate and lymph nodes through several, small incisions. It is often referred to as a minimally invasive surgery. ?A robotic prostatectomy. This is a surgery to remove the prostate and lymph nodes with the help ofa robotic arm that is controlled by a computer. ?Orchiectomy. This is a surgery to remove the testicles. ?Cryosurgery. This is a surgery to freeze and destroy cancer cells. Radiation treatment. Types of radiation treatment include: ?External beam radiation. This type aims beams of radiation from outside the body at the prostate to destroy cancerous cells. ?Brachytherapy. This type uses radioactive needles, seeds, wires, or tubes that are implanted into the prostate gland. Like external beam radiation, brachytherapy destroys cancerous cells. An advantage is that this type of radiation limits the damage to surrounding tissue and has fewer side effects. High-intensity, focused ultrasonography. This treatment destroys cancer cells by delivering high-energy ultrasound waves to the cancerous cells. Chemotherapy medicines. This treatment kills cancer cells or stops them from multiplying. Hormone treatment. This treatment involves taking medicines that act on one of the male hormones (testosterone): ?By stopping your body from producing testosterone. ?By blocking testosterone from reaching cancer cells. Follow these instructions at home: Take dxtv-xvo-jmjeduz and prescription medicines only as told by your health care provider. Maintain a healthy diet. Get plenty of sleep. Consider joining a support group for men who have prostate cancer. Meeting with a support group mayhelp you learn to cope with the stress of having cancer. Keep all follow-up visits as told by your health care provider. This is important. If you have to go to the hospital, notify your cancer specialist (oncologist). Treatment for prostate cancer may affect sexual function. Continue to have intimate moments with your partner. This may include touching, holding, hugging, and caressing. Contact a health care provider if: You have trouble urinating. You have blood in your urine. You have pain in your hips, back, or chest. Get help right away if: You have weakness or numbness in your legs. You cannot control urination or your bowel movements (incontinence). You have trouble breathing. You have sudden chest pain. You have chills or a fever. Summary The prostate is a walnut-sized gland that is involved in the production of semen. It is located below a man's bladder, in front of the rectum. Prostate cancer is the abnormal growth of cells in the prostate gland. Treatment for this condition depends on several factors, including the stage of the cancer, your age, personal preferences, and your overall health. Talk with your health care provider about treatment options that are recommended for you. Consider joining a support group for men who have prostate cancer. Meeting with a support group mayhelp you learn to cope with the stress of having cancer. This information is not intended to replace advice given to you by your health care provider. Make sure you discuss any questions you have with your health care provider. Document Released: 07/31/2006 Document Revised: 07/13/2018 Document Reviewed: 04/10/2017 [employer] Patient Education 2020 [employer] 11/01/2021 13:15:17 Brachytherapy for Prostate Cancer Brachytherapy for Prostate Cancer Brachytherapy for prostate cancer is radiation treatment that is placed inside of the prostate (prostate gland). There are several types of brachytherapy: Low-dose rate (LDR) therapy. This may involve temporary implants or permanent radioactive seed or pellet implants. The radiation does not travel far from the prostate, which means that healthy, noncancerous tissues around the prostate receive only a small dose of radiation. This helps to protect those tissues from injury. This type of treatment may be followed by a course of external beam radiation. ?Temporary low-dose implants are left in the prostate for 1 7 days. The implants are needles, applicators, or thin, plastic tubes (catheters) that contain radioactive material. You will need to stay in the hospital while the implant is in place. ?Permanent low-dose implants (seeds or pellets) are injected into the prostate, and they work for up to one year after they are inserted. They are left in place and are not removed. High-dose rate (HDR) therapy. This is given through needles, applicators, or catheters that containradioactive material. The tubes are removed after treatment, and no radiation is left in the prostate. This type of treatment may be followed by a course of external beam radiation. Tell a health care provider about: Any allergies you have. All medicines you are taking, including vitamins, herbs, eye drops, creams, and tlez-qbz-htrfrsw medicines. Any problems you or family members have had with anesthetic medicines. Any surgeries you have had. Any blood disorders you have. Any medical conditions you have. What are the risks? Generally, this is a safe procedure. However, problems may occur, including: Inflammation of the rectum. Problems getting or keeping an erection (erectile dysfunction). Trouble urinating. Diarrhea. Bleeding. Loss of bowel control. What happens before the procedure? Staying hydrated Follow instructions from your health care provider about hydration, which may include: Up to 2 hours before the procedure you may continue to drink clear liquids, such as water, clear fruit juice, black coffee, and plain tea. Eating and drinking Follow instructions from your health care provider about eating and drinking, which may include: 8 hours before the procedure stop eating heavy meals or foods such as meat, fried foods, or fatty foods. 6 hours before the procedure stop eating light meals or foods, such as toast or cereal. 6 hours before the procedure stop drinking milk or drinks that contain milk. 2 hours before the procedure stop drinking clear liquids. Medicines Ask your health care provider about: ?Changing or stopping your regular medicines. This is especially important if you are taking diabetes medicines or blood thinners. ?Taking medicines such as aspirin and ibuprofen. These medicines can thin your blood. Do not take these medicines before your procedure if your health care provider instructs you not to. You may be given antibiotic medicine to help prevent infection. General instructions Plan to have someone take you home from the hospital or clinic. If you will be going home right after the procedure, plan to have someone with you for 24 hours. You may have imaging tests done, including an ultrasound, CT scan, or MRI. You may have blood tests done. You may have a test to check the electrical signals in your heart (electrocardiogram). You may need to take medicine to clean out your bowel (bowel prep). What happens during the procedure? To lower your risk of infection: ?Your health care team will wash or sanitize their hands. ?Your skin will be washed with soap. ?Hair may be removed from the surgical area. An IV will be inserted into one of your veins. You will be given one or more of the following: ?A medicine to help you relax (sedative). ?A medicine to numb the area (local anesthetic). ?A medicine to make you fall asleep (general anesthetic). You may have a thin, plastic tube (catheter) inserted to drain your bladder. If you are receiving brachytherapy with implants: ?A needle, applicator, or catheter will be inserted into the prostate. It will be inserted through a body cavity, such as the rectum, or through the tissue between the testicles and the anus (perineum). ?An X-ray, ultrasound, MRI, or CT scan will be used to guide the catheter or applicator toward the prostate. ?Radioactive seeds, wires, or ribbons will be fed through the catheter or applicator. ?If the high-dose method is used: ?The radioactive wires or ribbons will be left in for a few minutes and then removed. ?Once the treatment is finished, the catheter or applicator will be removed. ?If the low-dose method is used, the implant will stay in place for 1 7 days. ?You will remain in the hospital while the implant is in place. ?Once the treatment is finished, the radioactive material and catheter will be removed. If you are receiving permanent, low-dose brachytherapy: ?Small, radioactive seeds or pellets will be injected into your prostate. This may be done through a catheter, needle, or applicator. ?The catheter or applicator will be removed, leaving the seeds in the prostate. The procedure may vary among health care providers and hospitals. What happens after the procedure? Your blood pressure, heart rate, breathing rate, and blood oxygen level will be monitored until themedicines you were given have worn off. Do not drive for 24 hours if you were given a sedative. Summary Brachytherapy for prostate cancer is radiation treatment placed inside of the prostate (prostate gland). There are several types of brachytherapy for prostate cancer, including low-dose temporary treatment, low-dose permanent treatment, and high-dose temporary treatment. Temporary low-dose implants are left in the prostate for 1 7 days. Permanent low-dose implants are injected into the prostate and left in place. They work for up to one year after they are inserted. Permanent high-dose therapy is given through tubes that contain radioactive material. The tubes areremoved after treatment, and no radiation is left in the prostate. This information is not intended to replace advice given to you by your health care provider. Make sure you discuss any questions you have with your health care provider. Document Released: 01/08/2007 Document Revised: 07/13/2018 Document Reviewed: 08/09/2017 [employer] Patient Education [employer]. Follow Up Care 09/17/2021 12:52:37 With:Isidoro GAITAN MD, URL Address: [facility] [address], [place] [address]- [phone] When: Unknown Comments:Patient to call with his decision regarding prostate cancer [facility] evaluation + Plan note No data available for this section [facility] evaluation + Plan note Future Appointments Appointment Date:12/17/2021 10:45:00 AM Scheduled Provider:Isidoro GAITAN MD Location:[facility] Appointment Type:URO Office Visit [facility] Evaluation + Plan note Future Appointments Appointment Date:12/20/2021 09:30:00 AM Scheduled Provider:Isidoro GAITAN MD Location:[facility] Appointment Type:URO Office Visit [facility] evaluation + Plan note Future Appointments Appointment Date:01/14/2022 09:45:00 AM Scheduled Provider:Isidoro GAITAN MD Location[facility] Appointment Type:URO Office Visit Diagnostic Tests Pending * PSA Total 12/20/21 [facility] evaluation + Plan note Future Appointments Appointment Date:05/09/2022 10:45:00 AM Scheduled Provider:Isidoro GAITAN MD Location:[facility] Appointment Type:URO Office Visit Diagnostic Tests Pending * PSA Total 01/14/22 [facility] [employer] evaluation + Plan note Future Appointments Appointment Date:12/09/2022 10:15:00 AM Scheduled Provider:Isidoro GAITAN MD Location:[facility] Appointment Type:URO Office Visit Diagnostic Tests Pending * PSA Total 09/12/22 [facility] evaluation + Plan note Future Appointments Appointment Date:10/30/2023 10:30:00 AM Scheduled Provider:Isidoro GAITAN MD Location:[facility] Appointment Type:URO Office Visit Diagnostic Tests Pending * PSA Total 04/24/23 [facility] evaluation + Plan note Future Appointments Appointment Date:01/03/2025 10:45:00 AM Scheduled Provider:Isidoro GAITAN MD Location:[facility] Appointment Type:URO Office Visit Diagnostic Tests Pending * PSA Total 01/01/24 [facility] evaluation noteNo [employer] Other Progress note No data available for this section [facility] reason for referral (narrative)* Reason *FU 05/24 Referral for left sided eustachian tube dysfunction Diagnosis 1 Dysfunction of left eustachian tube (H69.92) Referral Organization [facility] Referring Provider First Name Pardeep Referring Provider Last Name Arnoldo Referring Provider Specialty Internal Me dicine Referred Organization [facility] Referred Provider Anjelica Oneill Referred Address ,[place], [place],[address] Referred Provider Specialty Otolaryngolo gy Referral Priority Routine General Notes Patient w/ 2 year hx of plugged left ear. Denies tinnitus, vertigo or otorrhea. Needs Audiogram and ENT evaluation. Cely Armijo 05/17/2023 03:25:49 PM >received today, attachments made, notes locked, referral faxed and sent [id number] Other Reason for referral (narrative)* Reason *Waiting for appt Referral for screening colonoscopy due in November, Diagnosis 1 Screening for colon cancer (Z12.11) Diagnosis 2 Adenomatous polyp of descending colon (D12.4) Referral Organization [facility] Rundown kaiser Referring Provider First Name Pardeep Referring Provider Last Name Arnoldo Referring Provider Specialty Internal Me dicine Referred Organization [facility] Gastroenterolo gy Referred Provider Jonnathan Schaeffer Referred Address [address] ,[place], [place],[address] Referred Provider Specialty Gastroentero logy Referral Priority Routine General Notes He is due for screen ing colonoscopy in November,. He denies change in appetite, weight or bowel habits. He denies heartburn, dysphagia, melena or hematochezia. Cely Armijo 09/18/2023 10:45:35 AM >received today, referral faxed [employer] Other Summary Purpose Family History No Family History Records FoundNo Family History Records Found No data available for this section No Family History Records Found Advance Directives No Advanced Directives Records FoundNo Advanced Directives Records FoundNo Advanced Directives Records Found Additional Source Comments (unrecognized sect ion and content) No Status Records FoundNo Status Records FoundNo Status Records Found INFORMATION SOURCE (unrecogn ized section and content) DATE CREATED AUTHOR 11/01/2021 [facility] DATE CREATED AUTHOR AUTHOR'S ORGANIZ ATION 11/26/2022 Lori Melo [facility] DATE CREATED AUTHOR AUTHOR'S ORGANIZ ATION 01/03/2024 [facility] Patient Care team informatio n (unrecognized section and content) Personnel Name: PARDEEP MCLAUGHLIN DO Address: Address: [address], [place] [address]- Personnel Name: PARDEEP MCLAUGHLIN DO Address: Address: [address], [place] [address]- [place] Personnel Name: PARDEEP MCLAUGHLIN DO Address: Address: [address], [place], [place] [address]- REASON FOR VISIT (unrecogniz ed section and content) WellnessBP readingsBP readin gs/medicationENT REFERRAL UPDATEBP readings4 month Follow up FOR RECORDS PERTAINING TO PATIENTS WHO ARE OR HAVE BEEN ENROLLED IN A CHEMICAL DEPENDENCY/SUBSTANCEABUSE PROGRAM, SOME INFORMATION MAY BE OMITTED. This clinical summary was aggregated from multiple sources. Caution should be exercised in using it in the provision of clinical care. This summary normalizes information from multiple sources, and as a consequence, information in this document may materially change the coding, format and clinical context of patient data. In addition, data may be omitted in some cases. CLINICAL DECISIONS SHOULD BE BASED ON THE PRIMARY CLINICAL RECORDS. [facility] [employer] [facility]. provides no warranty or guarantee of the accuracy or completeness of information in this document.
[2024-05-21 10:42] LABS: Basophils Percent Auto 0.5 % (0.2-2.0); Eosinophils Absolute Auto 0.1 10^3/uL (0.0-0.7); Eosinophils Percent Auto 0.8 % (0.9-7.0); Hematocrit 48.7 % (42.0-54.0); Immature Granulocytes Abs Auto 0.01 10^3/uL (0.00-0.03); Immature Granulocytes Pct Auto 0.2 % (0.0-0.5); Lymphocytes Absolute Auto 1.6 10^3/uL (1.2-3.8); Lymphocytes Percent Auto 25.2 % (20.5-60.0); Mean Corpuscular HGB Conc 32.9 g/dL (29.9-35.2); Mean Corpuscular Hemoglobin 29.4 pg (25.9-34.0); Mean Corpuscular Volume 89.5 fL (80.0-94.0); Mean Platelet Volume 9.4 fL (9.5-13.5); Monocytes Absolute Auto 0.5 10^3/uL (0.3-0.8); Monocytes Percent Auto 8.8 % (1.7-12.0); Neutrophils Percent Auto 64.5 % (43.0-75.0); Platelet Count 263 10^3/uL (150-450); Red Blood Count 5.44 10^6/uL (4.70-6.10); Red Cell Distribution Width 14.6 % (11.0-15.0); White Blood Count 6.2 10^3/uL (4.0-11.0)
[2024-05-21 11:34] LABS: Anion Gap 13.6; BUN Creatinine Ratio 22.1; C Reactive Protein 7.13 mg/dL (<=0.50); Calcium 9.7 mg/dL (8.5-10.1); Carbon Dioxide 31.2 mmol/L (21.0-32.0); Chloride 97 mmol/L (98-107); Estimated GFR (African America 59 (>=60 mL/min/1.73m^2); Estimated GFR (Non-African Ame 49 (>=60 mL/min/1.73m^2); Glucose 62 mg/dL (74-106); Potassium 3.8 mmol/L (3.5-5.1); Sodium 138 mmol/L (136-145); Thyroid Stimulating Hormone 0.773 uIU/mL (0.358-3.740)
== END 2024-05-21 09:56 | disposition home or self-care (01) ==
LOC: LAB 09:58
PROVIDERS: PCP Internal Medicine; Visit Provider Internal Medicine
DX: R63.4 Abnormal weight loss (principal); R53.83 Other fatigue; R81 Glycosuria
CPT/HCPCS: 36415; 80048; 84443; 85025; 86140

== ENCOUNTER 2025-05-21 12:24 | Outpatient (OUT) | payer OTHER, SELFPAY ==
--- OUTSIDE RECORDS SUMMARY | 2025-05-21 12:31 | XMS_ITS | CCD ---
Author Organization [facility] CliniSytn Care Team Providers Care Laundry Clerk Name Role Phone PARDEEP MCLAUGHLIN Primary Care Physician [phone] GAITAN ., DR IVERSON Attending Unavailable GAITAN ., DR IVERSON Consulting Unavailable GAITAN ., DR IVERSON Admitting Unavailable BALL, DR CERVANTES Primary Care Unavailable GAITAN ., DR IVERSON Attending Unavailable GAITAN ., DR IVERSON Consulting Unavailable GAITAN ., DR IVERSON Admitting Unavailable BALL, DR CERVANTES Primary Care Unavailable MCGILL, REBEKA Consulting Unavailable GAITAN ., DR IVERSON Attending Unavailable GAITAN ., DR IVERSON Consulting Unavailable GAITAN ., DR IVERSON Admitting Unavailable BALL, DR CERVANTES Primary Care Unavailable NICOLÁS [place], DR CARLITOS Ibanez Consulting Unavaila ble GAITAN ., DR IVERSON Procedure Practitioner Unav ailable AGUBOSIM, BRANDIN Consulting Unavailable DORKOSKIE, MAXIME Consulting Unavailable GAITAN ., DR IVERSON Attending Unavailable GAITAN ., DR IVERSON Consulting Unavailable BALL, DR CERVANTES Primary Care Unavailable GAITAN ., DR IVERSON Admitting Unavailable BALL, DR CERVANTES Primary Care Unavailable BALL, DR CERVANTES Admitting Unavailable BALL, DR CERVANTES Attending Unavailable BALL, DR CERVANTES Consulting Unavailable BALL, DR CERVANTES Primary Care Unavailable GAITAN ., DR IVERSON Attending Unavailable GAITAN ., DR IVERSON Consulting Unavailable GAITAN ., DR IVERSON Admitting Unavailable GAITAN ., DR IVERSON Attending Unavailable BALL, DR CERVANTES Primary Care Unavailable GAITAN ., DR IVERSON Admcosta Unavailable GAITAN ., DR IVERSON Consulting Unavailable Pardeep Mclaughlin Unavailable DO Pardeep Mclaughlin Primary Care Provider MD De Travis Attending Provider Pardeep Mclaughlin Primary Care Unavailable De Travis Attending Unavailable De Travis Admitting Unavailable Ball Pardeep BEACH Primary Care Provider De Travis MD Attending Provider Isidoro GAITAN Attending Unavailable GAITANIsidoro Attending Unavailable Medications Current Medications Medication Drug Class(es) Dates Sig (Normalized) Sig (Original) cephalexin 500 mg oral capsule (2 sources) Cephalosporin Antibacterial Start: 12-17-2021 cephalexin 500 mg Cap Refills(s) 0 Start Date: 12/17/21 Status: Ordered [place] (No Known Home Meds) (4 sources) Start: 06-26-2024 [place] (No Known Home Meds) Active June 26, 2024 12:00am Start: 05-20-2024 [place] (No Kn own Home Meds) Active May 20, 2024 12:00am olmesartan medoxomil 5 mg oral tablet (1 [...] dysfunction, # 30 tab(s), Refills(s) 1, Pharmacy: [id number], 173, cm, 04/24/23 13:49:00 EDT, Height/Length Dosing, 72.1, kg, 04/24/23 13:49:00 EDT, Weight Dosing Start Date: 04/24/23 Status: Ordered Start: 01-14-2022 End: 01-09-2023 take 1 tablet by mouth every twenty-four hours Cialis 20 MG 1 tablet as needed Orally Once a day for 0 days May, Active Completed/Discontinued Medications Medication Drug Class(es) Dates Sig (Normalized) Sig (Original) [id number] Xyg-Dljd-Jjn-Asb-C (4 sources) Osmotic Laxative, Vitamin C Start: 10-05-2023 End: 04-22-2024 take 1 dose by mouth once, then take 2 doses by mouth once [id number] Bar-Uxlj-Orh-Asb-C (Plenvu) 140-9-5.2 gram powder in packet, sequential Discontinued 140 ML PO .COMPLEX 1 1 October 05, 2023 12:00am April 22, 2024 10:30am Take dose 1 at 4pm orally the day before colonoscopy, Take dose 2 at 11pm orally the day before colonoscopy. Patient mailed detailed instructions. Start: 10-05-2023 End: 04-22-2024 take 1 dose by mouth once, then take 2 doses by mouth once [id number] Bdr-Mwnj-Xmc-Asb-C (Plenvu) 140-9-5.2 gram powder in packet, sequential Discontinued 140 ML PO .COMPLEX 1 October 05, 2023 1:00am April 22, 2024 11:30am Take dose 1 at 4pm orally the day before colonoscopy, Take dose 2 at 11pm orally the day before colonoscopy. Patient mailed detailed instructions. erythromycin 500 mg oral tablet (3 sources) Macrolide, Macrolide Antimicrobial Start: 11-25-2021 take 2 tablets by mouth three times daily erythromycin 500 mg Tab 1,000 mg = 2 tab(s), Oral, TID, Take 2 pills at 2pm, 4pm and midnight, # 6 tab(s), Refills(s) 0, Pharmacy: [facility]/pharmacy #[id number], 173, cm, 11/01/21 12:52:00 EDT, Height/Length Dosing, 72.3, kg, 11/01/21 12:52:00 EDT, Weight Dosing Start Date: 11/25/21 Status: Ordered losartan potassium 25 mg oral tablet (20 sources) Angiotensin 2 Receptor Ita Start: 04-22-2024 End: 2024 take 1 tablet by mouth once daily Losartan 25 mg tablet Discontinued 25 MG PO Daily April 22, 2024 10:30am 2024 11:39am Start: 04-19-2024 End: 04-22-2024 take 1 tablet by mouth once daily Losartan Discontinued 0 .ROUTE .COMPLEX April 19, 2024 9:00am April 22, 2024 11:30am TAKE 1 TABLET BY MOUTH EVERY DAY FOR 30 DAYS Start: 01-01-2024 losartan 25 mg Tab Refills(s) 0 Start Date: 01/01/24 Status: Ordered Start: 10-25-2023 End: 04-22-2024 take 1 tablet by mouth once daily Losartan 25 mg tablet Discontinued 0 .ROUTE .COMPLEX April 19, 2024 8:00am April 22, 2024 10:30am TAKE 1 TABLET BY MOUTH EVERY DAY FOR 30 DAYS Start: 10-25-2023 End: 10-25-2023 take 1 tablet by mouth once daily Losartan 25 mg tablet Discontinued 25 MG PO Daily October 24, 2023 11:00pm October 25, 2023 5:11pm Start: 06-26-2023 take 1 tablet by corby th every twenty-four hours Losartan Potassium 25 MG 1 tablet Orally Once a day Jun, Active metroNIDAZOLE 250 mg oral tablet (3 sources) Nitroimidazole Antimicrobial Start: 11-25-2021 take 1 tablet by mouth three times daily Flagyl 250 mg Tab 250 mg = 1 tab(s), Oral, TID, Take 1 tablet at 2pm, 4pm and midnight, # 3 tab(s), Refills(s) 0, Pharmacy: [facility]/pharmacy #[id number], 173, cm, 11/01/21 12:52:00 EDT, Height/Length [...] midnight, # 6 tab(s), Refills(s) 0, Pharmacy: [facility]/pharmacy #[id number], 173, cm, 11/01/21 12:52:00 EDT, Height/Length Dosing, 72.3, kg, 11/01/21 12:52:00 EDT, Weight Dosing Start Date: 11/25/21 Status: Ordered no home meds (4 sources) Start: 2024 End: 05-20-2024 no home meds Discontinued May 13, 2024 11:00pm May 20, 2024 7:56am Start: 2024 End: 05-20-2024 no home meds Discontinued Oc tober 2023 12:00am May 20, 2024 8:56am sertraline 100 mg oral tablet (8 sources) Serotonin Reuptake Inhibitor Start: 05-20-2024 End: 06-26-2024 take 1 tablet by mouth once at bedtime Sertraline 100 mg tablet Discontinued 100 MG PO .COMPLEX May 20, 2024 8:37am June 26, 2024 2:40pm 100 mg orally; 1/2 tablet (50mg) q HS x first week, then increase to 100mg q HS Start: 04-22-2024 End: 2024 take 1 tablet by mouth once at bedtime Sertraline 100 mg tablet Discontinued 100 MG PO .COMPLEX April 21, 2024 11:00pm 2024 11:40am 100 mg orally; 1/2 tablet (50mg) q HS x first week, then increase to 100mg q HS Sod Picosulf-Mag Ox-Citric A c (4 sources) Start: 05-02-2024 End: 05-20-2024 Sod Picosulf-Mag Ox-Citric A c (Clenpiq) 10 mg-3.5 gram- 12 gram/175 mL solution Discontinued 175 ML PO .COMPLEX 350 May 01, 2024 11:00pm May 20, 2024 7:55am Follow instructions given by office Start: 05-02-2024 End: 05-20-2024 Sod Picosulf-Mag Ox-Citric A c (Clenpiq) 10 mg-3.5 gram- 12 gram/175 mL solution Discontinued 175 ML PO .COMPLEX 350 May 02, 2024 12:00am May 20, 2024 8:55am Follow instructions given by office Problems Problem Classification Problem Date Documented Date Episodic/Chronic Anxiety disorders (20 sources) Generalized anxiety disorder; Translations: [Generalized anxiety disorder] Onset: 12-09-2021 08-20-2021 Chronic Cancer of prostate (20 sources) Malignant neoplasm of prostate; Translations: [Malignant tumor of prostate] Onset: 11-01-2021 Chronic Comment on above: s/p radical prostate ctomy 2021 Cancer of prostate (2 sources) Personal history of malignant neoplasm of prostate; Translations: [History of malignant neoplasm of prostate] Onset: 01-01-2024 Episodic Diabetes mellitus without complication (9 sources) Glycosuria; Translations: [Glycosuria] 05-20-2024 Episodic Disorders of lipid metabolism (20 sources) Hyperlipidemia, group A; Translations: [Hyperlipidemia, unspecified] Onset: 12-16-2021 08-20-2021 Chronic Essential hypertension (20 sources) Essential hypertension; Translations: [Essential (primary) hypertension] Chronic Genitourinary symptoms and ill-defined conditions (7 sources) Unspecified urinary incontinence; Translations: [Urinary incontinence] Onset: 01-14-2022 Chronic Hyperplasia of prostate (13 sources) Benign prostatic hypertrophy with outflow obstruction; Translations: [Benign prostatic hyperplasia with lower urinary tract symptoms] Onset: 11-01-2021 Chronic Malaise and fatigue (4 sources) Fatigue; Translations: [Other fatigue] 05-20-2024 Episodic Mood disorders (9 sources) Recurrent major depressive [...] Translations: [Erectile dysfunction] Onset: 01-01-2024 Chronic Other nutritional; endocrine; and metabolic disorders (4 sources) Abnormal weight loss; Translations: [Abnormal weight loss] 04-22-2024 Episodic Other nutritional; endocrine; and metabolic disorders (8 sources) Abnormal weight loss; Translations: [Loss of weight] 04-22-2024 Episodic Other screening for suspected conditions (not mental disorders or infectious disease) (18 sources) Raised prostate specific antigen; Translations: [Elevated prostate specific antigen [PSA]] Onset: 11-01-2021 Episodic Otitis media and related conditions (2 sources) Unspecified Eustachian tube disorder, left ear Episodic Unclassified (1 source) CONTACT W/AND (SUSP) EXPOS COVID-19; Translations: [CONTACT W/AND (SUSP) EXPOS COVID-19] Onset: 12-09-2021 Results Test Name Value Interpretation Reference Range Facility Provider Letteron 12-30-2024 Provider Letter Provider Letter December 30, 2024 TAWANDA WARNER [address] [place] [address] : 1960 Dear Mr. Warner , We have been trying to reach you with no success. It is important that you return our call regarding your January 03, 2025 that needs to be rescheduled, upon receiving this letter. Also, at the time of your call, please provide us with your current information. Thank you for your prompt attention to this matter. Sincerely, [facility] [address], [address] [place] [address] [facility] No Panel InformationOrdered By: De Travis on 05-28-2024 Miscellaneous Pathology Test See comment [facility] Comment on above: See report. Scanned copy available in EMR. Pathology Request for Lab Co rpon 05-28-2024 Pathology Request for Lab Tip Normal [facility] Comment on above: Order Comment: PATHO LOGY GI SPECIMEN Result Comment: See report. Scanned copy available in EMR. PERFORMED BY: [address] [place] [address] PATHOLOGIST [employer] SALES AGENT ZHANNA LUCAS M.D. Performed By: #### P ATH TO [facility] #### [address] Basophils Auto (Bld) [#/Vol] on 05-21-2024 Basophils (Bld) [#/Vol] 0.0 10 3/uL 0.0-0.1 [facility] Basophils (Bld) [#/Vol] Automated basoph il count 0.0-0.1 [facility] Basophils/100 WBC Auto (Bld) on 05-21-2024 Basophils/100 WBC (Bld) 0.5 % 0.2-2.0 [facility] Basophils/100 WBC (Bld) Automated basoph il % 0.2-2.0 [facility] Eosinophils/100 WBC Auto (Bl d)on 05-21-2024 Eosinophils/100 WBC (Bld) 0.8 % Low 0.9-7.0 [facility] Eosinophils/100 WBC (Bld) Automated eosinophil % Low 0.9-7.0 [facility] Erythrocyte distribution wid th Auto (RBC) [Ratio]on 05-21-2024 Erythrocyte distribution width (RBC) [Ratio] 14.6 % 11.0-15.0 [facility] Erythrocyte distribution width (RBC) [Ratio] Erythrocyte distribution width [Ratio] by Automated count 11.0-15.0 [facility] Estimated glomerular filtrat ion rate (GFR) non- Americanon 05-21-2024 GFR/1.73 sq M.predicted among non-blacks MDRD (S/P/Bld) [Vol rate/Area] 49 mL/min/{1.73_m2} Low >=60 mL/min/1.73m 2 [facility] GFR/1.73 sq M.predicted among non-blacks MDRD (S/P/Bld) [Vol rate/Area] Estimated glomerular filtration rate (GFR) non- Low >=60 mL/min/1.73m 2 [facility] Hematocrit Auto (Bld) [Volum e fraction]on 05-21-2024 Hematocrit (Bld) [Volume fraction] 48.7 % 42.0-54.0 [facility] Hematocrit (Bld) [Volume fraction] Hematocrit [Volume Fraction] of Blood by Automated count 42.0-54.0 [facility] Hemoglobin [Mass/volume] in Bloodon 05-21-2024 Hemoglobin (Bld) [Mass/Vol] 16.0 g/dL 14.0-18.0 [facility] Hemoglobin (Bld) [Mass/Vol] Hemoglobin [Mass/volume] in Blood 14.0-18.0 [facility] Laboratory - Chemistry and C hemistry - challengeon 05-21-2024 Calcium [Mass/Vol] 9.7 mg/dL 8.5-10.1 [facility] Chloride [Moles/Vol] 97 mmol/L Low 98-107 [facility] CO2 [Moles/Vol] 31.2 mmol/L 21.0-32.0 [facility] Creatinine [Mass/Vol] 1.45 mg/dL High 0.70-1.30 [facility] GFR/1.73 sq M.predicted MDRD (S/P/Bld) [Vol rate/Area] 59 mL/min/{1.73_m2} Low >=60 mL/min/1.73m 2 [facility] Glucose [Mass/Vol] 62 mg/dL Low 74-106 [facility] Potassium [Moles/Vol] 3.8 mmol/L 3.5-5.1 [facility] Sodium [Moles/Vol] 138 mmol/L 136-145 [facility] TSH Qn 0.773 m[IU]/L 0.358-3.740 [facility] Urea nitrogen [Mass/Vol] 32.0 mg/dL High 7.0-18.0 [facility] Urea nitrogen/Creatinine [Mass ratio] 22.1 mg/mg [facility] Laboratory - Hematology and Cell countson 05-21-2024 Immature granulocytes/100 WBC (Bld) 0.2 % 0.0-0.5 [facility] Leukocytes [#/volume] correc fabrice for nucleated erythrocytes in Blood by Automated counon 05-21-2024 WBC corrected for nucl RBC Auto (Bld) [#/Vol] 6.2 10 3/uL 4.0-11.0 [facility] WBC corrected for nucl RBC Auto (Bld) [#/Vol] Leukocytes [#/volume] corrected for nucleated erythrocytes in Blood by Automated coun 4.0-11.0 [facility] Lymphocytes Auto (Bld) [#/Vo l]on 05-21-2024 Lymphocytes (Bld) [#/Vol] 1.6 10 3/uL 1.2-3.8 [facility] Lymphocytes (Bld) [#/Vol] Lymphocytes [#/volume] in Blood by Automated count 1.2-3.8 [facility] Lymphocytes/100 WBC Auto (Bl d)on 05-21-2024 Lymphocytes/100 WBC (Bld) 25.2 % 20.5-60.0 [facility] Lymphocytes/100 WBC (Bld) Lymphocytes/100 leukocytes in Blood by Automated count 20.5-60.0 [facility] MCH Auto (RBC) [Entitic mass ]on 05-21-2024 MCH (RBC) [Entitic mass] 29.4 pg 25.9-34.0 [facility] MCH (RBC) [Entitic mass] MCH [Entitic mass] by Automated count 25.9-34.0 [facility] MCHC Auto (RBC) [Mass/Vol]on 05-21-2024 MCHC (RBC) [Mass/Vol] 32.9 g/dL 29.9-35.2 [facility] MCHC (RBC) [Mass/Vol] MCHC [Mass/volume] by Automated count 29.9-35.2 [facility] MCV Auto (RBC) [Entitic vol] on 05-21-2024 MCV (RBC) [Entitic vol] 89.5 fL 80.0-94.0 [facility] MCV (RBC) [Entitic vol] MCV [Entitic volume] by Automated count 80.0-94.0 [facility] Monocytes Auto (Bld) [#/Vol] on 05-21-2024 Monocytes (Bld) [#/Vol] 0.5 10 3/uL 0.3-0.8 [facility] Monocytes (Bld) [#/Vol] Automated blood monocyte count 0.3-0.8 [facility] Monocytes/100 WBC Auto (Bld) on 05-21-2024 Monocytes/100 WBC (Bld) 8.8 % 1.7-12.0 [facility] Monocytes/100 WBC (Bld) Automated monocy te % 1.7-12.0 [facility] Neutrophils Auto (Bld) [#/Vo l]on 05-21-2024 Neutrophils (Bld) [#/Vol] 4.0 10 3/uL 1.4-6.5 [facility] Neutrophils (Bld) [#/Vol] Neutrophils [#/volume] in Blood by Automated count 1.4-6.5 [facility] Neutrophils/100 WBC Auto (Bl d)on 05-21-2024 Neutrophils/100 WBC (Bld) 64.5 % 43.0-75.0 [facility] Neutrophils/100 WBC (Bld) Automated neutrophil % 43.0-75.0 [facility] No Panel Informationon 05-21 C-Reactive Protein, Quantitative 7.13 mg/dL High <=0.50 [facility] Eosinophils # (Auto) 0.1 10 3/uL 0.0-0.7 [facility] Immature Granulocyte # (Auto) 0.01 10 3/uL 0.00-0.03 [facility] Platelet mean volume Auto (B ld) [Entitic vol]on 05-21-2024 Platelet mean volume (Bld) [Entitic vol] 9.4 fL Low 9.5-13.5 [facility] Platelet mean volume (Bld) [Entitic vol] Platelet mean volume [Entitic volume] in Blood by Automated count Low 9.5-13.5 [facility] Platelets Auto (Bld) [#/Vol] on 05-21-2024 Platelets (Bld) [#/Vol] 263 10 3/uL 150-450 [facility] Platelets (Bld) [#/Vol] Platelets [#/volume] in Blood by Automated count 150-450 [facility] RBC Auto (Bld) [#/Vol]on RBC (Bld) [#/Vol] 5.44 10 6/uL 4.70-6.10 [facility] RBC (Bld) [#/Vol] Erythrocytes [#/volume] in Blood by Automated count 4.70-6.10 [facility] Serum or plasma anion gap de terminationon 05-21-2024 Anion gap [Moles/Vol] 13.6 mmol/L Fi [facility] Anion gap [Moles/Vol] Serum or plasma anion gap determination [facility] Laboratory - Chemistry and C hemistry - challengeon 04-25-2024 Bilirubin Ql (U) Negative NEGATIVE [facility] Glucose (U) [Mass/Vol] 100 mg/dL Abnormal NEGATIVE [facility] Ketones Ql (U) 15 mg/dL Abnormal NEGATIVE [facility] pH (U) 6.0 [pH] 5.0-9.0 [facility] Specific gravity (U) [Rel density] >=1.030 Abnormal 1.005-1.025 [facility] Urobilinogen Qn (U) 2.0 {Jose'U}/dL Abnormal 0.2-1.0 [facility] Laboratory - Specimen inform ationon 04-25-2024 Appearance (U) CLEAR CLEAR [facility] Color (U) YELLOW YELLOW [facility] Laboratory - Urinalysison Leukocyte esterase Test strip Ql (U) Negative NEGATIVE [facility] Nitrite Ql (U) Negative NEGATIVE [facility] Protein Ql (U) Negative NEG/TRACE [facility] No Panel InformationOrdered By: Alysha Osborne on 04-25-2024 E coli Shiga Toxin EIA Fi [facility] Salmonella/Shigella Screen [facility] E coli Shiga Toxin EIA Fi [facility] Salmonella/Shigella Screen [facility] No Panel Informationon 04-25 Miscellaneous Test Comment See comment [facility] Comment on above: Specimen Source: ST - Stool - Stool - 700.100 Stool Campylobacter Culture Res 1 \R\ Campylobacter Culture\R\ No Campylobacter species isolated. [facility] Comment on above: [facility], Urine Occult Blood Negative NEGATIVE [facility] Basophils Auto (Bld) [#/Vol] on 04-22-2024 Basophils (Bld) [#/Vol] 0.1 10 3/uL 0.0-0.1 [facility] Basophils (Bld) [#/Vol] Automated basoph il count 0.0-0.1 [facility] Basophils/100 WBC Auto (Bld) on 04-22-2024 Basophils/100 WBC (Bld) 0.8 % 0.2-2.0 [facility] Basophils/100 WBC (Bld) Automated basoph il % 0.2-2.0 [facility] Eosinophils/100 WBC Auto (Bl d)on 04-22-2024 Eosinophils/100 WBC (Bld) 1.1 % 0.9-7.0 [facility] Eosinophils/100 WBC (Bld) Automated eosinophil % 0.9-7.0 [facility] Erythrocyte distribution wid th Auto (RBC) [Ratio]on 04-22-2024 Erythrocyte distribution width (RBC) [Ratio] 14.0 % 11.0-15.0 [facility] Erythrocyte distribution width (RBC) [Ratio] Erythrocyte distribution width [Ratio] by Automated count 11.0-15.0 [facility] Estimated glomerular filtrat ion rate (GFR) non- Americanon 04-22-2024 GFR/1.73 sq M.predicted among non-blacks MDRD (S/P/Bld) [Vol rate/Area] mL/min/{1.73_m2} >=60 [facility] GFR/1.73 sq M.predicted among non-blacks MDRD (S/P/Bld) [Vol rate/Area] Estimated glomerular filtration rate (GFR) non- >=60 [facility] Globulin Calc (S) [Mass/Vol] on 04-22-2024 Globulin (S) [Mass/Vol] 3.0 g/dL [facility] Globulin (S) [Mass/Vol] Serum globulin measurement by calculation (mass/volume) [facility] Hematocrit Auto (Bld) [Volum e fraction]on 04-22-2024 Hematocrit (Bld) [Volume fraction] 44.6 % 42.0-54.0 [facility] Hematocrit (Bld) [Volume fraction] Hematocrit [Volume Fraction] of Blood by Automated count 42.0-54.0 [facility] Hemoglobin [Mass/volume] in Bloodon 04-22-2024 Hemoglobin (Bld) [Mass/Vol] 15.0 g/dL 14.0-18.0 [facility] Hemoglobin (Bld) [Mass/Vol] Hemoglobin [Mass/volume] in Blood 14.0-18.0 [facility] Laboratory - Chemistry and C hemistry - challengeon 04-22-2024 Albumin [Mass/Vol] 3.9 g/dL 3.4-5.0 [facility] ALP [Catalytic activity/Vol] 57 U/L 46-116 [facility] ALT [Catalytic activity/Vol] 17 U/L 16-63 [facility] AST [Catalytic activity/Vol] 12 U/L Low 15-37 [facility] Bilirubin [Mass/Vol] 0.8 mg/dL 0.2-1.0 [facility] Calcium [Mass/Vol] 9.0 mg/dL 8.5-10.1 [facility] Chloride [Moles/Vol] 101 mmol/L 98-107 [facility] CO2 [Moles/Vol] 29.0 mmol/L 21.0-32.0 [facility] Creatinine [Mass/Vol] 1.15 mg/dL 0.70-1.30 [facility] GFR/1.73 sq M.predicted MDRD (S/P/Bld) [Vol rate/Area] mL/min/{1.73_m2} >=60 [facility] Glucose [Mass/Vol] 105 mg/dL 74-106 [facility] Potassium [Moles/Vol] 3.7 mmol/L 3.5-5.1 [facility] Protein [Mass/Vol] 6.9 g/dL 6.4-8.2 [facility] Sodium [Moles/Vol] 138 mmol/L 136-145 [facility] TSH Qn 1.183 m[IU]/L 0.358-3.740 [facility] Urea nitrogen [Mass/Vol] 22.0 mg/dL High 7.0-18.0 [facility] Urea nitrogen/Creatinine [Mass ratio] 19.1 mg/mg [facility] Laboratory - Hematology and Cell countson 04-22-2024 Immature granulocytes/100 WBC (Bld) 0.1 % 0.0-0.5 [facility] Leukocytes [#/volume] correc fabrice for nucleated erythrocytes in Blood by Automated counon 04-22-2024 WBC corrected for nucl RBC Auto (Bld) [#/Vol] 7.1 10 3/uL 4.0-11.0 [facility] WBC corrected for nucl RBC Auto (Bld) [#/Vol] Leukocytes [#/volume] corrected for nucleated erythrocytes in Blood by Automated coun 4.0-11.0 [facility] Lymphocytes Auto (Bld) [#/Vo l]on 04-22-2024 Lymphocytes (Bld) [#/Vol] 1.5 10 3/uL 1.2-3.8 [facility] Lymphocytes (Bld) [#/Vol] Lymphocytes [#/volume] in Blood by Automated count 1.2-3.8 [facility] Lymphocytes/100 WBC Auto (Bl d)on 04-22-2024 Lymphocytes/100 WBC (Bld) 20.3 % Low 20.5-60.0 [facility] Lymphocytes/100 WBC (Bld) Lymphocytes/100 leukocytes in Blood by Automated count Low 20.5-60.0 [facility] MCH Auto (RBC) [Entitic mass ]on 04-22-2024 MCH (RBC) [Entitic mass] 29.4 pg 25.9-34.0 [facility] MCH (RBC) [Entitic mass] MCH [Entitic mass] by Automated count 25.9-34.0 [facility] MCHC Auto (RBC) [Mass/Vol]on 04-22-2024 MCHC (RBC) [Mass/Vol] 33.6 g/dL 29.9-35.2 [facility] MCHC (RBC) [Mass/Vol] MCHC [Mass/volume] by Automated count 29.9-35.2 [facility] MCV Auto (RBC) [Entitic vol] on 04-22-2024 MCV (RBC) [Entitic vol] 87.3 fL 80.0-94.0 [facility] MCV (RBC) [Entitic vol] MCV [Entitic volume] by Automated count 80.0-94.0 [facility] Monocytes Auto (Bld) [#/Vol] on 04-22-2024 Monocytes (Bld) [#/Vol] 0.5 10 3/uL 0.3-0.8 [facility] Monocytes (Bld) [#/Vol] Automated blood monocyte count 0.3-0.8 [facility] Monocytes/100 WBC Auto (Bld) on 04-22-2024 Monocytes/100 WBC (Bld) 7.0 % 1.7-12.0 [facility] Monocytes/100 WBC (Bld) Automated monocy te % 1.7-12.0 [facility] Neutrophils Auto (Bld) [#/Vo l]on 04-22-2024 Neutrophils (Bld) [#/Vol] 5.0 10 3/uL 1.4-6.5 [facility] Neutrophils (Bld) [#/Vol] Neutrophils [#/volume] in Blood by Automated count 1.4-6.5 [facility] Neutrophils/100 WBC Auto (Bl d)on 04-22-2024 Neutrophils/100 WBC (Bld) 70.7 % 43.0-75.0 [facility] Neutrophils/100 WBC (Bld) Automated neutrophil % 43.0-75.0 [facility] No Panel Informationon 04-22 Eosinophils # (Auto) 0.1 10 3/uL 0.0-0.7 [facility] Immature Granulocyte # (Auto) 0.01 10 3/uL 0.00-0.03 [facility] Platelet mean volume Auto (B ld) [Entitic vol]on 04-22-2024 Platelet mean volume (Bld) [Entitic vol] 9.4 fL Low 9.5-13.5 [facility] Platelet mean volume (Bld) [Entitic vol] Platelet mean volume [Entitic volume] in Blood by Automated count Low 9.5-13.5 [facility] Platelets Auto (Bld) [#/Vol] on 04-22-2024 Platelets (Bld) [#/Vol] 257 10 3/uL 150-450 [facility] Platelets (Bld) [#/Vol] Platelets [#/volume] in Blood by Automated count 150-450 [facility] RBC Auto (Bld) [#/Vol]on RBC (Bld) [#/Vol] 5.11 10 6/uL 4.70-6.10 [facility] RBC (Bld) [#/Vol] Erythrocytes [#/volume] in Blood by Automated count 4.70-6.10 [facility] Serum or plasma albumin/glob ulin mass ratioon 04-22-2024 Albumin/Globulin [Mass ratio] 1.3 {ratio} [facility] Albumin/Globulin [Mass ratio] Serum or plasma albumin/globulin mass ratio [facility] Serum or plasma anion gap de terminationon 04-22-2024 Anion gap [Moles/Vol] 11.7 mmol/[facility] Anion gap [Moles/Vol] Serum or plasma anion gap determination [facility] CBC AUTO DIFFon 05-17-2022 BASO # 0.1 103/ul Normal 0.0-0.1 [facility] Comment on above: Performed By: #### B MP #### [facility] [address] [address] [address] Herson Narvaez Basophils/100 WBC (Bld) 1.0 % Normal 0.2-2.0 [facility] Comment on above: Performed By: #### B MP #### [facility] [address] [place] [address] Dr. Herson Narvaez EO # 0.2 103/ul Normal 0.0-0.7 [facility] Comment on above: Performed By: #### B MP #### [facility] [address] [place] [address] Dr. Herson Narvaez Eosinophils/100 WBC (Bld) 3.1 % Normal 0.9-7.0 [facility] Comment on above: Performed By: #### B MP #### [facility] [address] [place] [address] Dr. Herson Narvaez Erythrocyte distribution width (RBC) [Ratio] 15.8 % Critically high 11.0-15.0 [facility] Comment on above: Performed By: #### B MP #### [facility] [address] [place] [address] Dr. Herson Narvaez Hematocrit (Bld) [Volume fraction] 44.7 % Normal 42.0-54.0 [facility] Comment on above: Performed By: #### B MP #### [facility] [address] [place] [address] Dr. Herson Narvaez Hemoglobin (Bld) [Mass/Vol] 14.4 g/dL Normal 14.0-18.0 [facility] Comment on above: Performed By: #### B MP #### [facility] [address] [place] [address] Dr. Herson Narvaez IG # 0.01 10e3/ul Normal 0.00-0.03 [facility] Comment on above: Performed By: #### B MP #### [facility] [address] [place] [address] Dr. Herson Narvaez IG % 0.2 % Normal 0.0-0.5 [facility] Comment on above: Performed By: #### B MP #### [facility] [address] [place] [address] Dr. Herson Narvaez LYMPH # 1.5 103/ul Normal 1.2-3.8 [facility] Comment on above: Performed By: #### B MP #### [facility] [address] [place] [address] Dr. Herson Narvaez Lymphocytes/100 WBC (Bld) 26.0 % Normal 20.5-60.0 [facility] Comment on above: Performed By: #### B MP #### [facility] [address] [place] [address] Dr. Herson Narvaez MANUAL DIFF REQ NO Normal [facility] Comment on above: Performed By: #### B MP #### [facility] [address] [place] [address] Dr. Herson Narvaez MCH (RBC) [Entitic mass] 27.9 pg Normal 25.9-34.0 [facility] Comment on above: Performed By: #### B MP #### [facility] [address] [place] [address] Dr. Herson Narvaez MCHC (RBC) [Mass/Vol] 32.2 g/dL Normal 29.9-35.2 [facility] Comment on above: Performed By: #### B MP #### [facility] [address] [place] [address] Dr. Herson Narvaez MCV (RBC) [Entitic vol] 86.6 fL Normal 80.0-94.0 [facility] Comment on above: Performed By: #### B MP #### [facility] [address] [place] [address] Dr. Herson Narvaez MONO # 0.5 103/ul Normal 0.3-0.8 [facility] Comment on above: Performed By: #### B MP #### [facility] [address] [place] [address] Dr. Herson Narvaez Monocytes/100 WBC (Bld) 7.9 % Normal 1.7-12.0 [facility] Comment on above: Performed By: #### B MP #### [facility] [address] [place] [address] Dr. Herson Narvaez NEUT # 3.6 103/ul Normal 1.4-6.5 [facility] Comment on above: Performed By: #### B MP #### [facility] [address] [address] [address] Herson Narvaez Neutrophils/100 WBC (Bld) 61.8 % Normal 43.0-75.0 [facility] Comment on above: Performed By: #### B MP #### [facility] [address] [address] [address] Herson Narvaez Platelet mean volume (Bld) [Entitic vol] 9.6 fL Normal 9.5-13.5 [facility] Comment on above: Performed By: #### B MP #### [facility] [address] [address] [address] Herson Narvaez PLT 242 103/ul Normal 150-450 [facility] Comment on above: Performed By: #### B MP #### [facility] [address] [place] [address] Dr. Herson Narvaez RBC 5.16 106/ul Normal 4.70-6.10 [facility] Comment on above: Performed By: #### B MP #### [facility] [address] [place] [address] Dr. Herson Narvaez WBC 5.8 103/ul Normal 4.0-11.0 [facility] Comment on above: Performed By: #### B MP #### [facility] [address] [place] [address] Dr. Herson Narvaez LIPID PROFILEon 05-17-2022 CHOL-HDL RATIO NORM SEE BELOW Normal [facility] Comment on above: Result Comment: 3.3 - 4.4 LOW RISK 4.4 - 7.1 AVERAGE RISK 7.1 - 11.0 MODERATE RISK >11.0 HIGH RISK Performed By: #### B MP #### [facility] [address] [place] [address] Dr. Herson Narvaez Cholesterol [Mass/Vol] 199 mg/dL Normal <=200 [facility] Comment on above: Performed By: #### B MP #### [facility] [address] [address] [address] Herson Narvaez Cholesterol in HDL [Mass/Vol] 70 mg/dL Critically high 40-60 [facility] Comment on above: Performed By: #### B MP #### [facility] [address] [address] [address] Herson Narvaez Cholesterol in LDL [Mass/Vol] 114.6 mg/dL Normal [facility] Comment on above: Performed By: #### B MP #### [facility] [address] [address] [address] Herson Narvaez Cholesterol.total/Liedy sterol in HDL [Mass ratio] 2.8 {ratio} Normal [facility] Comment on above: Performed By: #### B MP #### [facility] [address] [address] [address] Herson Narvaez HDL NORMAL > or = 60 mg/dl - LOW CARDIOVASCULAR RISK <40 mg/dl - HIGH CARDIOVASCULAR RISK Normal [facility] Comment on above: Performed By: #### B MP #### [facility] [address] [address] [address] Herson Narvaez LDL CALC NORMAL SEE BELOW Normal [facility] Comment on above: Result Comment: <100 mg/dl OPTIMAL 100 - 129 mg/dl NEAR OR ABOVE OPTIMAL 130 - 159 mg/dl BORDERLINE HIGH 160 - 189 mg/dl HIGH >190 mg/dl VERY HIGH Performed By: #### B MP #### [facility] [address] [address] [address] Herson Narvaez Triglyceride [Mass/Vol] 72 mg/dL Normal <=150 T [facility] Comment on above: Performed By: #### B MP #### [facility] [address] [address] [address] Herson Narvaez VLDL CALC 14.4 mg/dL Normal [facility] Comment on above: Performed By: #### B MP #### [facility] [address] [address] [address] Herson Narvaez PROF 14(COMP METB)on 022 Albumin [Mass/Vol] 3.9 g/dL Normal 3.4-5.0 [facility] Comment on above: Performed By: #### L IPID, CMP #### [facility] [address] [address] [address] Herson Narvaez Albumin/Globulin [Mass ratio] 1.1 {ratio} Normal [facility] Comment on above: Performed By: #### L IPID, CMP #### [facility] [address] [address] [address] Herson Narvaez ALP [Catalytic activity/Vol] 61 U/L Normal 46-116 [facility] Comment on above: Performed By: #### L IPID, CMP #### [facility] [address] [address] [address] Herson Narvaez ALT [Catalytic activity/Vol] 22 U/L Normal 16-63 [facility] Comment on above: Performed By: #### L IPID, CMP #### [facility] [address] [address] [address] Herson Narvaez Anion gap [Moles/Vol] 12.2 mmol/L Normal [facility] Comment on above: Performed By: #### L IPID, CMP #### [facility] [address] [place] [address] Dr. Herson Narvaez AST [Catalytic activity/Vol] 18 U/L Normal 15-37 [facility] Comment on above: Performed By: #### L IPID, CMP #### [facility] [address] [place] [address] Dr. Herson Narvaez Bilirubin [Mass/Vol] 0.5 mg/dL Normal 0.2-1.0 [facility] Comment on above: Performed By: #### L IPID, CMP #### [facility] [address] [place] [address] Dr. Herson Narvaez Calcium [Mass/Vol] 8.8 mg/dL Normal 8.5-10.1 [facility] Comment on above: Performed By: #### L IPID, CMP #### [facility] [address] [address] [address] Herson Narvaez Chloride [Moles/Vol] 105 mmol/L Normal 98-107 [facility] Comment on above: Performed By: #### L IPID, CMP #### [facility] [address] [address] [address] Herson Narvaez CO2 [Moles/Vol] 25.8 mmol/L Normal 21.0-32.0 [facility] Comment on above: Performed By: #### L IPID, CMP #### [facility] [address] [address] [address] Herson Narvaez Creatinine [Mass/Vol] 1.07 mg/dL Normal 0.70-1.30 [facility] Comment on above: Performed By: #### L IPID, CMP #### [facility] [address] [address] [address] Herson Narvaez EGFR-AF ROMANIAN >60 Normal >=60 [facility] Comment on above: Performed By: #### L IPID, CMP #### [facility] [address] [address] [address] Herson Narvaez EGFR-NON AF ROMANIAN >60 Normal >=60 [facility] Comment on above: Performed By: #### L IPID, CMP #### [facility] [address] [address] [address] Herson Narvaez Globulin (S) [Mass/Vol] 3.4 g/dL Normal [facility] Comment on above: Performed By: #### L IPID, CMP #### [facility] [address] [address] [address] Herson Narvaez Glucose [Mass/Vol] 113 mg/dL Critically high 74-106 [facility] Comment on above: Performed By: #### L IPID, CMP #### [facility] [address] [address] [address] Herson Narvaez Potassium [Moles/Vol] 4.0 mmol/L Normal 3.5-5.1 [facility] Comment on above: Performed By: #### L IPID, CMP #### [facility] [address] [address] [address] Herson Narvaez Protein [Mass/Vol] 7.3 g/dL Normal 6.4-8.2 [facility] Comment on above: Performed By: #### L IPID, CMP #### [facility] [address] [place] [address] Dr. Herson Narvaez Sodium [Moles/Vol] 139 mmol/L Normal 136-145 [facility] Comment on above: Performed By: #### L IPID, CMP #### [facility] [address] [place] [address] Dr. Herson Narvaez Urea nitrogen [Mass/Vol] 14.0 mg/dL Normal 7.0-18.0 [facility] Comment on above: Performed By: #### L IPID, CMP #### [facility] [address] [place] [address] Dr. Herson Narvaez Urea nitrogen/Creatinine [Mass ratio] 13.1 mg/mg Normal [facility] Comment on above: Performed By: #### L IPID, CMP #### [facility] [address] [place] [address] Dr. Herson Narvaez CBC AUTO DIFFon 12-11-2021 BASO # 0.0 103/ul Normal 0.0-0.1 [facility] Comment on above: Performed By: #### C BC #### [facility] [address] [place] [address] Dr. Herson Narvaez Basophils/100 WBC (Bld) 0.1 % Critically low 0.2-2.0 [facility] Comment on above: Performed By: #### C BC #### [facility] [address] [place] [address] Dr. Herson Narvaez EO # 0.0 103/ul Normal 0.0-0.7 [facility] Comment on above: Performed By: #### C BC #### [facility] [address] [place] [address] Dr. Herson Narvaez Eosinophils/100 WBC (Bld) 0.0 % Critically low 0.9-7.0 [facility] Comment on above: Performed By: #### C BC #### [facility] [address] [place] [address] Dr. Herson Narvaez Erythrocyte distribution width (RBC) [Ratio] 13.8 % Normal 11.0-15.0 [facility] Comment on above: Performed By: #### C BC #### [facility] [address] [address] [address] Herson Narvaez Hematocrit (Bld) [Volume fraction] 32.6 % Critically low 42.0-54.0 [facility] Comment on above: Performed By: #### C BC #### [facility] [address] [place] [address] Dr. Herson Narvaez Hemoglobin (Bld) [Mass/Vol] 10.9 g/dL Critically low 14.0-18.0 [facility] Comment on above: Performed By: #### C BC #### [facility] [address] [place] [address] Dr. Herson Narvaez IG # 0.11 10e3/ul Critically high 0.00-0.03 [facility] Comment on above: Performed By: #### C BC #### [facility] [address] [place] [address] Dr. Herson Narvaez IG % 0.5 % Normal 0.0-0.5 [facility] Comment on above: Performed By: #### C BC #### [facility] [address] [place] [address] Dr. Herson Narvaez LYMPH # 0.9 103/ul Critically low 1.2-3.8 [facility] Comment on above: Performed By: #### C BC #### [facility] [address] [place] [address] Dr. Herson Narvaez Lymphocytes/100 WBC (Bld) 4.6 % Critically low 20.5-60.0 [facility] Comment on above: Performed By: #### C BC #### [facility] [address] [place] [address] Dr. Herson Narvaez MANUAL DIFF REQ NO Normal [facility] Comment on above: Performed By: #### C BC #### [facility] [address] [place] [address] Dr. Herson Narvaez MCH (RBC) [Entitic mass] 30.5 pg Normal 25.9-34.0 [facility] Comment on above: Performed By: #### C BC #### [facility] [address] [address] [address] Herson Narvaez MCHC (RBC) [Mass/Vol] 33.4 g/dL Normal 29.9-35.2 [facility] Comment on above: Performed By: #### C BC #### [facility] [address] [address] [address] Herson Narvaez MCV (RBC) [Entitic vol] 91.3 fL Normal 80.0-94.0 [facility] Comment on above: Performed By: #### C BC #### [facility] [address] [address] [address] Herson Narvaez MONO # 1.5 103/ul Critically high 0.3-0.8 [facility] Comment on above: Performed By: #### C BC #### [facility] [address] [place] [address] Dr. Herson Narvaez Monocytes/100 WBC (Bld) 7.6 % Normal 1.7-12.0 [facility] Comment on above: Performed By: #### C BC #### [facility] [address] [address] [address] Herson Narvaez NEUT # 17.4 103/ul Critically high 1.4-6.5 [facility] Comment on above: Performed By: #### C BC #### [facility] [address] [place] [address] Dr. Herson Narvaez Neutrophils/100 WBC (Bld) 87.2 % Critically high 43.0-75.0 [facility] Comment on above: Performed By: #### C BC #### [facility] [address] [address] [address] Herson Narvaez Platelet mean volume (Bld) [Entitic vol] 9.3 fL Critically low 9.5-13.5 [facility] Comment on above: Performed By: #### C BC #### [facility] [address] [address] [address] Herson Narvaez PLT 224 103/ul Normal 150-450 [facility] Comment on above: Performed By: #### C BC #### [facility] [address] [place] [address] Dr. Herson Narvaez RBC 3.57 106/ul Critically low 4.70-6.10 [facility] Comment on above: Performed By: #### C BC #### [facility] [address] [place] [address] Dr. Herson Narvaez WBC 20.0 103/ul Critically high 4.0-11.0 [facility] Comment on above: Performed By: #### C BC #### [facility] [address] [place] [address] Dr. Herson Narvaez PROF CHEM 8 (BAS METB)on Anion gap [Moles/Vol] 12.0 mmol/L Normal [facility] Comment on above: Performed By: #### B MP #### [facility] [address] [place] [address] Dr. Herson Narvaez Calcium [Mass/Vol] 7.3 mg/dL Critically low 8.5-10.1 [facility] Comment on above: Performed By: #### B MP #### [facility] [address] [place] [address] Dr. Herson Narvaez Chloride [Moles/Vol] 109 mmol/L Critically high 98-107 [facility] Comment on above: Performed By: #### B MP #### [facility] [address] [place] [address] Dr. Herson Narvaez CO2 [Moles/Vol] 25.7 mmol/L Normal 21.0-32.0 [facility] Comment on above: Performed By: #### B MP #### [facility] [address] [place] [address] Dr. Herson Narvaez Creatinine [Mass/Vol] 1.48 mg/dL Critically high 0.70-1.30 [facility] Comment on above: Performed By: #### B MP #### [facility] [address] [place] [address] Dr. Herson Narvaez EGFR-AF ROMANIAN 58 mL/min/1.73m2 Critically low >=60 [facility] Comment on above: Performed By: #### B MP #### [facility] [address] [address] [address] Herson Narvaez EGFR-NON AF ROMANIAN 48 mL/min/1.73m2 Critically low >=60 [facility] Comment on above: Performed By: #### B MP #### [facility] [address] [address] [address] Herson Narvaez Glucose [Mass/Vol] 144 mg/dL Critically high 74-106 [facility] Comment on above: Performed By: #### B MP #### [facility] [address] [address] [address] Herson Narvaez Potassium [Moles/Vol] 4.7 mmol/L Normal 3.5-5.1 [facility] Comment on above: Performed By: #### B MP #### [facility] [address] [address] [address] Herson Narvaez Sodium [Moles/Vol] 142 mmol/L Normal 136-145 [facility] Comment on above: Performed By: #### B MP #### [facility] [address] [address] [address] Herson Narvaez Urea nitrogen [Mass/Vol] 19.0 mg/dL Critically high 7.0-18.0 [facility] Comment on above: Performed By: #### B MP #### [facility] [address] [address] [address] Herson Narvaez Urea nitrogen/Creatinine [Mass ratio] 12.8 mg/mg Normal [facility] Comment on above: Performed By: #### B MP #### [facility] [address] [address] [address] Herson Narvaez CBC AUTO DIFFon 12-10-2021 BASO # 0.0 103/ul Normal 0.0-0.1 [facility] Comment on above: Performed By: #### C BC #### [facility] [address] [address] [address] Herson Narvaez Basophils/100 WBC (Bld) 0.2 % Normal 0.2-2.0 [facility] Comment on above: Performed By: #### C BC #### [facility] [address] [place] [address] Dr. Herson Narvaez EO # 0.0 103/ul Normal 0.0-0.7 [facility] Comment on above: Performed By: #### C BC #### [facility] [address] [place] [address] Dr. Herson Narvaez Eosinophils/100 WBC (Bld) 0.1 % Critically low 0.9-7.0 [facility] Comment on above: Performed By: #### C BC #### [facility] [address] [place] [address] Dr. Herson Narvaez Erythrocyte distribution width (RBC) [Ratio] 13.3 % Normal 11.0-15.0 [facility] Comment on above: Performed By: #### C BC #### [facility] [address] [place] [address] Dr. Herson Narvaez Hematocrit (Bld) [Volume fraction] 33.6 % Critically low 42.0-54.0 [facility] Comment on above: Performed By: #### C BC #### [facility] [address] [place] [address] Dr. Herson Narvaez Hemoglobin (Bld) [Mass/Vol] 11.2 g/dL Critically low 14.0-18.0 [facility] Comment on above: Performed By: #### C BC #### [facility] [address] [place] [address] Dr. Herson Narvaez IG # 0.08 10e3/ul Critically high 0.00-0.03 [facility] Comment on above: Performed By: #### C BC #### [facility] [address] [place] [address] Dr. Herson Narvaez IG % 0.5 % Normal 0.0-0.5 [facility] Comment on above: Performed By: #### C BC #### [facility] [address] [place] [address] Dr. Herson Narvaez LYMPH # 1.1 103/ul Critically low 1.2-3.8 [facility] Comment on above: Performed By: #### C BC #### [facility] [address] [place] [address] Dr. Herson Narvaez Lymphocytes/100 WBC (Bld) 6.2 % Critically low 20.5-60.0 [facility] Comment on above: Performed By: #### C BC #### [facility] [address] [place] [address] Dr. Herson Narvaez MANUAL DIFF REQ NO Normal [facility] Comment on above: Performed By: #### C BC #### [facility] [address] [place] [address] Dr. Herson Narvaez MCH (RBC) [Entitic mass] 29.6 pg Normal 25.9-34.0 [facility] Comment on above: Performed By: #### C BC #### [facility] [address] [place] [address] Dr. Herson Narvaez MCHC (RBC) [Mass/Vol] 33.3 g/dL Normal 29.9-35.2 [facility] Comment on above: Performed By: #### C BC #### [facility] [address] [place] [address] Dr. Herson Narvaez MCV (RBC) [Entitic vol] 88.9 fL Normal 80.0-94.0 [facility] Comment on above: Performed By: #### C BC #### [facility] [address] [place] [address] Dr. Herson Narvaez MONO # 0.3 103/ul Normal 0.3-0.8 [facility] Comment on above: Performed By: #### C BC #### [facility] [address] [place] [address] Dr. Herson Narvaez Monocytes/100 WBC (Bld) 1.8 % Normal 1.7-12.0 [facility] Comment on above: Performed By: #### C BC #### [facility] [address] [place] [address] Dr. Herson Narvaez NEUT # 15.7 103/ul Critically high 1.4-6.5 [facility] Comment on above: Performed By: #### C BC #### [facility] [address] [address] [address] Herson Narvaez Neutrophils/100 WBC (Bld) 91.2 % Critically high 43.0-75.0 [facility] Comment on above: Performed By: #### C BC #### [facility] [address] [address] [address] Herson Narvaez Platelet mean volume (Bld) [Entitic vol] 9.1 fL Critically low 9.5-13.5 [facility] Comment on above: Performed By: #### C BC #### [facility] [address] [address] [address] Herson Narvaez PLT 229 103/ul Normal 150-450 [facility] Comment on above: Performed By: #### C BC #### [facility] [address] [address] [address] Herson Narvaez RBC 3.78 106/ul Critically low 4.70-6.10 [facility] Comment on above: Performed By: #### C BC #### [facility] [address] [address] [address] Herson Narvaez WBC 17.1 103/ul Critically high 4.0-11.0 [facility] Comment on above: Performed By: #### C BC #### [facility] [address] [place] [address] Dr. Herson Narvaez PROF CHEM 8 (BAS METB)on Anion gap [Moles/Vol] 11.0 mmol/L Normal [facility] Comment on above: Performed By: #### B MP #### [facility] [address] [place] [address] Dr. Herson Narvaez Calcium [Mass/Vol] 7.1 mg/dL Critically low 8.5-10.1 [facility] Comment on above: Performed By: #### B MP #### [facility] [address] [place] [address] Dr. Herson Narvaez Chloride [Moles/Vol] 104 mmol/L Normal 98-107 [facility] Comment on above: Performed By: #### B MP #### [facility] [address] [address] [address] Herson Narvaez CO2 [Moles/Vol] 24.9 mmol/L Normal 21.0-32.0 [facility] Comment on above: Performed By: #### B MP #### [facility] [address] [address] [address] Herson Narvaez Creatinine [Mass/Vol] 1.22 mg/dL Normal 0.70-1.30 [facility] Comment on above: Performed By: #### B MP #### [facility] [address] [address] [address] Herson Narvaez EGFR-AF ROMANIAN >60 Normal >=60 [facility] Comment on above: Performed By: #### B MP #### [facility] [address] [place] [address] Dr. Herson Narvaez EGFR-NON AF ROMANIAN 60 mL/min/1.73m2 Normal >=60 [facility] Comment on above: Performed By: #### B MP #### [facility] [address] [address] [address] Herson Narvaez Glucose [Mass/Vol] 185 mg/dL Critically high 74-106 [facility] Comment on above: Performed By: #### B MP #### [facility] [address] [place] [address] Dr. Herson Narvaez Potassium [Moles/Vol] 3.9 mmol/L Normal 3.5-5.1 [facility] Comment on above: Performed By: #### B MP #### [facility] [address] [address] [address] Herson Narvaez Sodium [Moles/Vol] 136 mmol/L Normal 136-145 [facility] Comment on above: Performed By: #### B MP #### [facility] [address] [address] [address] Herson Narvaez Urea nitrogen [Mass/Vol] 18.0 mg/dL Normal 7.0-18.0 [facility] Comment on above: Performed By: #### B MP #### [facility] [address] [address] [address] Herson Narvaez Urea nitrogen/Creatinine [Mass ratio] 14.7 mg/mg Normal [facility] Comment on above: Performed By: #### B MP #### [facility] [address] [address] [address] Herson Narvaez Covid-19 PCR (CVDTB)on 11-13 SARS-CoV-2 (COVID-19) RNA SHANNEN+probe Ql (Unsp spec) Not detected Normal NOT DETECTED [facility] Comment on above: Result Comment: This test is not yet approved or cleared by the [place] FDA. When there are no FDA-approved or cleared tests available, and other criteria are met, FDA can make tests available under an emergency access mechanism called an Emergency Use Authorization (EUA). The EUA for this test is supported by the [place] of Health and Human Service's (HHS's) declaration [...] consistent with SARS-CoV-2. Performed By: #### C VDTBH #### [facility] [address] [address] [address] Herson Narvaez TYPE AND SCREENon 12-07-2021 TYPE AND SCREEN Negative Normal [facility] Comment on above: Performed By: #### B MP #### [facility] [address] [address] [address] Herson Narvaez CBC AUTO DIFFon 11-29-2021 BASO # 0.1 103/ul Normal 0.0-0.1 [facility] Comment on above: Performed By: #### C BC #### [facility] [address] [address] [address] Herson Narvaez Basophils/100 WBC (Bld) 1.2 % Normal 0.2-2.0 [facility] Comment on above: Performed By: #### C BC #### [facility] [address] [place] [address] Dr. Herson Narvaez EO # 0.4 103/ul Normal 0.0-0.7 [facility] Comment on above: Performed By: #### C BC #### [facility] [address] [place] [address] Dr. Herson Narvaez Eosinophils/100 WBC (Bld) 5.4 % Normal 0.9-7.0 [facility] Comment on above: Performed By: #### C BC #### [facility] [address] [place] [address] Dr. Herson Narvaez Erythrocyte distribution width (RBC) [Ratio] 13.6 % Normal 11.0-15.0 [facility] Comment on above: Performed By: #### C BC #### [facility] [address] [place] [address] Dr. Herson Narvaez Hematocrit (Bld) [Volume fraction] 43.2 % Normal 42.0-54.0 [facility] Comment on above: Performed By: #### C BC #### [facility] [address] [place] [address] Dr. Herson Narvaez Hemoglobin (Bld) [Mass/Vol] 14.6 g/dL Normal 14.0-18.0 [facility] Comment on above: Performed By: #### C BC #### [facility] [address] [place] [address] Dr. Herson Narvaez IG # 0.02 10e3/ul Normal 0.00-0.03 [facility] Comment on above: Performed By: #### C BC #### [facility] [address] [place] [address] Dr. Herson Narvaez IG % 0.3 % Normal 0.0-0.5 [facility] Comment on above: Performed By: #### C BC #### [facility] [address] [place] [address] Dr. Herson Narvaez LYMPH # 2.3 103/ul Normal 1.2-3.8 [facility] Comment on above: Performed By: #### C BC #### [facility] [address] [place] [address] Dr. Herson Narvaez Lymphocytes/100 WBC (Bld) 33.2 % Normal 20.5-60.0 [facility] Comment on above: Performed By: #### C BC #### [facility] [address] [place] [address] Dr. Herson Narvaez MANUAL DIFF REQ NO Normal [facility] Comment on above: Performed By: #### C BC #### [facility] [address] [place] [address] Dr. Herson Narvaez MCH (RBC) [Entitic mass] 30.0 pg Normal 25.9-34.0 [facility] Comment on above: Performed By: #### C BC #### [facility] [address] [place] [address] Dr. Herson Narvaez MCHC (RBC) [Mass/Vol] 33.8 g/dL Normal 29.9-35.2 [facility] Comment on above: Performed By: #### C BC #### [facility] [address] [place] [address] Dr. Herson Narvaez MCV (RBC) [Entitic vol] 88.7 fL Normal 80.0-94.0 [facility] Comment on above: Performed By: #### C BC #### [facility] [address] [place] [address] Dr. Herson Narvaez MONO # 0.6 103/ul Normal 0.3-0.8 [facility] Comment on above: Performed By: #### C BC #### [facility] [address] [place] [address] Dr. Herson Narvaez Monocytes/100 WBC (Bld) 8.3 % Normal 1.7-12.0 [facility] Comment on above: Performed By: #### C BC #### [facility] [address] [place] [address] Dr. Herson Narvaez NEUT # 3.6 103/ul Normal 1.4-6.5 [facility] Comment on above: Performed By: #### C BC #### [facility] [address] [address] [address] Herson Narvaez Neutrophils/100 WBC (Bld) 51.6 % Normal 43.0-75.0 [facility] Comment on above: Performed By: #### C BC #### [facility] [address] [place] [address] Dr. Herson Narvaez Platelet mean volume (Bld) [Entitic vol] 9.0 fL Critically low 9.5-13.5 [facility] Comment on above: Performed By: #### C BC #### [facility] [address] [address] [address] Herson Narvaez PLT 231 103/ul Normal 150-450 [facility] Comment on above: Performed By: #### C BC #### [facility] [address] [place] [address] Dr. Herson Narvaez RBC 4.87 106/ul Normal 4.70-6.10 [facility] Comment on above: Performed By: #### C BC #### [facility] [address] [place] [address] Dr. Herson Narvaez WBC 6.9 103/ul Normal 4.0-11.0 [facility] Comment on above: Performed By: #### C BC #### [facility] [address] [place] [address] Dr. Herson Narvaez LIVER PROFILEon 11-29-2021 Albumin [Mass/Vol] 3.7 g/dL Normal 3.4-5.0 [facility] Comment on above: Performed By: #### L GERMÁN BMP #### [facility] [address] [place] [address] Dr. Herson Narvaez Albumin/Globulin [Mass ratio] 1.2 {ratio} Normal [facility] Comment on above: Performed By: #### L GERMÁN, BMP #### [facility] [address] [place] [address] Dr. Herson Narvaez ALP [Catalytic activity/Vol] 52 U/L Normal 46-116 [facility] Comment on above: Performed By: #### L IVER, BMP #### [facility] [address] [address] [address] Herson Narvaez ALT [Catalytic activity/Vol] 30 U/L Normal 16-63 [facility] Comment on above: Performed By: #### L IVER, BMP #### [facility] [address] [address] [address] Herson Narvaez AST [Catalytic activity/Vol] 16 U/L Normal 15-37 [facility] Comment on above: Performed By: #### L IVER, BMP #### [facility] [address] [place] [address] Dr. Herson Narvaez BILI, CONJUGATED 0.1 mg/dL Normal 0.0-0.3 [facility] Comment on above: Performed By: #### L IVER, BMP #### [facility] [address] [place] [address] Dr. Herson Narvaez Bilirubin [Mass/Vol] 0.5 mg/dL Normal 0.2-1.3 [facility] Comment on above: Performed By: #### L IVER, BMP #### [facility] [address] [place] [address] Dr. Herson Narvaez Globulin (S) [Mass/Vol] 3.2 g/dL Normal [facility] Comment on above: Performed By: #### L IVER, BMP #### [facility] [address] [place] [address] Dr. Herson Narvaez Protein [Mass/Vol] 6.9 g/dL Normal 6.1-8.2 [facility] Comment on above: Performed By: #### L IVER, BMP #### [facility] [address] [place] [address] Dr. Herson Narvaez PROF CHEM 8 (BAS METB)on Anion gap [Moles/Vol] 14.0 mmol/L Normal [facility] Comment on above: Performed By: #### L IVER, BMP #### [facility] [address] [place] [address] Dr. Herson Narvaez Calcium [Mass/Vol] 8.5 mg/dL Normal 8.5-10.1 [facility] Comment on above: Performed By: #### L IVER, BMP #### [facility] [address] [place] [address] Dr. Herson Narvaez Chloride [Moles/Vol] 106 mmol/L Normal 98-107 [facility] Comment on above: Performed By: #### L IVER, BMP #### [facility] [address] [place] [address] Dr. Herson Narvaez CO2 [Moles/Vol] 26.3 mmol/L Normal 22.0-30.0 [facility] Comment on above: Performed By: #### L IVER, BMP #### [facility] [address] [place] [address] Dr. Herson Narvaez Creatinine [Mass/Vol] 0.98 mg/dL Normal 0.66-1.25 [facility] Comment on above: Performed By: #### L IVER, BMP #### [facility] [address] [place] [address] Dr. Herson Narvaez EGFR-AF ROMANIAN >94 Normal >=60 [facility] Comment on above: Performed By: #### L IVER, BMP #### [facility] [address] [place] [address] Dr. Herson Narvaez EGFR-NON AF ROMANIAN >77 Normal >=60 [facility] Comment on above: Performed By: #### L IVER, BMP #### [facility] [address] [place] [address] Dr. Herson Narvaez Glucose [Mass/Vol] 95 mg/dL Normal 74-106 [facility] Comment on above: Performed By: #### L IVER, BMP #### [facility] [address] [place] [address] Dr. Herson Narvaez Potassium [Moles/Vol] 4.3 mmol/L Normal 3.4-5.0 [facility] Comment on above: Performed By: #### L IVER, BMP #### [facility] [address] [place] [address] Dr. Herson Narvaez Sodium [Moles/Vol] 142 mmol/L Normal 137-145 [facility] Comment on above: Performed By: #### L GERMÁN, BMP #### [facility] [address] [place] [address] Dr. Herson Narvaez Urea nitrogen [Mass/Vol] 20.0 mg/dL Critically high 7.0-18.0 [facility] Comment on above: Performed By: #### L GERMÁN, BMP #### [facility] [address] [place] [address] Dr. Herson Narvaez Urea nitrogen/Creatinine [Mass ratio] 20.4 mg/mg Normal [facility] Comment on above: Performed By: #### L GERMÁN BMP #### [facility] [address] [place] [address] Dr. Herson Narvaez PROTIMEon 11-29-2021 INR Coag (PPP) [Relative time] 1.08 {INR} Normal [facility] Comment on above: Performed By: #### B MP #### [facility] [address] [place] [address] Dr. Herson Narvaez INR GUIDELINES SEE BELOW Normal [facility] Comment on above: Result Comment: MODESTA RED INR: 2.0 - 3.0 CONDITIONS NOT LISTED BELOW 2.5 - 3.5 FOR PROSTHETIC HEART VALVE REPLACEMENT 2.5 - 3.5 RECURRENT THROMBOSIS Performed By: #### B MP #### [facility] [address] [place] [address] Dr. Herson Narvaez PT Coag (PPP) [Time] 11.6 s Normal 9.0-11.6 [facility] Comment on above: Performed By: #### B MP #### [facility] [address] [place] [address] Dr. Herson Narvaez PTTon 11-29-2021 aPTT Coag (Bld) [Time] 23.9 s Normal 22.3-36.2 [facility] Comment on above: Performed By: #### B MP #### [facility] [address] [place] [address] Dr. Herson Narvaez Vital Signs Date Time Vital Sign Value Performing Clinician Facility 10-07-2024 14:35-0500 Body height 172.72 cm [facility] 10-07-2024 14:35-0500 Body mass index (BMI) [Ratio] 19.5 kg/m2 [facility] 10-07-2024 14:35-0500 Body weight 58.28 kg [facility] 10-07-2024 14:35-0500 Diastolic blood pressure 96 mm[Hg] [facility] 10-07-2024 14:35-0500 Heart rate 125 /min [facility] 10-07-2024 14:35-0500 Respiratory rate 12 /min [facility] 10-07-2024 14:35-0500 Systolic blood pressure 149 mm[Hg] [facility] 06-26-2024 14:37-0500 Body height 172.72 cm Pardeep Ball DO Work Phone: [facility] 06-26-2024 14:37-0500 Body mass index (BMI) [Ratio] 20.9 kg/m2 Pardeep Ball DO Work Phone: [facility] 06-26-2024 14:37-0500 Body weight 62.65 kg Pardeep Ball DO Work Phone: [facility] 06-26-2024 14:37-0500 Diastolic blood pressure 89 mm[Hg] Pardeep Ball DO Work Phone: [facility] 06-26-2024 14:37-0500 Heart rate 98 /min Pardeep Ball DO Work Phone: [facility] 06-26-2024 14:37-0500 Respiratory rate 12 /min Pardeep Ball DO Work Phone: [facility] 06-26-2024 14:37-0500 Systolic blood pressure 136 mm[Hg] Pardeep Ball DO Work Phone: [facility] 05-28-2024 12:10-0400 Diastolic blood pressure 84 mm[Hg] DO Pardeep Ball Work Phone: [facility] 05-28-2024 12:10-0400 Heart rate 72 /min DO Pardeep Ball Work Phone: [facility] 05-28-2024 [id number] Respiratory rate 18 /min DO Pardeep Ball Work Phone: [facility] 05-28-2024 12:10-0400 SaO2% (BldA) [Mass fraction] 100 % DO Pardeep Ball Work Phone: [facility] 05-28-2024 12:[id number] Systolic blood pressure 128 mm[Hg] DO Pardeep Ball Work Phone: [facility] 05-28-2024 10:21040 Body height 172.72 cm DO Pardeep Ball Work Phone: [facility] 05-28-2024 10:040 Body temperature 98.8 [degF] DO Pardeep Ball Work Phone: [facility] 05-28-2024 10:21040 Body weight 63.5 kg DO Pardeep Ball Work Phone: [facility] 05-20-2024 08:57-0400 Body height 172.72 cm [facility] 05-20-2024 08:57-0400 Body mass index (BMI) [Ratio] 20.2 kg/m2 [facility] 05-20-2024 08:57-0400 Body weight 60.49 kg [facility] 05-20-2024 08:57-0400 Diastolic blood pressure 79 mm[Hg] [facility] 05-20-2024 08:57-0400 Heart rate 54 /min [facility] 05-20-2024 08:57-0400 Respiratory rate 12 /min [facility] 05-20-2024 08:57-0400 Systolic blood pressure 133 mm[Hg] [facility] 04-22-2024 11:39-0400 Body height 172.72 cm [facility] 04-22-2024 11:39-0400 Body mass index (BMI) [Ratio] 20.9 kg/m2 [facility] 04-22-2024 11:39-0400 Body weight 62.65 kg [facility] 04-22-2024 11:39-0400 Diastolic blood pressure 79 mm[Hg] [facility] 04-22-2024 11:39-0400 Heart rate 104 /min [facility] 04-22-2024 11:39-0400 Respiratory rate 12 /min [facility] 04-22-2024 11:39-0400 Systolic blood pressure 115 mm[Hg] [facility] 01-01-2024 11:00-0400 Blood Pressure Location Isidorosoumya GAITAN [facility] 01-01-2024 11:00-0400 Diastolic blood pressure 81 mm[Hg] Isidorosoumya GAITAN [facility] 01-01-2024 11:00-0400 Heart rate 76 /min Isidorosoumya GAITAN [facility] 01-01-2024 11:00-0400 Systolic blood pressure 132 mm[Hg] Isidoro GAITAN [facility] 09-18-2023 08:30-0500 Body height 172.72 cm Pardeep Ball Other [facility] Other 09-18-2023 08:30-0500 Body mass index (BMI) [Ratio] 27.76 kg/m2 Pardeep Ball Other [facility] [employer] Other 09-18-2023 08:30-0500 Body weight 82.83 kg Pardeep Ball Other [facility] Other 09-18-2023 08:30-0500 Diastolic blood pressure 88 mm[Hg] Pardeep Ball Other [facility] Other 09-18-2023 08:30-0500 Respiratory rate 12 /min Pardeep Ball Other [employer] Other 09-18-2023 08:30-0500 Systolic blood pressure 131 mm[Hg] Pardeep Ball Other [employer] Other 05-17-2023 08:30-0400 Body height 172.72 cm Pardeep Ball Other [employer] Other 05-17-2023 08:30-0400 Body mass index (BMI) [Ratio] 27.43 kg/m2 Pardeep Ball Other [employer] Other 05-17-2023 08:30-0400 Body weight 81.83 kg Pardeep Ball Other [employer] Other 05-17-2023 08:30-0400 Diastolic blood pressure 102 mm[Hg] Pardeep Ball Other [employer] Other 05-17-2023 08:30-0400 Respiratory rate 12 /min Pardeep Ball Other [employer] Other 05-17-2023 08:30-0400 Systolic blood pressure 162 mm[Hg] Pardeep Ball Other [employer] Other 04-24-2023 13:47-0400 Blood Pressure Location Isidoro GAITAN [facility] 04-24-2023 13:47-0400 Body temperature 98.24 [degF] Isidoro GAITAN [facility] 04-24-2023 13:47-0400 Diastolic blood pressure 82 mm[Hg] Isidoro GAITAN [facility] 04-24-2023 13:47-0400 Heart rate 84 /min Isidoro GAITAN [facility] 04-24-2023 13:47-0400 Systolic blood pressure 118 mm[Hg] Isidoro GAITAN [facility] 09-12-2022 10:45-0500 Blood Pressure Location Isidoro GATIAN [facility] 09-12-2022 10:45-0500 Diastolic blood pressure 90 mm[Hg] Isidoro GAITAN [facility] 09-12-2022 10:45-0500 Heart rate 72 /min Isidoro GAITAN [facility] 09-12-2022 10:45-0500 Respiratory rate 16 /min Isidoro GAITAN [facility] 09-12-2022 10:45-0500 Systolic blood pressure 140 mm[Hg] Isidoro GAITAN [facility] 01-14-2022 09:33-0400 Blood Pressure Location Isidoro GAITAN [facility] 01-14-2022 09:33-0400 Diastolic blood pressure 74 mm[Hg] Isidoro GAITAN [facility] 01-14-2022 09:33-0400 Heart rate 61 /min Isidoro GAITAN [facility] 01-14-2022 09:33-0400 Respiratory rate 16 /min Isidoro GAITAN [facility] 01-14-2022 09:33-0400 Systolic blood pressure 121 mm[Hg] Isidoro GAITAN [facility] 12-20-2021 09:35-0400 Blood Pressure Location Isidoro GAITAN [facility] 12-20-2021 09:35-0400 Diastolic blood pressure 80 mm[Hg] Isidoro [facility] [facility]21 09:35-0400 Heart rate 89 /min [facility]idoro GAITAN [facility] 12-20-2021 09:35-0400 Systolic blood pressure 120 mm[Hg] Isidoro GAITAN [facility] 12-17-2021 10:03-0400 Blood Pressure Location Isidoro GAITAN [facility] 12-17-2021 10:03-0400 Diastolic blood pressure 83 mm[Hg] Isidoro GAITAN [facility] 12-17-2021 10:03-0400 Heart rate 87 /min Isidoro GAITAN [facility] 12-17-2021 10:03-0400 Respiratory rate 16 /min Isidoro GAITAN [facility] 12-17-2021 10:03-0400 Systolic blood pressure 132 mm[Hg] Isidoro GAITAN [facility] 11-01-2021 12:49-0400 Blood Pressure Location Isidorosoumya GAITAN [facility] [place] 11-01-2021 12:49-0400 Diastolic blood pressure 83 mm[Hg] Isidorosoumya GAITAN [facility] 11-01-2021 12:49-0400 Heart rate 85 /min Isidoro GAITAN [facility] 11-01-2021 12:49-0400 Respiratory rate 16 /min Isidoro GAITAN [facility] 11-01-2021 12:49-0400 Systolic blood pressure 118 mm[Hg] Isidoro GAITAN [facility] Encounters Encounter Date Encounter Type Care Provider Facility Start: 05-30-2025 ambulatory Isidoro GAITAN Facili ty:[facility] [place] Start: 01-03-2025 ambulatory Isidoro R GAITAN Facili ty:[facility] [place] Start: 10-07-2024 End: 10-07-2024 ambulatory [facility] Work Phone: Start: 10-07-2024 End: 10-07-2024 Patient encounter procedure [facility] Work Phone: Start: 06-26-2024 End: 06-26-2024 ambulatory Pardeep Mclaughlin DO Work Phone: [facility] Work Phone: Start: 06-26-2024 End: 06-26-2024 Patient encounter procedure Pardeep Mclaughlin DO Work Phone: [facility] Work Phone: Start: 05-28-2024 Non-patient / Non-visit Benjam in Arnoldo DO Work Phone: [facility] Work Phone: Start: 05-28-2024 Non-patient / Non-visit DO Faizan Mclaughlin Work Phone: [facility] Work Phone: Start: 05-28-2024 End: 05-28-2024 Admission to same day surgery center DO Pardeep Mclaughlin Work Phone: [facility] Work Phone: Start: 05-28-2024 End: 05-28-2024 ambulatory DO Pardeep Mclaughlin Work Phone: [facility] Work Phone: Start: 05-21-2024 Non-patient / Non-visit DO Faizan Mclaughlin Work Phone: [facility] Work Phone: Start: 05-20-2024 End: 05-20-2024 ambulatory [facility] Work Phone: Start: 05-20-2024 End: 05-20-2024 Patient encounter procedure [facility] Work Phone: Start: 05-17-2024 Non-patient / Non-visit [facility] Work Phone: Start: 04-25-2024 Non-patient / Non-visit [facility] Work Phone: Start: 04-22-2024 End: 04-22-2024 Patient encounter procedure [facility] Work Phone: Start: 01-01-2024 End: 01-01-2024 Patient encounter procedure Isidoro GAITAN [facility] Start: 09-18-2023 End: 09-18-2023 ambulatory Pardeep Mclaughlin Other [employer] Other Start: 09-18-2023 Office outpatient vi sit 25 minutes Pardeep Mclaughlin [facility] Start: 08-18-2023 End: 08-18-2023 ambulatory Pardeep Mclaughlin Other [employer] Other Start: 08-18-2023 Telephone encounter Pardeep Mclaughlin [facility] Start: 07-31-2023 End: 07-31-2023 ambulatory Pardeep Mclaughlin Other [employer] Other Start: 07-31-2023 Telephone encounter Pardeep Mclaughlin [facility] [employer] Start: 06-26-2023 End: 06-26-2023 ambulatory Pardeep Mclaughlin Other [employer] Other Start: 06-26-2023 Telephone encounter Pardeep Mclaughlin [facility] Start: 05-31-2023 End: 05-31-2023 ambulatory Pardeep Mclaughlin Other [employer] Other Start: 05-31-2023 Telephone encounter Pardeep Mclaughlin [facility] Start: 05-17-2023 End: 05-17-2023 ambulatory Pardeep Mclaughlin Other [employer] Other Start: 05-17-2023 Patient encounter procedure Pardeep Mclaughlin [facility] Start: 04-24-2023 End: 04-24-2023 Patient encounter procedure Isidoro GAITAN [facility] Start: 09-12-2022 End: 09-12-2022 Patient encounter procedure Isidoro GAITAN [facility] Start: 09-08-2022 End: 09-09-[address] ISIDORO GAITAN . Facility:[facility] Start: 05-20-2022 Encounter for genera l adult medical examination without abnormal findings DR PARDEEP MCLAUGHLIN [facility] Start: 05-17-2022 End: 05-18-[address] PARDEEP MCLAUGHLIN Facility:[facility] Start: 05-17-2022 End: 05-18-2022 Encounter for general adult medical examination without abnormal findings DR PARDEEP MCLAUGHLIN Facility:[facility] Start: 05-05-2022 End: 05-06-[address] PARDEEP MCLAUGHLIN Facility:[facility] Start: 01-14-2022 End: 01-14-2022 Patient encounter procedure Isidoro GAIATN [facility] Start: 01-12-2022 End: 01-13-[address] ISIDORO GAITAN . Facility:[facility] Start: 12-20-2021 End: 12-20-2021 Patient encounter procedure Isidoro GAITAN [facility] Start: 12-17-2021 End: 12-17-2021 Patient encounter procedure Isidoro GAITAN [facility] Start: 12-15-2021 End: 12-15-2021 Patient encounter procedure Isidoro GAITAN [facility] Start: 12-10-2021 End: 12-11-2021 Evaluation and management of inpatient DR ISIDORO GAITAN . Facility:[facility] Start: 12-09-2021 Encounter for preprocedural laboratory examination DR ISIDORO GAITAN . [facility] Start: 12-07-2021 End: 12-08-[address] ISIDORO GAITAN . Facility:[facility] Start: 12-07-2021 End: 12-08-2021 Encounter for preprocedural laboratory examination DR ISIDORO GAITAN . Facility:[facility] Start: 12-02-2021 Encounter for preprocedural cardiovascular examination DR ISIDORO GAITAN . [facility] Start: 11-29-2021 End: 11-30-[address] ISIDORO GAITAN . Facility:[facility] Start: 11-01-2021 End: 11-01-2021 Patient encounter procedure Isidoro GAITAN [facility] Procedures Date Procedure Procedure Detail Performing Clinician Start: 05-28-2024 Esophagogastroduodenoscopy DO Pardeep blackburn Work Phone: Start: 04-25-2024 E coli Shiga Toxin EIA Start: 04-25-2024 Salmonella/Shigella Screen Start: 09-08-[address] ISIDORO GAITAN . Comment on above: Performed By: #### PSAD #### [facility] [address] [place] [address] Dr. Herson Narvaez Start: 05-05-[address] ISIDORO GAITAN . Comment on above: Performed By: #### PSAD #### [facility] [address] [place] [address] Dr. Herson Narvaez Start: 01-12-[address] ISIDORO GAITAN . Comment on above: Performed By: #### BMP #### [facility] [address] [place] [address] Dr. Herson Narvaez Start: 12-10-2021 Resection of Pelvis Lymphatic, Open Approach DR ISIDORO GAITAN . Start: 12-10-2021 Resection of Prostate, Open Approach DR ISIDORO GAITAN . Start: 12-10-2021 Radical prostatectomy Isidoro GAITAN Start: 10-19-2021 Transrectal biopsy of prostate using ultrasound guidance Isidoro GAITAN Colonoscopy Isidoro GAITAN Plan of Treatment Date Care Activity Detail Author Start: 05-28-2024 [facility] Comprehensive metabo lic 2000 panel - Serum or Plasma [facility] Patient Education Know your Meds [facility] Work Phone: [facility] Immunizations Immunization Date Immunization Notes Care Provider Fa tristin 06-30-2021 SARS-CoV-2 (COVID-19 ) Ad26 vaccine, recombinant Isidoro GAITAN [facility] 05-19-2021 SARS-CoV-2 (COVID-19 ) mRNA BNT-162b2 vax Isidoro GAITAN [facility] 2021 SARS-CoV-2 (COVID-19 ) mRNA BNT-162b2 vax Isidoro GAITAN [facility] Comment on above: Result Comment: Pt h ad 2 shots 04-28-2021 SARS-CoV-2 (COVID-19 ) mRNA BNT-162b2 vax Isidoro GAITAN [facility] NEGATED: Highlighted row has not occurred!12-20-2021 influenza virus vaccine, unspecified formulation Isidoro GAITAN [facility] Payers Date Payer Category Payer Self-pay [id number] 2023 Unknown [id number] 1959 Unknown [id number] 1961 Unknown [id number] 1960 Unknown [id number] 2.16.84 [id number] 1960 Unknown [id number] 2.16.84 [id number] 1958 Unknown [id number] 2.16.84 [id number] 1960 Unknown [id number] 2.16.84 [id number] 1960 Unknown [id number] 2.16.84 [id number] 1960 Unknown [id number] 2.16.84 [id number] 1960 Unknown [id number] 2.16.84 [id number] 1960 Unknown [id number] 2.16.8 [id number] 1960 Unknown [id number] 2.16.8 [id number] Unknown [id number] 2.16.8 [id number] Social History Date Type Detail Facility Start: 11-01-2021 End: 05-28-2024 Tobacco smoking status Never smoked tobacco (finding) [facility] Sex Assigned At Male [facility] Tobacco smoking status Never [facility] Start: 1960 Sex Assigned At Male [facility] Start: 06-26-2024 End: 10-07-2024 Sex Male (finding) [facility] Goals Date Patient Goal Desired Activity /State Functional Status Date Assessment Result Facility 01-01-2024 Functional Status N/A [facility] 04-24-2023 Functional Status N/A [facility] 09-12-2022 Functional Status N/A [facility] [place] Clinical Notes 11-01-2021 to 05-28-2024 Note Date & Type Note Facility 05-28-2024 Procedure note [facility] 04-22-2024 Evaluation note Diagnosis Onset Date Resolution Elevated cholesterol acute Apr ember 2023 11:23am HERI (generalized anxiety disorder) acute April 22, 2024 11:23am Primary hypertension acute Apr emb2023 11:23am Prostate cancer acute April 22, 2024 11:23am Weight loss, abnormal acute Sep tember 2023 11:23am Elevated cholesterol acute Octo 2023 8:53am HERI (generalized anxiety disorder) acute May 20 8:53am Glucosuria acute May 20 8:53am Primary hypertension acute Mayo 2023 8:53am Prostate cancer acute May 202023 8:53am Weight loss, abnormal acute May andreina 2023 8:53am Medicare annual wellness visit, initial noneactive May 20, 2024 8:53am Elevated cholesterol acute Nove mber 2023 2:23pm HERI (generalized anxiety disorder) acute June 26, 2024 2:23pm Glucosuria acute June 26, 2024 2:23pm Primary hypertension acute mber 2023 2:23pm Weight loss, abnormal acute Jun emb2023 2:23pm [facility] Work Phone: [phone] 681-501905-20-2024 Hospital Discharge instructions Patient Education 01/01/2024 11:20:08 Prostate Cancer Screening Prostate Cancer Screening Prostate cancer screening is testing that is done to check for the presence of prostate cancer in men. The prostate gland is a walnut-sized gland that is located below the bladder and in front of therectum in males. The function of the prostate is to add fluid to semen during ejaculation. Prostatecancer is one of the most common types of cancer in men. Who should have prostate cancer screening? Screening recommendations vary based on age and other risk factors, as well as between the professional organizations who make the recommendations. In general, screening is recommended if: You are age 50 to 70 and have an average risk for prostate cancer. You should talk with your healthcare provider about your need for screening and [...] diagnosed with prostate cancer. The risk is higherif your family member's cancer occurred at an early age or if you have multiple family members withprostate cancer at an early age. ?Being a [...] is a blood test called the prostate-specific antigen(PSA) test. PSA is a protein that is [...] treatment? Where to find more information The [employer] Cancer Society: www.cancer.org [employer] Association: www.auanet.org Contact a health care [...] the recommended screening test for prostate cancer, butit has associated risks. Discuss the risks and [...] provider. Document Revised: 01/24/2022 Document Reviewed: 01/24/2022 [employer] Patient Education 2022 RunAlong. Follow Up Care 04/24/2023 15:19:29 With:TRA NAGEL, Isidoro Deshpande, URL Address: [facility] [address], [place] [address]- [phone] When: Unknown Comments:1 yr w/ PSA [facility] [place] 02-05-2024 Evaluation note* Encounter Date Diagnosis Assessment Notes Treatment Notes Treatment Clinical Notes Sep, Elevated cholesterol (ICD-10 - E78.00) Instructed on diet and exercise.Discussed the beneficial effects of lowering cholesterol in [...] - Z12.11) Referral sent to schedule colonoscopy [employer] Other 11-13-2023 Evaluation note* Encounter Date Diagnosis Assessment Notes Treatment Notes Treatment Clinical Notes Jun, Primary hypertension (ICD-10 - I10) [employer] Other 10-18-2023 Evaluation note* Encounter Date Diagnosis Assessment Notes Treatment Notes Treatment Clinical Notes May, Primary hypertension (ICD-10 - I10) [employer] Other 10-04-2023 Evaluation note* Encounter Date Diagnosis [...] or rhinorrhea Refer for Audiogram and ENT eval [employer] Other 09-11-2023 Hospital Discharge instructions Patient Education [...] under a microscope. This is called the Marti score and the total score can range from 6 10, indicating how likely it is that the cancer will spread (metastasize) to other parts of the body. The higher the score, the greater thelikelihood that the cancer will spread. Blue Bell 6 or lower: This indicates that the cancer cells look similar to normal prostate cells (well differentiated). Blue Bell 7: This indicates that the cancer cells look somewhat similar to normal prostate cells (moderately differentiated). Blue Bell 8, 9, or 10: This indicates that [...] stress of having cancer. General instructions Take wjzu-tab-buoypyw and prescription medicines only as told by your health care provider. If you have to go to the hospital, notify your cancer specialist (oncologist). Keep all follow-up visits. This is important. Where to find more information [employer] Society: www.cancer.org [place] Society of Clinical Oncology: www.cancer.net National Cancer Ararat: www.cancer.gov Contact a health care provider if: [...] provider. Document Revised: 10/27/2021 Document Reviewed: 10/27/2021 [employer] Patient Education 2022 RunAlong. Follow Up Care 09/12/2022 11:45:29 With:TRA NAGEL, Isidoro Deshpande, URL Address: [facility] [address], [place] [address] [phone] When:Within 6 Month(s) Comments:PSA [facility] [place] 01-30-2023 Hospital Discharge instructions Patient Education [...] 07/17/2013 Document Revised: 03/20/2019 Document Reviewed: 03/20/2019 [employer] Patient Education 2020 RunAlong. Follow Up Care 05/30/2022 11:17:27 With:TRA NAGEL, Isidoro Deshpande, URL Address: [facility] [address], [place] [address]- When: Unknown [facility] 06-03-2022 Hospital Discharge instructions Patient Education 01/14/2022 09:41:08 Prostate Cancer, Kxln-pw-Vzox Prostate Cancer The prostate is a male gland that helps make semen. Prostate cancer is when abnormal cells grow in this gland. Follow these instructions at home: Take gvpz-zju-osyaxry and prescription medicines only as told by [...] 07/19/2010 Document Revised: 07/13/2018 Document Reviewed: 04/10/2017 [employer] Patient Education 2020 RunAlong. Follow Up Care 12/20/2021 10:34:40 With:TRA NAGEL, Isidoro Deshpande, URL Address: [facility] [address], [place] [address]- When: Unknown [facility] [place] 05-09-2022 Hospital Discharge instructions Patient Education 12/20/2021 08:06:57 Prostate Cancer, Fgdl-sv-Wxkr Prostate Cancer The prostate is a male gland that helps make semen. Prostate cancer is when abnormal cells grow in this gland. Follow these instructions at home: Take uvoy-mxf-fkopdxu and prescription medicines only as told by [...] 07/19/2010 Document Revised: 07/13/2018 Document Reviewed: 04/10/2017 [employer] Patient Education 2019 [place] Follow Up Care 12/17/2021 11:19:32 With:TRA NAGEL, Isidoro Deshpande, URL Address: [facility] [address] [place] [address]- When: Unknown [facility] [place] 05-06-2022 Hospital Discharge instructions Patient Education 12/17/2021 [...] who: Are older than age 65. Are -Vietnamese. Are obese. Have a family history of [...] cells. Follow these instructions at home: Take zern-pac-vdzqmkz and prescription medicines only as told by [...] 07/31/2006 Document Revised: 07/13/2018 Document Reviewed: 04/10/2017 [employer] Patient Education 2020 RunAlong. Follow Up Care 12/15/2021 13:23:32 With:TRA NAGEL, Isidoro Deshpande, URL Address: [facility] [address] [place] [address]- [phone] When:3 to 4 days Comments:Dr. Gaitan to take out catheter [facility] [place] 05-04-2022 Hospital Discharge instructions Patient Education 12/15/2021 [...] who: Are older than age 65. Are -Vietnamese. Are obese. Have a family history of [...] cells. Follow these instructions at home: Take gdyz-muz-ujleabl and prescription medicines only as told by [...] 07/31/2006 Document Revised: 07/13/2018 Document Reviewed: 04/10/2017 [employer] Patient Education 2020 RunAlong. 12/15/2021 13:16:04 Prostate Cancer Prostate Cancer The [...] who: Are older than age 65. Are -Vietnamese. Are obese. Have a family history of [...] cells. Follow these instructions at home: Take pttg-gpp-ozvrfwz and prescription medicines only as told by [...] 07/31/2006 Document Revised: 07/13/2018 Document Reviewed: 04/10/2017 [employer] Patient Education 2020 RunAlong. Follow Up Care 12/14/2021 15:41:04 With:TRA NAGEL, Isidoro Deshpande, URL Address: [facility] [address] [place] [address]- Business (1) When: Unknown [facility] 04-01-2022 History general Narrative - Reported* Type Description Date Medical History HERI (generalized anxiety disorde r) Medical History Prostate cancer Medical History Elevated cholesterol Surgical History Colonoscopy (repeat 5 years ) 2 019 Surgical History Radical prostatectomy 11/2021 Hospitalization History SEE SURGICAL HX [employer] Other 03-21-2022 Hospital Discharge instructions Patient Education [...] including vitamins, herbs, eye drops, creams, and bijo-xty-jvkhxnh medicines. Any problems you or family members [...] 07/31/2006 Document Revised: 07/13/2018 Document Reviewed: 07/17/2017 [employer] Patient Education 2020 RunAlong. 11/01/2021 13:15:19 Prostate Cancer Prostate Cancer The [...] who: Are older than age 65. Are -Vietnamese. Are obese. Have a family history of [...] cells. Follow these instructions at home: Take gcas-oxg-ujkzffp and prescription medicines only as told by [...] 07/31/2006 Document Revised: 07/13/2018 Document Reviewed: 04/10/2017 [employer] Patient Education 2020 RunAlong. 11/01/2021 13:15:17 Brachytherapy for Prostate Cancer Brachytherapy [...] including vitamins, herbs, eye drops, creams, and ogfr-pkb-qfvbsyj medicines. Any problems you or family members [...] 01/08/2007 Document Revised: 07/13/2018 Document Reviewed: 08/09/2017 [employer] Patient Education 2020 RunAlong. Follow Up Care 09/17/2021 12:52:37 With:Isidoro GAITAN MD, URL Address: [facility] [address], [place] [address]- [phone] When: Unknown Comments:Patient to call with his decision regarding prostate cancer [facility] evaluation + Plan note No data available for this section [facility] evaluation + Plan note Future Appointments Appointment Date:12/17/2021 10:45:00 AM Scheduled Provider:Isidoro GAITAN MD Location:[facility] Appointment Type:URO Office Visit [facility] Evaluation + Plan note Future Appointments Appointment Date:12/20/2021 09:30:00 AM Scheduled Provider:Isidoro GAITAN MD Location:[facility] Appointment Type:URO Office Visit [facility] evaluation + Plan note Future Appointments Appointment Date:01/14/2022 09:45:00 AM Scheduled Provider:Isid[facility] GAITAN [facility] App[facility] Type:URO Office Visit Diagnostic Tests Pending * PSA Total 12/20/21 [facility] evaluation + Plan note Future Appointments Appointment Date:05/09/2022 10:45:00 AM Scheduled Provider:Isidoro GAITAN MD [facility] Appoint[facility] Type:URO Office Visit Diagnostic Tests Pending * PSA Total 01/14/22 [facility] evaluation + Plan note Future Appointments Appointment Date:12/09/2022 10:15:00 AM Scheduled Provider:Isidoro GAITAN MD [facility] Appointment Type:URO Office Visit Diagnostic Tests Pending * PSA Total 09/12/22 [facility] evaluation + Plan note Future Appointments Appointment Date:10/30/2023 10:30:00 AM Scheduled Provider:Isidoro GAITAN MD Location:[facility] Appointment Type:URO Office Visit Diagnostic Tests Pending * PSA Total 04/24/23 [facility] evaluation + Plan note Future Appointments Appointment Date:01/03/2025 10:45:00 AM Scheduled Provider:Isidoro GAITAN MD Location:[facility] Appointment Type:URO Office Visit Diagnostic Tests Pending * PSA Total 01/01/24 [facility] evaluation noteNo [employer] Other Evaluation note* Diagnosis Onset Date Resolution Status Elevated cholesterol acute HERI (generalized anxiety disorder) acute Primary hypertension acute Prostate cancer acute Weight loss, abnormal acute Elevated cholesterol acute HERI (generalized anxiety disorder) acute Glucosuria acute Primary hypertension acute Prostate cancer acute Weight loss, abnormal acute Medicare annual wellness visit, initial noneactive [facility] Work Phone: Evaluation note* Diagnosis Onset Date Resolution Status Admit Date Elevated cholesterol acute Febr ua2024 2:29pm HERI (generalized anxiety disorder) acute October 07, 2:29pm Glucosuria acute October 07, 2024 2:29pm Primary hypertension acute Febr ua2024 2:29pm Weight loss, abnormal acute Feb ruary 2024 2:29pm [facility] Work Phone: History and physical note Author De Travis [facility] May 28, 2024 11:10am Note Date/Time May 28, 2024 1 1:10am [facility] [address] [place] [address] Gastroenterology H&P Signed Patient: Tawanda Warner MR#: [id number] : 1960 Acct:[id number] Age/Sex: 64 / M Adm Date: 4 Loc: Room: Type: [facility] Attending Dr: De Travis MD Copies to: DO De Gomes MD~ Date of Service: 05/28/2024 HISTORY & PHYSICAL: Patient's history with special attention to the cardiovascular, pulmonary systems and the current problem was reviewed with the patient immediately prior to the procedure. Present medications and doses reviewed in the EMR. Allergies and pertinent laboratory tests were also reviewedat this time in the EMR. The physical examination, as below, was then performed. Indication, assessment and HPI: 64-year-old man with history of colonic polyps here for EGD/colonoscopy for evaluation of unintentional weight loss and for surveillance colonoscopy Family history of GI malignancy? No PHYSICAL EXAMINATION General appearance: NAD Skin: No jaundice Head: NC/AT Eyes: Anicteric Neck: Supple Lungs: Normal respiratory effort, no use of accessory muscles Abdomen: nondistended Neuro: Ox3. REVIEW OF SYSTEMS Constitutional: Denies malaise, fevers Cardiovascular: Denies chest pain, palpitations Respiratory: Denies shortness of breath, wheezing Gastrointestinal: As per HPI Genitourinary: Denies dysuria, polyuria Musculoskeletal: Denies joint swelling, joint stiffness Neurological: Denies confusion, numbness, tingling Endocrine: Denies fatigue Written informed consent obtained from the patient. Risks (including but not limited to perforation, infection, bloating, bleeding, need for emergent surgeryand loss of life), benefits and alternatives explained and questions answered. The patient verbalized understanding. Based on history patient is an appropriate candidate for the procedure. De Travis M.D. Documented By: De Travis MD 05/28/24 1109 Signed By: <Electronically signed by De Travis MD> 05/28/24 1110 [facility] Work Phone: Progress note No data available for this section [facility] reason for referral (narrative)* Reason *FU 05/24 Referral for left sided eustachian tube dysfunction Diagnosis 1 Dysfunction of left eustachian tube (H69.92) Referral Organization [facility] Arnoldo saab Referring Provider First Name Pardeep Referring Provider Last Name Arnoldo Referring Provider Specialty Internal Me dicine Referred Organization [facility] Referred Provider Anjelica Oneill Referred Address ,[place], [place],[address] Referred Provider Specialty Otolaryngolo gy Referral Priority Routine General Notes Patient w/ 2 year hx of plugged left ear. Denies tinnitus, vertigo or otorrhea. Needs Audiogram and ENT evaluation. Cely Armijo 05/17/2023 03:25:49 PM >received today, attachments made, notes locked, referral faxed and sent [employer] Other Reason for referral (narrative)* Reason *Waiting for appt Referral for screening colonoscopy due in November, Diagnosis 1 Screening for colon cancer (Z12.11) Diagnosis 2 Adenomatous polyp of descending colon (D12.4) Referral Organization [facility] Referring Provider First Name Pardeep Referring Provider Last Name Arnoldo Referring Provider Specialty Internal Me dicine Referred Organization [facility] Referred Provider Jonnathan Schaeffer Referred Address [address],[place] [address] ,[place], [place],[address] Referred Provider Specialty Gastroentero logy Referral Priority Routine General Notes He is due for screen ing colonoscopy in November,. He denies change in appetite, weight or bowel habits. He denies heartburn, dysphagia, melena or hematochezia. Cely Armijo 09/18/2023 10:45:35 AM >received today, referral faxed [employer] Other Summary Purpose Family History No Family History Records Found Relationship Condition Age at Onset Recorded Date/T yanet father Hypertension Unknown Diabetes mellitus Unknown mother Malignant neoplasm Unknown Unknown Malignant neoplasm of uterus Unknown Advance Directives No Advanced Directives Records Found Advance Directive Response Recorded Date/ Time Advance Directives No September 18, 2023 10:08am Advance Directive Response Recorded Date/ Time Advance Directives No September 18, 2023 9:08am Chief Complaint and Reason for Visit Chief Complaint black mold in house causing symptoms CC Adult Risk Stratification Wellness Reason for Visit Elevated cholesterol HERI (generalized anxiety disorder) Primary hypertension Prostate cancer Weight loss, abnormal Elevated cholesterol HERI (generalized anxiety disorder) Glucosuria Primary hypertension Prostate cancer Weight loss, abnormal Medicare annual wellness visit, initial Chief Complaint black mold in house causing symptoms CC Adult Risk Stratification Wellness abnormal weight loss, screening abnormal weight loss, screening Reason for Visit Elevated cholesterol HERI (generalized anxiety disorder) Primary hypertension Prostate cancer Weight loss, abnormal Elevated cholesterol HERI (generalized anxiety disorder) Glucosuria Primary hypertension Prostate cancer Weight loss, abnormal Medicare annual wellness visit, initial Chief Complaint Admit Date black mold in house causing symptoms Sep tember 2023 11:23am CC Adult Risk Stratification May 2:13pm Wellness May 20, 2024 8: 53am abnormal weight loss, screening May 28, 2024 9:31am abnormal weight loss, screening May 28, 2024 11:09am Amb Documentation May 28, 2024 2 :03pm Check up June 26, 2024 2:23pm Reason for Visit Admit Date Elevated cholesterol April 22, 2024 11:23am HERI (generalized anxiety disorder) Septe mber 2023 11:23am Primary hypertension April 22, 2024 11:23am Prostate cancer April 22, 2024 11:23am Weight loss, abnormal April 22 11:23am Elevated cholesterol May 20, 2024 8 :53am HERI (generalized anxiety disorder) Octob er 2023 8:53am Glucosuria May 20, 2024 8: 53am Primary hypertension May 20, 2024 8 :53am Prostate cancer May 20, 2024 8: 53am Weight loss, abnormal May 20, 2024 8:53am Medicare annual wellness visit, initial May 20, 2024 8:53am Elevated cholesterol June 26, 2024 2:23pm HERI (generalized anxiety disorder) Novem rosette 2023 2:23pm Glucosuria June 26, 2024 2:23pm Primary hypertension June 26, 2024 2:23pm Weight loss, abnormal June 26 2:23pm Chief Complaint Admit Date 3 month f/u October 07, 2024 2:29pm Reason for Visit Admit Date Elevated cholesterol October 07, 2024 2:29pm HERI (generalized anxiety disorder) Febru med 2024 2:29pm Glucosuria October 07, 2024 2:29pm Primary hypertension October 07, 2024 2:29pm Weight loss, abnormal October 07 2:29pm Additional Source Comments Patient Care team informatio n (unrecognized section and content) Team Status: Active Member Role Status Dates Pardeep Mclaughlin DO Primary Care Provider Active Team Status: Inactive Member Role Status Dates Pardeep Mclaughlin DO Primary Care Provide r, Attending Provider Active Start: April 22, 2024 End: April 22, 2024 Team Status: Active Member Role Status Dates Pardeep Mclaughlin DO Primary Care Provider Active Start: April 25, 2024 Alysha Osborne PA-C Attending Provider Active Start : April 25, 2024 Team Status: Active Member Role Status Dates Pardeep Mclaughlin DO Primary Care Provide r, Attending Provider Active Start: May 17, 2024 Team Status: Inactive Member Role Status Dates Pardeep Mclaughlin DO Primary Care Provide r, Attending Provider Active Start: May 20, 2024 End: May 20, 2024 Team Status: Active Member Role Status Dates Pardeep Mclaughlin DO Primary Care Provide r, Attending Provider Active Start: May 21, 2024 Team Status: Inactive Member Role Status Dates Pardeep Mclaughlin DO Primary Care Provider Active Start: May 28, 2024 End: May 28, 2024 De Travis MD Attending Provider Active Start: May 28, 2024 End: May 28, 2024 Team Status: Active Member Role Status Dates Pardeep Mclaughlin DO Primary Care Provider Active Start: May 28, 2024 De Travis MD Attending Provider, Other Provider Active Start: May 28, 2024 Team Status: Active Member Role Status Dates Pardeep Mclaughlin DO Primary Care Provider Active Start: May 28, 2024 Alysha Johns CMA Attending Provider Active St art: May 28, 2024 Team Status: Inactive Member Role Status Dates Pardeep Mclaughlin DO Primary Care Provide r, Attending Provider Active Start: June 26, 2024 End: June 26, 2024 Team Status: Inactive Member Role Status Dates Pardeep Mclaughlin DO Primary Care Provide r, Attending Provider Active Start: October 07, 2024 End: October 07, 2024 (unrecognized sect ion and content) No Status Records FoundNo Status Records FoundNo Status Records Found INFORMATION SOURCE (unrecogn ized section and content) DATE CREATED AUTHOR 11/26/2022 [facility] DATE CREATED AUTHOR AUTHOR'S ORGANIZ ATION 06/07/2024 [facility] DATE CREATED AUTHOR AUTHOR'S ORGANIZ ATION 05/01/2025 [facility] REASON FOR VISIT (unrecogniz ed section and content) WellnessBP readingsBP readin gs/medicationENT REFERRAL UPDATEBP readings4 month Follow up Goals (unrecognized section and content) Goals may be documented in a n alternate section FOR RECORDS PERTAINING TO PATIENTS WHO ARE [...] BE BASED ON THE PRIMARY CLINICAL RECORDS. [facility] provides no warranty or guarantee of the accuracy or completeness of information in this document.
[2025-05-21 15:55] LABS: Prostate Specific Antigen Dx <0.13 ng/mL (<=4.00)
== END 2025-05-21 12:25 | disposition home or self-care (01) ==
LOC: LAB 12:25
PROVIDERS: PCP Internal Medicine; Visit Provider Urology
DX: C61 Malignant neoplasm of prostate (principal)
CPT/HCPCS: 36415; 84153